=== PATIENT | female | born 1980 | race Caucasian/White ===

== ENCOUNTER → 2020-07-15 14:53 | Outpatient (CLI) | payer OTHER, SELFPAY ==
[2020-07-18 07:42] LABS: SARS-COV-2 TOTAL ABS Reactive (Nonreactive)
== END ==
PROVIDERS: PCP Family Medicine; Referring Provider Family Medicine; Visit Provider Family Medicine
DX: U07.1 COVID-19 (principal)
CPT/HCPCS: 36415; 86769

== ENCOUNTER → 2020-10-08 11:09 | Outpatient (CLI) | payer OTHER, SELFPAY ==
[2020-10-08 12:38] LABS: Vitamin D,25 Hydroxy 19.8 ng/mL
[2020-10-08 12:44] LABS: ALB/GLOB Ratio 1.1 RATIO (0.9-2.4); AST(SGOT) 13 U/L (15-37); Alanine Aminotransfer ALT/SGPT 17 U/L (13-56); Albumin, Serum 3.8 g/dL (3.2-5.0); Alkaline Phosphatase 52 U/L (45-117); Anion Gap 6 (5-15); BUN 12 mg/dL (7-18); BUN/Creat Ratio 15.6 RATIO (10-20); Calcium,Total 8.8 mg/dL (8.5-10.1); Chloride 108 mmol/L (98-107); Cholesterol 183 mg/dL (200); Creatinine, Serum 0.77 mg/dL (0.55-1.02); EST Glomerular Filtration Rate 89 mL/min (>60); Est Glom Filt Rate - Afr Amer 107 mL/min (>60); Free T3 2.2 pg/mL (2.18-3.98); Globulin 3.6 g/dL (2.2-4.2); Glucose 76 mg/dL (74-106); High Density Lipoprotein 58 mg/dL; Potassium 3.9 mmol/L (3.5-5.1); Protein, Total 7.4 g/dL (6.4-8.2); Sodium Level 140 mmol/L (136-145); T4 Free Direct 0.97 ng/dL (0.76-1.46); Thyroid Stim Hormone (TSH) 1.46 uIU/mL (0.358-3.74); Triglycerides 150 mg/dL; Very Low Density Lipoprotein 30 mg/dL (5-40)
[2020-10-14 13:51] LABS: SARS-COV-2 TOTAL ABS Reactive (Nonreactive)
== END ==
PROVIDERS: Nurse Practitioner Adult Health; PCP Family Medicine; Referring Provider Family Medicine; Visit Provider Family Medicine
DX: Z00.00 Encounter for general adult medical examination without abnormal findings (principal); U07.1 COVID-19; K58.9 Irritable bowel syndrome, unspecified; E04.9 Nontoxic goiter, unspecified; E55.9 Vitamin D deficiency, unspecified; Z13.220 Encounter for screening for lipoid disorders
CPT/HCPCS: 36415; 80053; 80061; 82306; 84439; 84443; 84481; 86769

== ENCOUNTER → 2020-12-02 12:30 | Outpatient (CLI) | payer OTHER, SELFPAY ==
[2020-12-02 12:43] LABS: Red Blood Cells-Urine 0 SEEN /hpf (0-5)
[2020-12-02 15:11] LABS: Hematocrit 38.8 % (37-47); Mean Corp Hgb Conc 30.9 g/dL (32-36); Mean Corpuscular Hgb 26.4 pg (27.0-32.0); Mean Corpuscular Volume 85.3 fL (81-99); Mean Platelet Vol. 12.3 fl (6.2-12.0); Platelet Count 201 K/mm3 (150-450); RBC Distribution Width CV 13.1 % (11.6-14.6); RBC Distribution Width SD 40.4 fl (35.1-43.9); Red Blood Count 4.55 M/mm3 (4.2-5.4); White Blood Count 5.1 K/mm3 (4.4-11.0)
[2020-12-02 15:14] LABS: Color, Urine Yellow (Yellow); Glucose, Dipstick Normal (Normal); Ketone-Dipstick Negative (Negative); Leukocyte Esterase-Dipstick Negative /ul (Negative); Nitrite-Dipstick Negative (Negative); Occult Blood-Urine Negative /ul (Negative); Protein-Dipstick 15 mg/dl (Negative); Specific Gravity, Urine 1.015 (1.002-1.030); Urine Bilirubin Dipstick Negative (Negative); Urine Clarity Sl. Cloudy (Clear); Urine Urobilinogen Normal (Normal)
[2020-12-02 15:31] LABS: ALB/GLOB Ratio 1.1 RATIO (0.9-2.4); AST(SGOT) 10 U/L (15-37); Alanine Aminotransfer ALT/SGPT 18 U/L (13-56); Albumin, Serum 4.1 g/dL (3.2-5.0); Alkaline Phosphatase 54 U/L (45-117); Anion Gap 4 (5-15); BUN 10 mg/dL (7-18); BUN/Creat Ratio 12.3 RATIO (10-20); CRP < 2.90 mg/L (0.0-3.0); Calcium,Total 8.9 mg/dL (8.5-10.1); Chloride 106 mmol/L (98-107); Creatinine, Serum 0.81 mg/dL (0.55-1.02); EST Glomerular Filtration Rate 84 mL/min (>60); Est Glom Filt Rate - Afr Amer 101 mL/min (>60); Globulin 3.6 g/dL (2.2-4.2); Glucose 83 mg/dL (74-106); Potassium 3.6 mmol/L (3.5-5.1); Protein, Total 7.7 g/dL (6.4-8.2); Sodium Level 140 mmol/L (136-145)
[2020-12-02 15:47] LABS: Bacteria 2+ /hpf (None Seen); Squamous Epithelial Cells - UA 10-25 SEEN /hpf (5-10); White Blood Cells 0-5 SEEN /hpf (0-5)
[2020-12-02 15:48] LABS: Mucous, Urine 3+ /hpf (<or=2+)
[2020-12-02 16:05] LABS: Erythrocyte Sedimentation Rate 3 mm/hr (0-30)
[2020-12-06 17:27] LABS: Anti-Nuclear Antibody Test Negative (.); Anti-dsDNA Ab <1 IU/mL (0-9)
== END ==
PROVIDERS: PCP Family Medicine; Referring Provider Dermatology; Visit Provider Dermatology
DX: L30.9 Dermatitis, unspecified (principal); D17.21 Benign lipomatous neoplasm of skin and subcutaneous tissue of right arm
CPT/HCPCS: 36415; 80053; 81001; 85027; 85652; 86038; 86140; 86225

== ENCOUNTER → 2021-07-23 15:38 | Outpatient (CLI) | payer OTHER, SELFPAY | PROVIDERS: PCP Family Medicine; Referring Provider Family Medicine; Visit Provider Family Medicine | DX: U07.1 COVID-19 (principal) | CPT/HCPCS: 36415; 86769 ==

== ENCOUNTER → 2022-10-31 | Outpatient (CLI) | payer OTHER, SELFPAY ==
--- NOTE | 2022-10-31 15:51 | RAD_ITS ---
EXAM: XR CHEST, 2 VIEWS CLINICAL INDICATION: SOB TECHNIQUE: Frontal and lateral views of the chest. This report was created using [employer] report generation technology. COMPARISON: 07/23/2015 FINDINGS: LUNGS AND PLEURAL SPACES: Unremarkable. No consolidation or edema. No pneumothorax. No effusion. HEART: Unremarkable. Cardiac silhouette not enlarged. MEDIASTINUM: Central airways and mediastinal contour are unremarkable. BONES/JOINTS: Unremarkable. SOFT TISSUES: Unremarkable. RAD/Chest PA and Lateral IMPRESSION: No radiographic evidence of acute cardiopulmonary disease. Electronically Signed: Shayan Hoyos MD at 2:30 EDT ,
[2022-10-31 18:20] LABS: Absolute Lymphocyte Count 1.78 X10^3/uL (0.83-4.51); Absolute Neutrophil Count 14.5 X10^3/uL (2.0-7.7); Basophil# 0.03 X10^3/uL; Basophil% 0.2 % (0-1); Eosinophil# 0.02 X10^3/uL; Eosinophils% 0.1 % (0-5); Hematocrit 42.8 % (37-47); Hemoglobin 13.5 g/dL (12.0-15.0); Lymphocyte # 1.78 X10^3/ul (0.83-4.51); Lymphocyte % 9.9 % (19-41); Mean Corp Hgb Conc 31.5 g/dL (32-36); Mean Corpuscular Hgb 26.6 pg (27.0-32.0); Mean Corpuscular Volume 84.4 fL (81-99); Mean Platelet Vol. 12.3 fl (6.2-12.0); Monocyte# 1.63 X10^3/uL; Monocyte% 9.1 % (0-10); NRBC Flagged by Analyzer 0 % (0-5); Neutrophil # 14.45 X10^3/uL (2.7-7.7); Neutrophil % 80.3 % (47-70); POSITIVE DIFFERENTIAL YES; Platelet Count 230 K/mm3 (150-450); RBC Distribution Width CV 13.5 % (11.6-14.6); RBC Distribution Width SD 41.6 fl (35.1-43.9); Red Blood Count 5.07 M/mm3 (4.2-5.4)
[2022-10-31 18:29] LABS: Anion Gap 8 (5-15); BUN 14 mg/dL (7-18); BUN/Creat Ratio 15.8 RATIO (10-20); Calcium,Total 9.4 mg/dL (8.5-10.1); Chloride 105 mmol/L (98-107); Creatinine, Serum 0.89 mg/dL (0.55-1.02); EST Glomerular Filtration Rate 75 mL/min (>60); Est Glom Filt Rate - Afr Amer 90 mL/min (>60); Glucose 105 mg/dL (74-106); Potassium 3.6 mmol/L (3.5-5.1); Sodium Level 139 mmol/L (136-145)
[2022-10-31 18:37] LABS: BNP,B-Type NATRIURETIC PEPTIDE 36.2 pg/mL (0-100)
[2022-10-31 18:49] LABS: Differential Indicated SCAN CRITERIA MET
[2022-10-31 19:23] LABS: Differential Comment SCANNED
[2022-10-31 19:24] LABS: Platelet Estimate ADEQUATE (ADEQ)
[2022-10-31 22:54] LABS: Fibrinogen 297 mg/dl (203-444)
[2022-10-31 22:59] LABS: D-Dimer Quantitative (DVT/PE) < 0.27 FEU/ug/m (0.27-0.49)
[2022-11-01 12:15] LABS: Pathologist Review Reviewed
== END | disposition home or self-care (01) ==
PROVIDERS: PCP Family Medicine; Referring Provider Nurse Practitioner Family; Visit Provider Nurse Practitioner Family
DX: R06.02 Shortness of breath (principal)
CPT/HCPCS: 36415; 71046; 80048; 83880; 85025; 85379; 85384

== ENCOUNTER → 2022-12-21 | Outpatient (CLI) | payer OTHER, SELFPAY ==
[2022-12-21 17:59] LABS: Absolute Lymphocyte Count 2.23 X10^3/uL (0.83-4.51); Absolute Neutrophil Count 5.6 X10^3/uL (2.0-7.7); Basophil# 0.02 X10^3/uL; Basophil% 0.2 % (0-1); Eosinophil# 0.21 X10^3/uL; Eosinophils% 2.4 % (0-5); Hematocrit 40.6 % (37-47); Hemoglobin 12.8 g/dL (12.0-15.0); Lymphocyte # 2.23 X10^3/ul (0.83-4.51); Lymphocyte % 25.4 % (19-41); Mean Corp Hgb Conc 31.5 g/dL (32-36); Mean Corpuscular Hgb 26.8 pg (27.0-32.0); Mean Corpuscular Volume 85.1 fL (81-99); Mean Platelet Vol. 12.3 fl (6.2-12.0); Monocyte# 0.75 X10^3/uL; Monocyte% 8.5 % (0-10); NRBC Flagged by Analyzer 0 % (0-5); Neutrophil # 5.56 X10^3/uL (2.7-7.7); Neutrophil % 63.3 % (47-70); Platelet Count 171 K/mm3 (150-450); RBC Distribution Width CV 13.7 % (11.6-14.6); RBC Distribution Width SD 42.5 fl (35.1-43.9); Red Blood Count 4.77 M/mm3 (4.2-5.4); White Blood Count 8.8 K/mm3 (4.4-11.0)
== END | disposition home or self-care (01) ==
LOC: MFPLAB 16:46
PROVIDERS: PCP Family Medicine; Visit Provider Nurse Practitioner Family
DX: D72.829 Elevated white blood cell count, unspecified (principal)
CPT/HCPCS: 36415; 85025

== ENCOUNTER → 2023-01-17 | Outpatient (CLI) | payer OTHER, SELFPAY ==
[2023-01-17 12:21] LABS: Hematocrit 41.2 % (37-47); Mean Corp Hgb Conc 31.6 g/dL (32-36); Mean Corpuscular Hgb 27.6 pg (27.0-32.0); Mean Corpuscular Volume 87.5 fL (81-99); Mean Platelet Vol. 12.4 fl (6.2-12.0); Platelet Count 174 K/mm3 (150-450); RBC Distribution Width CV 13.3 % (11.6-14.6); RBC Distribution Width SD 42.6 fl (35.1-43.9); Red Blood Count 4.71 M/mm3 (4.2-5.4); White Blood Count 5.6 K/mm3 (4.4-11.0)
[2023-01-17 12:35] LABS: Vitamin D,25 Hydroxy 27.5 ng/mL
[2023-01-17 12:45] LABS: Anion Gap 7 (5-15); BUN 16 mg/dL (7-18); BUN/Creat Ratio 15.2 RATIO (10-20); Calcium,Total 9.3 mg/dL (8.5-10.1); Chloride 109 mmol/L (98-107); Creatinine, Serum 1.05 mg/dL (0.55-1.02); EST Glomerular Filtration Rate 61 mL/min (>60); Est Glom Filt Rate - Afr Amer 74 mL/min (>60); Glucose 79 mg/dL (74-106); Potassium 4.5 mmol/L (3.5-5.1); Sodium Level 141 mmol/L (136-145); Thyroid Stim Hormone (TSH) 1.87 uIU/mL (0.358-3.74)
== END | disposition home or self-care (01) ==
LOC: MFPLAB 10:27
PROVIDERS: PCP Family Medicine; Visit Provider Nurse Practitioner Family
DX: E55.9 Vitamin D deficiency, unspecified (principal); Z13.1 Encounter for screening for diabetes mellitus; R53.83 Other fatigue
CPT/HCPCS: 36415; 80048; 82306; 84443; 85027

== ENCOUNTER → 2023-01-18 | Outpatient (CLI) | payer OTHER, SELFPAY ==
[2023-01-18 15:51] LABS: Erythrocyte Sedimentation Rate 8 mm/hr (0-30)
[2023-01-18 16:11] LABS: CRP, High Sensitivity Cardiac 1.11 mg/L
== END | disposition home or self-care (01) ==
PROVIDERS: PCP Family Medicine
DX: G43.711 Chronic migraine without aura, intractable, with status migrainosus (principal)
CPT/HCPCS: 36415; 85652; 86141

== ENCOUNTER → 2024-06-10 | Outpatient (CLI) | payer OTHER, SELFPAY ==
--- NOTE | 2024-06-10 07:32 | US_ITS ---
STUDY: RIGHT UPPER QUADRANT ABDOMINAL ULTRASOUND REASON FOR EXAM: Female, 43 years old. Abdominal pain wraps around to the back TECHNIQUE: Transabdominal ultrasound was performed with real-time and static marin scale imaging. TECHNICAL QUALITY: Adequate. COMPARISON: None. FINDINGS: Liver: The liver measures 15.2 cm. There is increased echogenicity consistent with fatty infiltration. The bile ducts are within normal limits. There is hepatic color flow. The direction of portal flow is hepatopetal. There is no demonstrated mass lesion. Gallbladder: Normal distended gallbladder. The gallbladder wall measures 2 mm. There is no pericholecystic fluid. There are no gallstones. Common Bile Duct (C.B.D.): The common bile duct measures 6 mm. Pancreas: Normal size of the head, body and tail of the pancreas.. There is normal echogenicity of the pancreas. There is no demonstrated pancreatic mass or cyst. Right Kidney: Normal size of the right kidney. The right kidney measures 10.3 x 5.5 cm. Normal renal cortex. There is no demonstrated renal mass or cyst. There is no right hydronephrosis. There is no ascites. US/Abdomen Limited IMPRESSION: Normal abdominal ultrasound examination. Electronically Signed: Bharat Rojo MD at 13:23 EDT ,
--- OUTSIDE RECORDS SUMMARY | 2024-06-10 07:33 | XMS RPT_ITS | CCD ---
Author Organization [facility] Care Team Providers Care Coating Machine Feeder Name Role Phone Iliana ALVARES, Maria Fernanda Nance Primary Care Provider ILIANA ALVARES, DR IRVING Primary Care Physician SELF, SELF Referring Unavailable Iliana ALVARES, Maria Fernanda Nance Primary Care Provider Maria Fernanda Barrientos MD Primary Care Provider MARIA FERNANDA BARRIENTOS Primary Care Unavailabl e GRADY DEBORAH Attending Unavailable MARIA FERNANDA BARRIENTOS Primary Care Unavailabl e GRADY DEBORAH Referring Unavailable MARIA FERNANDA BARRIENTOS Primary Care Unavailabl e RASMUSSEN, DEBORAH Referring Unavailable MARIA FERNANDA BARRIENTOS Primary Care Unavailabl e RASMUSSEN, DEBORAH Referring Unavailable ASHLY RASMUSSENICA Attending Unavailable NIKHIL EDEN Attending Bronwyn BARRIENTOS MD, DR IRVING Primary Care Mirna BARRIENTOS MD, DR IRVING [facility] Mirna CHIANG MD, DR RAO Attending UnavailNIKHIL Schultz Attending Unavailable ILIANA ALVARES, DR IRVING Primary [facility] NIKHIL Martin Attending Unavailable ILIANA ALVARES, DR IRVING Primary Care Mirna BARRIENTOS MD, DR IRVING Primary Care NIKHIL Martin MD Attending Unavailable JENNIFER SAMS MD Consulting NIKHIL Kenney MD Admitting Unavailable NIKHIL EDEN MD Attending Unavailable ILIANA ALVARES, DR IRVING Primary Care NIKHIL Martin MD Attending Unavailable ILIANA ALVARES, DR IRVING Primary Care Mirna EDEN MD, NIKHIL Attending Unavailable ILIANA ALVARES, DR IRVING Primary [facility] VALERIE Ramirez Attending Unavailable ILIANA ALVARES, DR IRVING Primary Care Mirna salgado Medications Current Medications Medication Drug Class(es) Dates Sig (Normalized) Sig (Original) onabotulinumtoxina 100 unt injection (3 sources) Acetylcholine Release Inhibitor Start: 4 inject 1 dose by intramuscular injection every three months Botox 100 units injection Dose : 1.25 unit(s) =, Intramuscular, q3mo, 0 Refill(s) Start Date: 01/09/24 Status: Ordered cholecalciferol 0.125 mg oral tablet (18 sources) Vitamin D Start: 2 take 1 tablet by mouth once daily cholecalciferol (VITAMIN D-3) 5,000 unit tab Take 1 tablet by mouth once daily. 30 tablet 1 03/11/2022 Active Comment on above: Take 1 tablet by heena th once daily. cholestyramine resin 4000 mg powder for oral suspension (11 sources) Bile Acid Sequestrant Start: 1 take 4 g by mouth twice daily at mealtime cholestyramine-sucr ose (QUESTRAN) 4 gram powder Take 4 g by mouth twice daily with meals. 240 g 4 07/08/2021 Active Comment on above: Take 4 g by mouth tw ice daily with meals. clobetasol propionate 0.0005 mg/mg topical ointment (18 sources) Corticosteroid Start: 2 clobetasol (TEMOVATE) 0.05 % ointment Apply thin layer to affected area once a day x 4wks, then every other day for 4 wks, then twice weekly for 4 weeks then PRN for symptoms 60 g 3 03/11/2022 Active Comment on above: Apply thin layer to affected area once a day x 4wks, then every other day for 4 wks, then twice weekly for 4 weeks then PRN for symptoms diclofenac sodium 50 mg delayed release oral tablet (2 sources) Nonsteroidal Anti-inflammatory Drug Start: 4 diclofenac sodium 50 mg oral delayed release tablet Dose : 50 mg = 1 tab(s), Oral, TID, # 20 tab(s), 0 Refill(s), Pharmacy: [id number], 167.6, cm, 05/13/24 20:16:00 EDT, Height, kg, 05/13/24 20:16:00 EDT, Dosing Weight Start Date: 05/14/24 Status: Ordered docusate sodium 100 mg oral capsule (2 sources) Start: 4 Colace 100 mg oral capsule Dose : 100 mg = 1 cap(s), Oral, BID, # 20 cap(s), 0 Refill(s), Pharmacy: [id number], 167.6, cm, 05/13/24 20:16:00 EDT, Height, kg, 05/13/24 20:16:00 EDT, Dosing Weight Start Date: 05/14/24 Status: Ordered ferrous sulfate 325 mg delayed release oral tablet (1 source) Start: 4 End: 5 ferrous sulfate 325 mg (65 mg elemental iron) oral delayed release tablet Dose : 325 mg = 1 tab(s), Oral, BID, # 60 tab(s), 5 Refill(s), Pharmacy: [id number], 167.6, cm, 05/28/24 13:07:00 EDT, Height, kg, 05/28/24 13:07:00 EDT, Dosing Weight Start Date: 05/28/24 Stop Date: 11/24/24 Status: Ordered ketorolac tromethamine 10 mg oral tablet (8 sources) Nonsteroidal Anti-inflammatory Drug, Cyclooxygenase Inhibitor Start: 4 End: 4 take 1 tablet by mouth every six hours as needed keTORolac (TORADOL) 10 mg tablet Indications: Pelvic pain in female Take 1 tablet by mouth every 6 hours as needed. 30 tablet 0 12/26/2023 Active Start: 10-31-2023 End: 11-03-2023 ketorolac 10 mg oral tablet Dose : 10 mg = 1 tab(s), Oral, QID, PRN as needed for pain, not to exceed 40 mg/day and 5 days duration for all dose forms, X 3 day(s), # 12 tab(s), 0 Refill(s), 11/03/23 2:37:00 PM EDT Start Date: 10/31/23 Stop Date: 11/03/23 Status: Ordered Comment on above: Take 1 tablet by heena every 6 hours as needed. levonorgestrel 0.253680 mg/hr intrauterine system (20 sources) Progestin, Progestin-containing Intrauterine Device Start: End: levonorgestrel (MIRENA) 20 mcg/24 hours (8 yrs) 52 mg IUD 1 Each by INTRAUTERINE route as directed. 1 Each 0 08/17/2022 08/15/2030 Active Comment on above: 1 Each by INTRAUTERI NE route as directed. magnesium oxide 250 mg oral tablet (1 source) Start: End: Magnesium 250 mg tablet Dose : 500 mg = 2 tab(s), Oral, qDay, # 20 tab(s), 0 Refill(s) Start Date: 01/09/24 Stop Date: 01/18/24 Status: Ordered metroNIDAZOLE 500 mg oral tablet (4 sources) Nitroimidazole Antimicrobial Start: End: take 1 tablet by mouth twice daily metroNIDAZOLE (FLAGYL) 500 mg tablet Take 1 tablet by mouth two times a day for 7 days. 14 tablet 0 12/12/2023 12/19/2023 Active Start: 03-10-2022 End: 03-17-2022 take 1 tablet by mouth twice daily metroNIDAZOLE (FLAGYL) 500 mg tablet Take 1 tablet by mouth twice daily for 7 days. 14 tablet 0 03/10/2022 03/17/2022 Comment on above: Take 1 tablet by [facility] twice daily for 7 days. mupirocin 0.02 mg/mg topical ointment (2 sources) RNA Synthetase Inhibitor Antibacterial Start: mupirocin 2% topical ointment Apply 1 shaq, Topical, BID, Bilateral intranasal application twice daily x 5 days pre-surgery &/or as many days pre-surgery as possible., Apply to: nostril, each, # 22 gram(s), 0 Refill(s), Pharmacy: [id number], Ointment, 167, cm, 04/25/24 10:16:00 EDT, Height, 87.2, kg, 04/25/24 10:16:00 EDT, Dosing Weight Start Date: 04/25/24 Status: Ordered nortriptyline 10 mg oral capsule (6 sources) Tricyclic Antidepressant Start: nortriptyline 10 mg oral capsule Dose : 10 mg = 1 cap(s), Oral, qHS Start Date: 01/09/24 Status: Ordered oxyCODONE hydrochloride 5 mg oral tablet (2 sources) Opioid Agonist Start: End: oxyCODONE 5 mg oral tablet ( IMMEDIATE release ) Dose : 5 mg = 1 tab(s), Oral, q6h, X 4 day(s), # 16 tab(s), 0 Refill(s), 05/18/24 3:53:00 PM EDT, Pharmacy: [id number], Post-op pain, 167.6, cm, 05/13/24 20:16:00 EDT, Height, 84.8, kg, 05/13/24 20:16:00 EDT, Dosing Weight Start Date: 05/14/24 Stop Date: 05/18/24 Status: Ordered rimegepant 75 mg disintegrating oral tablet (13 sources) Start: rimegepant (NURTEC ODT) 75 mg disintegrating tablet Indications: Migraine without aura and without status migrainosus, not intractable Take 1 tablet by mouth as needed (for migriane pain. Max dose is 1 tab in 24 hrs.). 16 tablet 5 06/17/2022 Active Comment on above: Take 1 tablet by heena th as needed (for migriane pain. Max dose is 1 tab in 24 hrs.). spironolactone 100 mg oral tablet (5 sources) Aldosterone Antagonist Start: spironolactone 100 mg oral tablet Dose : 100 mg = 1 tab(s), Oral, qHS, 0 Refill(s) Start Date: 04/25/24 Status: Ordered valACYclovir 500 mg oral tablet (20 sources) Herpesvirus Nucleoside Analog DNA Polymerase Inhibitor, Herpes Simplex Virus Nucleoside Analog DNA Polymerase Inhibitor, Herpes Zoster Virus Nucleoside Analog DNA Polymerase Inhibitor Start: End: take 2 tablets by mouth twice daily valACYclovir (VALTREX) 1 gram Take 2 tablets by mouth twice daily for 1 day. 4 tablet 5 03/11/2022 03/12/2022 Active Start: 02-22-2022 take 1 tablet by heena th once daily valACYclovir (VALTREX) 500 mg tablet Take 1 tablet by mouth once daily. 30 tablet 11 03/11/2022 Active Comment on above: Take 2 tablets by mo [facility] twice daily for 1 day. Take 1 tablet by heena th once daily. Completed/Discontinued Medications Medication Drug Class(es) Dates Sig (Normalized) Sig (Original) bismuth subsalicylate 262 mg oral tablet (2 sources) Bismuth Bismuth Subsalicylate (PEPTO-BISMOL) 262 mg tab Take by mouth. 0 Active Comment on above: Take by mouth. fluconazole 150 mg oral tablet (1 source) Azole Antifungal Start: 03-10-2022 End: 03-10-2022 take 1 tablet by mouth once fluconazole (DIFLUCAN) 150 mg tablet Take 1 tablet by mouth one time only for 1 dose. 1 tablet 0 03/10/2022 03/10/2022 Comment on above: Take 1 tablet by heean th one time only for 1 dose. halobetasol propionate 0.0005 mg/mg topical ointment (2 sources) Corticosteroid Start: 05-06-2021 halobetasol propionate (ULTRAVATE) 0.05 % ointment Ibuprofen (4 sources) Nonsteroidal Anti-inflammatory Drug Start: 07-25-2017 ibuprofen (MOTRIN ORAL) 0 Refill(s) 0 07/25/2017 Active Start: 07-25-2017 Motrin 0 Refil l(s) Start Date: 07/25/17 Status: Ordered Comment on above: 0 Refill(s) loperamide hydrochloride 2 mg oral tablet (2 sources) Opioid Agonist take 1 tablet by mouth once as needed loperamide HCl (IMODIUM A-D) 2 mg tab Take 2 mg by mouth as needed. 0 Active Comment on above: Take 2 mg by mouth a s needed. phenazopyridine hydrochloride 200 mg oral tablet (2 sources) Start: 10-15-19 take 1 tablet by mouth every eight hours as needed phenazopyridine (PYRIDIUM) 200 mg tablet Take 1 tablet by mouth three times daily as needed. 9 tablet 0 10/15/2021 Active Comment on above: Take 1 tablet by heena three times daily as needed. SUMAtriptan 100 mg oral tablet (2 sources) Serotonin-1b and Serotonin-1d Receptor Agonist Start: 02-14-20 SUMAtriptan (IMITREX) 100 mg tablet TAKE 1 TABLET BY MOUTH NEEDED (TAKE AT MIGRAINE ONSET, MAY REPEAT 2 HOURS LATER IF NEEDED. MAX DOSE IS 2 TABLETS IN 24 DAYS) 0 02/13/2022 Active Comment on above: TAKE 1 TABLET BY HEENA TH NEEDED (TAKE AT MIGRAINE ONSET, MAY REPEAT 2 HOURS LATER IF NEEDED. MAX DOSE IS 2 TABLETS IN 24 DAYS) ubrogepant 50 mg oral tablet (5 sources) Start: 05-16-20 End: 06-17-20 ubrogepant (UBRELVY) 50 mg tablet Indications: Migraine without aura and without status migrainosus, not intractable Take 1 tablet by mouth as needed (take 1 tab at migraine onset. May repeat 2 hrs later if needed). 10 tablet 5 05/16/2022 06/17/2022 Discontinued (Course of therapy completed) Comment on above: Take 1 tablet by heena th as needed (take 1 tab at migraine onset. May repeat 2 hrs later if needed). Problems Problem Classification Problem Date Documented Date Episodic/Chronic Abdominal pain (6 sources) Abdominal pain; Translations: [Unspecified abdominal pain] Onset: 10-31-2023 Episodic Complication of device; implant or graft (3 sources) IUD threads lost; Translations: [Displacement of intrauterine contraceptive device, initial encounter] Episodic Contraceptive and procreative management (7 sources) Intrauterine contraceptive device in situ; Translations: [Encounter for routine checking of intrauterine contraceptive device] Onset: 12-11-2023 Episodic Endometriosis (1 source) Endometriosis (clinical); Translations: [Endometrioma] 12-26-2023 Chronic Genitourinary symptoms and ill-defined conditions (1 source) Urgent desire to urinate; Translations: [Urgency of urination] Episodic Headache; including migraine (7 sources) Migraine without aura, not refractory ; Translations: [Migraine without aura, not intractable, without status migrainosus] Chronic Immunizations and screening for infectious disease (1 source) Encounter for screening for human papillomavirus (HPV); Translations: [Encounter for screening for human papillomavirus (HPV)] Onset: 12-11-2023 Episodic Inflammatory diseases of female pelvic organs (2 sources) Bacterial vaginosis; Translations: [Acute vaginitis] Episodic Menstrual disorders (3 sources) Menorrhagia; Translations: [Excessive and frequent menstruation with regular cycle] Onset: 12-26-2023 12-11-2023 Chronic Mycoses (2 sources) Candidiasis of vagina; Translations: [Candidiasis of vulva and vagina] Episodic Nonmalignant breast conditions (1 source) Breast finding ; Translations: [Dense breast tissue] 12-11-2023 Episodic Other aftercare (1 source) Surgical follow-up; Translations: [Encounter for other specified surgical aftercare] Onset: 05-28-2024 Episodic Other female genital disorders (4 sources) Abnormal uterine bleeding; Translations: [Abnormal uterine and vaginal bleeding, unspecified] Chronic Other female genital disorders (1 source) Vaginal discharge; Translations: [Other specified noninflammatory disorders of vagina] Episodic Other female genital disorders (1 source) Polyp of corpus uteri; Translations: [Polyp of corpus uteri] 12-26-2023 Episodic Other inflammatory condition of skin (2 sources) Pruritus of vulva; Translations: [Pruritus vulvae] Episodic Other nutritional; endocrine; and metabolic disorders (1 source) Unintentional weight gain; Translations: [Abnormal weight gain] 12-11-2023 Episodic Other nutritional; endocrine; and metabolic disorders (1 source) Abnormal weight gain; Translations: [Unintended weight gain] Onset: 12-26-2023 Episodic Other conditions (3 sources) or effect of condition of umbilical cord 03-25-2014 Episodic Other screening for suspected conditions (not mental disorders or infectious disease) (10 sources) Patient encounter status; Translations: [Encounter for screening mammogram for malignant neoplasm of breast] Onset: 12-11-2023 Episodic Polyhydramnios and other problems of amniotic cavity (3 sources) Polyhydramnios 03-25-2014 Episodic Prolapse of female genital organs (3 sources) Vaginal vault prolapse; 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 Breast feeding Status documented as Yes on Admission Unclassified (3 sources) 03-25-2014 Unclassified (1 source) Dense breast tissue; Translations: [Dense breast tissue] Onset: 12-11-2023 Viral infection (2 sources) Herpes labialis; Translations: [Herpesviral vesicular dermatitis] Episodic Results Test Name Value Interpretation Reference Range Facil ity LABORATORYOrdered By: Antonella Ott on 05-28-2024 Appearance (U) Clear (05/28/24 2:07 PM) Normal Clear AH Auto Urine SS Bacteria LM.HPF (Urine sed) [#/Area] 1 /[HPF] Invalid Interpretation Code Negative AH Auto Urine SS Bilirubin Ql (U) Negative (05/28/24 2:07 PM) Normal Neg-Trace AH Auto Urine SS Color (U) Yellow (05/28/24 2:07 PM) Normal AH Auto Urine SS Glucose Test strip (U) [Mass/Vol] Negative Normal Negative AH Auto Urine SS Hemoglobin Auto test strip (U) [Mass/Vol] Small *ABN* (05/28/24 2:07 PM) Invalid Interpretation Code Neg-Trace AH Auto Urine SS Ketones Ql (U) Trace mg/dL Normal Neg-Trace AH Auto Urine SS UA Leuk Est Moderate *ABN* (05/28/24 2:07 PM) Invalid Interpretation Code Negative AH Auto Urine SS UA Mucous Trace /HPF Normal AH Auto Urine SS UA Nitrite Negative (05/28/24 2:07 PM) Normal Negative AH Auto Urine SS UA pH 5.5 (05/28/24 2:07 PM) Normal 5.0 - 8.0 AH Auto Urine SS UA Protein Trace mg/dL Normal Negative AH Auto Urine SS UA RBC 0-2 /HPF Normal 0-2 AH Auto Urine SS UA Spec Grav 1.025 (05/28/24 2:07 PM) Normal 1.006-1.029 AH Auto Urine SS UA Specimen Type Clean Catch (05/28/24 2:07 PM) Normal AH Auto Urine SS UA Squam Epithelial 3-5 /HPF Normal 0-20 AH Au to Urine SS UA Urobilinogen 0.2 E.U./dL Normal 0.2-1.0 AH Auto Urine SS WBC LM.HPF (Urine sed) [#/Area] 5-10 /HPF Invalid Interpretation Code 0-5 AH Auto Urine SS UAon 05-28-2024 Color (U) Yellow Normal [facility] Comment on above: Performed By: #### U AMIC, UA #### [facility] [address] [place] [address] Glucose (U) [Mass/Vol] Negative Normal Negative [facility] Comment on above: Performed By: #### U AMIC, UA #### [place] [address] Ketones Ql (U) Trace Normal Neg-Trace [facility] Comment on above: Performed By: #### U AMIC, UA #### [place] [address] UA Appear Clear Normal Clear [facility] Comment on above: Performed By: #### U AMIC, UA #### [place] [address] UA Blood Small Abnormal Neg-Trace [facility] Comment on above: Performed By: #### U AMIC, UA #### [place] [address] UA Leuk Est Moderate Abnormal Negative [facility] Comment on above: Performed By: #### U AMIC, UA #### [place] [address] UA Nitrite Negative Normal Negative [facility] Comment on above: Performed By: #### U AMIC, UA #### [place] [address] UA pH 5.5 Normal 5.0 - 8.0 [facility] Comment on above: Performed By: #### U AMIC, UA #### [place] [address] UA Protein Trace Normal Negative [facility] Comment on above: Performed By: #### U AMIC, UA #### [place] [address] UA Spec Grav 1.025 Normal 1.006-1.029 [facility] Comment on above: Performed By: #### U AMIC, UA #### [place] [address] UA Specimen Type Clean Catch Normal [facility] Comment on above: Performed By: #### U AMIC, UA #### [place] [address] UA Urobilinogen 0.2 E.U./dL Normal 0.2-1.0 [facility] Comment on above: Performed By: #### U AMIC, UA #### [facility] [address] [place] [address] Urobilinogen (U) [Mass/Vol] Negative Normal Neg-Trace [facility] Comment on above: Performed By: #### U AMIC, UA #### [facility] [address] [place] [address] UAMICon 05-28-2024 UA Bacteria 1+ /hpf Abnormal Negative [facility] Comment on above: Performed By: #### U AMIC, UA #### [facility] [address] [place] [address] UA Mucous Trace [facility] Comment on above: Performed By: #### U AMIC, UA #### [place] [address] UA RBC 0-2 Normal 0-2 [facility] Comment on above: Performed By: #### U AMIC, UA #### [facility] [address] [place] [address] UA Squam Epithelial 3-5 Normal 0-20 [facility] Comment on above: Performed By: #### U AMIC, UA #### [facility] [address] [place] [address] UA WBC 5-10 Abnormal 0-5 [facility] Comment on above: Performed By: #### U AMIC, UA #### [place] [address] .GFRon 05-17-2024 GFR Non- >60 Normal [facility] Comment on above: Result Comment: GFR Population mean for , Non- Americans Ages 20-29 = 116 mL/min/1.73 sq.m. Ages 30-39 = 107 mL/min/1.73 sq.m. Ages 40-49 = 99 mL/min/1.73 sq.m. Ages 50-59 = 93 mL/min/1.73 sq.m. Ages 60-69 = 85 mL/min/1.73 sq.m. Ages 70+ = 75 mL/min/1.73 sq.m. Chronic Kidney Disease: Less than 60 mL/min/1.73 square meters End Stage Renal Disease: Less than 15 mL/min/1.73 square meters Performed By: #### M DW, CBC, ADIFF, ANEU, LIP, CMP, GFR ####[address] [address] GFR >60 Normal [facility] Comment on above: Result Comment: GFR Population mean for , Non- Americans Ages 20-29 = 116 mL/min/1.73 sq.m. Ages 30-39 = 107 mL/min/1.73 sq.m. Ages 40-49 = 99 mL/min/1.73 sq.m. Ages 50-59 = 93 mL/min/1.73 sq.m. Ages 60-69 = 85 mL/min/1.73 sq.m. Ages 70+ = 75 mL/min/1.73 sq.m. Chronic Kidney Disease: Less than 60 mL/min/1.73 square meters End Stage Renal Disease: Less than 15 mL/min/1.73 square meters Performed By: #### M DW, CBC, ADIFF, ANEU, LIP, CMP, GFR ####[address] [address] CMPon 05-17-2024 Albumin Level 3.7 G/dL Normal 3.2-4.8 [facility] Comment on above: Performed By: #### M DW, CBC, ADIFF, ANEU, LIP, CMP, GFR ####[address] [address] Albumin/Globulin [Mass ratio] 1.3 {ratio} Normal 0.9-1.6 [facility] Comment on above: Performed By: #### M DW, CBC, ADIFF, ANEU, LIP, CMP, GFR ####[address] [address] ALP [Catalytic activity/Vol] 52 U/L Normal 38-126 [facility] Comment on above: Performed By: #### M DW, CBC, ADIFF, ANEU, LIP, CMP, GFR ####[address] [address] ALT [Catalytic activity/Vol] 19 U/L Normal 10-49 [facility] Comment on above: Performed By: #### M DW, CBC, ADIFF, ANEU, LIP, CMP, GFR ####[address] [address] AST [Catalytic activity/Vol] 22 U/L Normal 8-34 [facility] Comment on above: Performed By: #### M DW, CBC, ADIFF, ANEU, LIP, CMP, GFR ####[place] [address] Bili Total 0.40 mg/dL Normal 0.20-1.20 [facility] Comment on above: Result Comment: Use of this assay is not recommended for patients undergoing treatment with eltrombopag due to the potential for falsely elevated results. Performed By: #### M DW, CBC, ADIFF, ANEU, LIP, CMP, GFR ####[place] [address] BUN/Creatinine Ratio 8.1 ratio Low 10.0-22.0 [facility] Comment on above: Performed By: #### M DW, CBC, ADIFF, ANEU, LIP, CMP, GFR ####[place] [address] Calcium [Mass/Vol] 8.9 mg/dL Normal 8.7-10.4 [facility] Comment on above: Performed By: #### M DW, CBC, ADIFF, ANEU, LIP, CMP, GFR ####[address] [address] Chloride [Moles/Vol] 108 mmol/L Normal 98-110 [facility] Comment on above: Performed By: #### M DW, CBC, ADIFF, ANEU, LIP, CMP, GFR ####[address] [address] CO2 [Moles/Vol] 29 mmol/L Normal 22-32 [facility] Comment on above: Performed By: #### M DW, CBC, ADIFF, ANEU, LIP, CMP, GFR ####[place] [id number] Creatinine [Mass/Vol] 0.86 mg/dL Normal 0.50-1.20 [facility] Comment on above: Result Comment: Test ing performed on Xueersi analyzer using enzymatic creatinine methodology. Performed By: #### M DW, CBC, ADIFF, ANEU, LIP, CMP, GFR ####[address] [address] Electrolyte Balance 5.0 mEq/L Normal 4.0-15.0 [facility] Comment on above: Performed By: #### M DW, CBC, ADIFF, ANEU, LIP, CMP, GFR ####[place] [id number] Globulin 2.9 G/dL Normal 1.5-3.8 [facility] Comment on above: Performed By: #### M DW, CBC, ADIFF, ANEU, LIP, CMP, GFR ####[place] [address] Glucose [Mass/Vol] 102 mg/dL Normal 70-110 [facility] Comment on above: Performed By: #### M DW, CBC, ADIFF, ANEU, LIP, CMP, GFR ####[place] [id number] Potassium [Moles/Vol] 3.7 mmol/L Normal 3.5-5.0 [facility] Comment on above: Performed By: #### M DW, CBC, ADIFF, ANEU, LIP, CMP, GFR ####[place] [id number] Sodium [Moles/Vol] 142 mmol/L Normal 136-145 [facility] Comment on above: Performed By: #### M DW, CBC, ADIFF, ANEU, LIP, CMP, GFR ####[place] [address] Total Protein 6.6 G/dL Normal 5.7-8.2 [facility] Comment on above: Result Comment: No te - New Reference Range in effect 20 Performed By: #### M DW, CBC, ADIFF, ANEU, LIP, CMP, GFR ####[place] [id number] Urea nitrogen [Mass/Vol] 7.0 mg/dL Low 8.0-22.0 [facility] Comment on above: Performed By: #### M DW, CBC, ADIFF, ANEU, LIP, CMP, GFR ####[place] [address] LIPon 05-17-2024 Lipase Level 24 U/L Normal 12-53 [facility] Comment on above: Result Comment: No te - New Reference Range in effect 20 Performed By: #### M DW, CBC, ADIFF, ANEU, LIP, CMP, GFR ####[place] [address] .Auto Diffon 05-16-2024 Basophil, Absolute 0.0 10 3/mcL Normal 0.0-0.3 [facility] Comment on above: Performed By: #### M DW, CBC, ADIFF, ANEU, LIP, CMP, GFR ####[place] [address] Basophils/100 WBC (Bld) 0.2 % Normal 0.0-2.5 [facility] Comment on above: Performed By: #### M DW, CBC, ADIFF, ANEU, LIP, CMP, GFR ####[place] [address] Eosinophil, Absolute 0.2 10 3/mcL Normal 0.0-0.7 [facility] MAIN Comment on above: Performed By: #### M DW, CBC, ADIFF, ANEU, LIP, CMP, GFR ####[place] [address] Eosinophils/100 WBC (Bld) 2.2 % Normal 0.0-6.0 [facility] Comment on above: Performed By: #### M DW, CBC, ADIFF, ANEU, LIP, CMP, GFR ####[place] [address] Lymphocyte, Absolute 1.5 10 3/mcL Normal 0.9-4.3 [facility] Comment on above: Performed By: #### M DW, CBC, ADIFF, ANEU, LIP, CMP, GFR ####[address] [address] Lymphocytes/100 WBC (Bld) 19.9 % Low 20.0-40.0 [facility] Comment on above: Performed By: #### M DW, CBC, ADIFF, ANEU, LIP, CMP, GFR ####[address] [address] Monocyte, Absolute 0.7 10 3/mcL Normal 0.1-1.4 [facility] MAIN Comment on above: Performed By: #### M DW, CBC, ADIFF, ANEU, LIP, CMP, GFR ####[address] [address] Monocytes/100 WBC (Bld) 8.8 % Normal 2.0-13.0 [facility] Comment on above: Performed By: #### M DW, CBC, ADIFF, ANEU, LIP, CMP, GFR ####[address] [address] Neutrophils/100 WBC (Bld) 68.9 % Normal 50.0-75.0 [facility] Comment on above: Performed By: #### M DW, CBC, ADIFF, ANEU, LIP, CMP, GFR ####[place] [address] .MDWon 05-16-2024 Monocyte Distribution Width 15.66 Normal 0.00-20.00 [facility] Comment on above: Result Comment: For ED adult patients suspected of sepsis, MDW<=20.0 does not rule out sepsis or risk of sepsis Performed By: #### M DW, CBC, ADIFF, ANEU, LIP, CMP, GFR ####[address] [address] .NEUABSon 05-16-2024 Neutrophil, Absolute 5.4 10 3/mcL Normal 2.3-8.1 [facility] Comment on above: Performed By: #### M DW, CBC, ADIFF, ANEU, LIP, CMP, GFR ####[place] [address] CBCon 05-16-2024 Erythrocyte distribution width (RBC) [Ratio] 13.6 % Normal 11.5-15.5 [facility] Comment on above: Performed By: #### M DW, CBC, ADIFF, ANEU, LIP, CMP, GFR ####[place] [address] Hematocrit (Bld) [Volume fraction] 31.6 % Low 34.0-46.0 [facility] Comment on above: Performed By: #### M DW, CBC, ADIFF, ANEU, LIP, CMP, GFR ####[place] [address] Hgb 10.9 G/dL Low 12.0-16.0 [facility] Comment on above: Performed By: #### M DW, CBC, ADIFF, ANEU, LIP, CMP, GFR ####[place] [address] MCH (RBC) [Entitic mass] 30.3 pg Normal 27.0-33.0 [facility] Comment on above: Performed By: #### M DW, CBC, ADIFF, ANEU, LIP, CMP, GFR ####[place] [address] MCHC 34.4 G/dL Normal 32.0-36.0 [facility] Comment on above: Performed By: #### M DW, CBC, ADIFF, ANEU, LIP, CMP, GFR ####[place] [address] MCV (RBC) [Entitic vol] 88.0 fL Normal 80.0-99.0 [facility] Comment on above: Performed By: #### M DW, CBC, ADIFF, ANEU, LIP, CMP, GFR ####[place] [address] Platelet 129 10 3/mcL Low 150-450 [facility] Comment on above: Performed By: #### M DW, CBC, ADIFF, ANEU, LIP, CMP, GFR ####[place] [address] Platelet mean volume (Bld) [Entitic vol] 9.7 fL Normal 6.6-10.5 [facility] Comment on above: Performed By: #### M DW, CBC, ADIFF, ANEU, LIP, CMP, GFR ####[facility] [place] [address] RBC 3.59 10 6/mcL Low 4.10-5.30 [facility] Comment on above: Performed By: #### M DW, CBC, ADIFF, ANEU, LIP, CMP, GFR ####[facility] [place] [address] WBC 7.8 10 3/mcL Normal 4.5-10.8 [facility] Comment on above: Performed By: #### M DW, CBC, ADIFF, ANEU, LIP, CMP, GFR ####[facility] [place] [id number] LABORATORYOrdered By: SYSTEM SYSTEM on 05-16-2024 Albumin BCP dye [Mass/Vol] 3.7 G/dL Normal 3.2 - 4.8 G/dL ADM SS Albumin/Globulin [Mass ratio] 1.3 {ratio} Normal 0.9 - 1.6 ratio ADM SS ALP [Catalytic activity/Vol] 52 U/L Normal 38 - 126 U/L ADM SS ALT No additional P-5'-P [Catalytic activity/Vol] 19 U/L Normal 10 - 49 U/L ADM SS AST [Catalytic activity/Vol] 22 U/L Normal 8 - 34 U/L ADM SS Basophils (Bld) [#/Vol] 0.0 103/mcL Normal 0.0 - 0.3 10^3/mcL Workflow SS Basophils/100 WBC (Bld) 0.2 % Normal 0.0 - 2.5 % Workflow SS Bilirubin [Mass/Vol] 0.40 mg/dL Normal 0.20 - 1.20 mg/dL ADM SS Comment on above: Interpretive Data: U se of this assay is not recommended for patients undergoing treatment with eltrombopag due to the potential for falsely elevated results. Calcium [Mass/Vol] 8.9 mg/dL Normal 8.7 - 10. 4 mg/dL AH ADM SS Chloride [Moles/Vol] 108 mmol/L Normal 98 - 110 mEq/L AH ADM SS CO2 [Moles/Vol] 29 mmol/L Normal 22 - 32 mEq/L AH ADM SS Creatinine [Mass/Vol] 0.86 mg/dL Normal 0.50 - 1.20 mg/dL [facility] Comment on above: Interpretive Data: T esting performed on [employer] CH analyzer using enzymatic creatinine methodology. Electrolyte Balance 5.0 mEq/L Normal 4.0 - 15 .0 mEq/L ADM Eosinophils (Bld) [#/Vol] 0.2 103/mcL Normal 0.0 - 0.7 10^3/mcL Workflow Eosinophils/100 WBC (Bld) 2.2 % Normal 0.0 - 6.0 % Workflow SS Erythrocyte distribution width (RBC) [Ratio] 13.6 % Normal 11.5 - 15.5 % Workflow SS GFR/1.73 sq M.predicted among blacks MDRD (S/P/Bld) [Vol rate/Area] ml/min/1.73sqm Invalid Interpretation Code [facility] Comment on above: Interpretive Data: GFR Population mean for , Non- Americans Ages 20-29 = 116 mL/min/1.73 sq.m. Ages 30-39 = 107 mL/min/1.73 sq.m. Ages 40-49 = 99 mL/min/1.73 sq.m. Ages 50-59 = 93 mL/min/1.73 sq.m. Ages 60-69 = 85 mL/min/1.73 sq.m. Ages 70+ = 75 mL/min/1.73 sq.m. Chronic Kidney Disease: Less than 60 mL/min/1.73 square meters End Stage Renal Disease: Less than 15 mL/min/1.73 square meters GFR/1.73 sq M.predicted among non-blacks MDRD (S/P/Bld) [Vol rate/Area] ml/min/1.73sqm Invalid Interpretation Code [facility] Comment on above: Interpretive Data: GFR Population mean for , Non- Americans Ages 20-29 = 116 mL/min/1.73 sq.m. Ages 30-39 = 107 mL/min/1.73 sq.m. Ages 40-49 = 99 mL/min/1.73 sq.m. Ages 50-59 = 93 mL/min/1.73 sq.m. Ages 60-69 = 85 mL/min/1.73 sq.m. Ages 70+ = 75 mL/min/1.73 sq.m. Chronic Kidney Disease: Less than 60 mL/min/1.73 square meters End Stage Renal Disease: Less than 15 mL/min/1.73 square meters Globulin 2.9 G/dL Normal 1.5 - 3.8 G/dL ADM SS Glucose [Mass/Vol] 102 mg/dL Normal 70 - 110 mg/dL AH ADM SS Hematocrit (Bld) [Volume fraction] 31.6 % Low 34.0 - 46.0 % AH Workflow SS Hemoglobin (Bld) [Mass/Vol] 10.9 G/dL Low 12.0 - 16.0 G/dL AH Workflow SS Lipase [Catalytic activity/Vol] 24 U/L Normal 12 - 53 U/L AH ADM SS Comment on above: Interpretive Data: * *Note - New Reference Range in effect 20 Lymphocytes (Bld) [#/Vol] 1.5 103/mcL Normal 0.9 - 4.3 10^3/mcL AH Workflow SS Lymphocytes/100 WBC (Bld) 19.9 % Low 20.0 - 40.0 % AH Workflow SS MCH (RBC) [Entitic mass] 30.3 pg Normal 27.0 - 33.0 pg AH Workflow SS MCHC 34.4 G/dL Normal 32.0 - 36.0 G/dL AH Workflow SS MCV (RBC) [Entitic vol] 88.0 fL Normal 80.0 - 99.0 fL AH Workflow SS Monocyte distribution width Auto (Bld) [Entitic vol] 15.66 1 Normal 0.00 - 20.00 AH Workflow SS Comment on above: Result Comment: For ED adult patients suspected of sepsis, MDW<=20.0 does not rule out sepsis or risk of sepsis Monocytes (Bld) [#/Vol] 0.7 103/mcL Normal 0.1 - 1.4 10^3/mcL AH Workflow SS Monocytes/100 WBC (Bld) 8.8 % Normal 2.0 - 13.0 % AH Workflow SS Neutrophils (Bld) [#/Vol] 5.4 103/mcL Normal 2.3 - 8.1 10^3/mcL AH Workflow SS Neutrophils/100 WBC (Bld) 68.9 % Normal 50.0 - 75.0 % AH Workflow SS Platelet mean volume (Bld) [Entitic vol] 9.7 fL Normal 6.6 - 10.5 fL AH Workflow SS Platelets (Bld) [#/Vol] 129 103/mcL Low 150 - 450 10^3/mcL AH Workflow SS Potassium [Moles/Vol] 3.7 mmol/L Normal 3.5 - 5.0 mEq/L AH ADM SS Protein [Mass/Vol] 6.6 G/dL Normal 5.7 - 8.2 G/dL AH ADM SS Comment on above: Interpretive Data: * *Note - New Reference Range in effect 20 RBC (Bld) [#/Vol] 3.59 106/mcL Low 4.10 - 5.3 0 10^6/mcL AH Workflow SS Sodium [Moles/Vol] 142 mmol/L Normal 136 - 145 mEq/L A H ADM SS Urea nitrogen [Mass/Vol] 7.0 mg/dL Low 8.0 - 22.0 mg/dL ADM SS Urea nitrogen/Creatinine [Mass ratio] 8.1 ratio Low 10.0 - 22.0 ratio AH ADM SS WBC (Bld) [#/Vol] 7.8 103/mcL Normal 4.5 - 10.8 10^3/mcL AH Workflow SS Final Surgical Pathology Rep [facility] 05-15-2024 Final Surgical Pathology Report . Pathology Reports Accession: Collected Date/Time: Received Date/Time: Pathologist: [id number] 05/13/2024 13:56 EDT 05/14/2024 07:56 EDT MELISSA BURRELL MD Final Surgical Pathology Report DIAGNOSIS: A. UTERUS AND CERVIX: - CERVIX -MILD CHRONIC CERVICITISENDOMETRIUM -GLANDULAR ATROPHY AND STROMAL DECIDUALIZATION CONSISTENT WITH EXOGENOUS HORMONAL EFFECT B. BILATERAL FALLOPIAN TUBES: - PARATUBAL CYSTS IDENTIFIED CLINICAL INFORMATION: Procedure: LAPAROSCOPIC ASSISTED VAGINAL HYSTERECTOMY, POSSIBLE UNILATERAL SALPINGO-OOPHORECTOMY, ANTERIOR AND POSTERIOR REPAIR, PERINEORRHAPHY, URETHRAL BULKING, CYSTOSCOPY Preoperative diagnosis: DYSMENORRHEA, PROLAPSE Postoperative diagnosis: DYSMENORRHEA, PROLAPSE SPECIMEN: A UTERUS AND CERVIX B BILATERAL FALLOPIAN TUBES GROSS DESCRIPTION: All parts labelled with patient name and [id number] A. Received in formalin labelled uterus and cervix Weight/dimensions - 119 g and measures 9.5 cm (fundus to cervix), 6.5 cm (cornu to cornu), 4.8 cm (anterior to posterior). Serosa - lopez-pink with multiple posterior adhesions Cervix/endocervix - 5 cm in diameter and 3.7 cm in length. Extending the cervical os and within the endometrial cavity is a T-shaped intrauterine device. Endometrium - triangular-shaped endometrial cavity measuring 2 x 3 cm, endometrium lining measuring 0.1 cm. Myometrium - lopez-pink measuring up to 2.9 cm with no masses or nodules identified. RS-3 Cassette Summary: A1 - Cervix A2 - Anterior endomyometrium A3 - Posterior endomyometrium B. Received in formalin labelled bilateral fallopian tubes are 2 fimbriated non-designated fallopian tube segments the shorter segment measuring 5.5 cm in length, 0.9 cm in diameter and is inked black. The longer segment of fallopian tube measures 6.5 cm in length, 0.6 cm in diameter. RS-1 Viki Ramirez, Pathologists' Automobile Contract Clerk (ASCP) Performed by VIKI RAMIREZ MICROSCOPIC DESCRIPTION: The microscopic examination is performed, except in the case of Gross Only. Pathology Reports Accession: Collected Date/Time: Received Date/Time: Pathologist: [id number] 05/13/2024 13:56 EDT 05/14/2024 07:56 EDT MELISSA BURRELL MD Electronically Signed by Pathology Report verified by [facility] MELISSA BURRELL Sign out Date: 05/15/2024 13:32 Performing Lab: [facility], [address] [place] [address] Pathology Dept Disclaimer If ancillary studies were utilized, the following Laboratory Developed Test (LDT) disclaimer will apply: Under CLIA requirements, [facility] Pathology Laboratory is qualified to perform high complexity testing. For all ancillary stains, positive and negative controls stain appropriately. Performance characteristics of immunohistochemical and chromogenic in-situ hybridization tests have been determined by [facility] Pathology Laboratory. These tests are used for clinical purposes, They should not be regarded as investigational or for research. Normal [facility] .Auto Diffon 05-14-2024 Basophil, Absolute 0.0 10 3/mcL Normal 0.0-0.3 [facility] Comment on above: Performed By: #### C BC, GFR, ADIFF, BMP, ANEU #### [place] [address] Basophils/100 WBC (Bld) 0.0 % Normal 0.0-2.5 [facility] Comment on above: Performed By: #### C BC, GFR, ADIFF, BMP, ANEU #### [address] [address] Eosinophil, Absolute 0.0 10 3/mcL Normal 0.0-0.7 [facility] Comment on above: Performed By: #### C BC, GFR, ADIFF, BMP, ANEU #### [address] [address] Eosinophils/100 WBC (Bld) 0.0 % Normal 0.0-6.0 [facility] Comment on above: Performed By: #### C BC, GFR, ADIFF, BMP, ANEU #### [address] [address] Lymphocyte, Absolute 1.0 10 3/mcL Normal 0.9-4.3 [facility] Comment on above: Performed By: #### C BC, GFR, ADIFF, BMP, ANEU #### [address] [address] Lymphocytes/100 WBC (Bld) 5.2 % Low 20.0-40.0 [facility] Comment on above: Performed By: #### C BC, GFR, ADIFF, BMP, ANEU #### [address] [address] Monocyte, Absolute 1.7 10 3/mcL High 0.1-1.4 [facility] Comment on above: Performed By: #### C BC, GFR, ADIFF, BMP, ANEU #### [address] [address] Monocytes/100 WBC (Bld) 8.8 % Normal 2.0-13.0 [facility] Comment on above: Performed By: #### C BC, GFR, ADIFF, BMP, ANEU #### [address] [address] Neutrophils/100 WBC (Bld) 86.0 % High 50.0-75.0 [facility] Comment on above: Performed By: #### C BC, GFR, ADIFF, BMP, ANEU #### [address] [address] .GFRon 05-14-2024 GFR Non- >60 [facility]IN Comment on above: Result Comment: GFR Population mean for , Non- Americans Ages 20-29 = 116 mL/min/1.73 sq.m. Ages 30-39 = 107 mL/min/1.73 sq.m. Ages 40-49 = 99 mL/min/1.73 sq.m. Ages 50-59 = 93 mL/min/1.73 sq.m. Ages 60-69 = 85 mL/min/1.73 sq.m. Ages 70+ = 75 mL/min/1.73 sq.m. Chronic Kidney Disease: Less than 60 mL/min/1.73 square meters End Stage Renal Disease: Less than 15 mL/min/1.73 square meters Performed By: #### C BC, GFR, ADIFF, BMP, ANEU ####[place] [id number] GFR >60 [facility] MAIN Comment on above: Result Comment: GFR Population mean for , Non- Americans Ages 20-29 = 116 mL/min/1.73 sq.m. Ages 30-39 = 107 mL/min/1.73 sq.m. Ages 40-49 = 99 mL/min/1.73 sq.m. Ages 50-59 = 93 mL/min/1.73 sq.m. Ages 60-69 = 85 mL/min/1.73 sq.m. Ages 70+ = 75 mL/min/1.73 sq.m. Chronic Kidney Disease: Less than 60 mL/min/1.73 square meters End Stage Renal Disease: Less than 15 mL/min/1.73 square meters Performed By: #### C BC, GFR, ADIFF, BMP, ANEU ####[address] [address] .NEUABSon 05-14-2024 Neutrophil, Absolute 16.3 10 3/mcL High 2.3-8.1 [facility] Comment on above: Performed By: #### C BC, GFR, ADIFF, BMP, ANEU #### [address] [address] BMPon 05-14-2024 BUN/Creatinine Ratio 13.6 ratio Normal 10.0-22.0 [facility] Comment on above: Performed By: #### C BC, GFR, ADIFF, BMP, ANEU ####[address] [address] Calcium [Mass/Vol] 8.6 mg/dL Low 8.7-10.4 [facility] Comment on above: Performed By: #### C BC, GFR, ADIFF, BMP, ANEU ####[address] [address] Chloride [Moles/Vol] 105 mmol/L Normal 98-110 [facility] Comment on above: Performed By: #### C BC, GFR, ADIFF, BMP, ANEU ####[address] [address] CO2 [Moles/Vol] 27 mmol/L Normal 22-32 [facility] Comment on above: Performed By: #### C BC, GFR, ADIFF, BMP, ANEU ####[address] [address] Creatinine [Mass/Vol] 0.88 mg/dL Normal 0.50-1.20 [facility] Comment on above: Result Comment: Test ing performed on [employer] analyzer using enzymatic creatinine methodology. Performed By: #### C BC, GFR, ADIFF, BMP, ANEU ####[address] [address] Electrolyte Balance 7.0 mEq/L Normal 4.0-15.0 [facility] Comment on above: Performed By: #### C BC, GFR, ADIFF, BMP, ANEU ####[address] [address] Glucose [Mass/Vol] 90 mg/dL Normal 70-110 [facility] Comment on above: Performed By: #### C BC, GFR, ADIFF, BMP, ANEU ####[address] [address] Potassium [Moles/Vol] 4.0 mmol/L Normal 3.5-5.0 [facility] Comment on above: Performed By: #### C BC, GFR, ADIFF, BMP, ANEU ####[place] [address] Sodium [Moles/Vol] 139 mmol/L Normal 136-145 [facility] Comment on above: Performed By: #### C BC, GFR, ADIFF, BMP, ANEU ####[place] [address] Urea nitrogen [Mass/Vol] 12.0 mg/dL Normal 8.0-22.0 [facility] Comment on above: Performed By: #### C BC, GFR, ADIFF, BMP, ANEU ####[place] [address] CBCon 05-14-2024 Erythrocyte distribution width (RBC) [Ratio] 13.4 % Normal 11.5-15.5 [facility] Comment on above: Performed By: #### C BC, GFR, ADIFF, BMP, ANEU #### [place] [address] Hematocrit (Bld) [Volume fraction] 29.6 % Low 34.0-46.0 [facility] Comment on above: Performed By: #### C BC, GFR, ADIFF, BMP, ANEU #### [place] [address] Hgb 10.2 G/dL Low 12.0-16.0 [facility] Comment on above: Performed By: #### C BC, GFR, ADIFF, BMP, ANEU #### [place] [address] MCH (RBC) [Entitic mass] 29.9 pg Normal 27.0-33.0 [facility] Comment on above: Performed By: #### C BC, GFR, ADIFF, BMP, ANEU #### [place] [address] MCHC 34.4 G/dL Normal 32.0-36.0 [facility] Comment on above: Performed By: #### C BC, GFR, ADIFF, BMP, ANEU #### [place] [address] MCV (RBC) [Entitic vol] 87.0 fL Normal 80.0-99.0 [facility] Comment on above: Performed By: #### C BC, GFR, ADIFF, BMP, ANEU #### [address] [address] Platelet 139 10 3/mcL Low 150-450 [facility] Comment on above: Performed By: #### C BC, GFR, ADIFF, BMP, ANEU #### [place] [address] Platelet mean volume (Bld) [Entitic vol] 10.4 fL Normal 6.6-10.5 [facility] Comment on above: Performed By: #### C BC, GFR, ADIFF, BMP, ANEU #### [place] [address] RBC 3.40 10 6/mcL Low 4.10-5.30 [facility] Comment on above: Performed By: #### C BC, GFR, ADIFF, BMP, ANEU #### [address] [address] WBC 18.9 10 3/mcL High 4.5-10.8 [facility] Comment on above: Performed By: #### C BC, GFR, ADIFF, BMP, ANEU #### [address] [address] LABORATORYOrdered By: SYSTEM SYSTEM on 05-14-2024 Basophils (Bld) [#/Vol] 0.0 103/mcL Normal 0.0 - 0.3 10^3/mcL AH Workflow SS Basophils/100 WBC (Bld) 0.0 % Normal 0.0 - 2.5 % AH Workflow SS Calcium [Mass/Vol] 8.6 mg/dL Low 8.7 - 10. 4 mg/dL AH ADM SS Chloride [Moles/Vol] 105 mmol/L Normal 98 - 110 mEq/L AH ADM SS CO2 [Moles/Vol] 27 mmol/L Normal 22 - 32 mEq/L AH ADM SS Creatinine [Mass/Vol] 0.88 mg/dL Normal 0.50 - 1.20 mg/dL AH ADM SS Comment on above: Interpretive Data: T esting performed on [employer] analyzer using enzymatic creatinine methodology. Electrolyte Balance 7.0 mEq/L Normal 4.0 - 15 .0 mEq/L AH ADM SS Eosinophils (Bld) [#/Vol] 0.0 103/mcL Normal 0.0 - 0.7 10^3/mcL AH Workflow SS Eosinophils/100 WBC (Bld) 0.0 % Normal 0.0 - 6.0 % AH Workflow SS Erythrocyte distribution width (RBC) [Ratio] 13.4 % Normal 11.5 - 15.5 % Workflow SS GFR/1.73 sq M.predicted among blacks MDRD (S/P/Bld) [Vol rate/Area] ml/min/1.73sqm Invalid Interpretation Code [email or web address] Chemistry S Comment on above: Interpretive Data: GFR Population mean for , Non- Americans Ages 20-29 = 116 mL/min/1.73 sq.m. Ages 30-39 = 107 mL/min/1.73 sq.m. Ages 40-49 = 99 mL/min/1.73 sq.m. Ages 50-59 = 93 mL/min/1.73 sq.m. Ages 60-69 = 85 mL/min/1.73 sq.m. Ages 70+ = 75 mL/min/1.73 sq.m. Chronic Kidney Disease: Less than 60 mL/min/1.73 square meters End Stage Renal Disease: Less than 15 mL/min/1.73 square meters GFR/1.73 sq M.predicted among non-blacks MDRD (S/P/Bld) [Vol rate/Area] ml/min/1.73sqm Invalid Interpretation Code [email or web address] Chemistry S Comment on above: Interpretive Data: GFR Population mean for , Non- Americans Ages 20-29 = 116 mL/min/1.73 sq.m. Ages 30-39 = 107 mL/min/1.73 sq.m. Ages 40-49 = 99 mL/min/1.73 sq.m. Ages 50-59 = 93 mL/min/1.73 sq.m. Ages 60-69 = 85 mL/min/1.73 sq.m. Ages 70+ = 75 mL/min/1.73 sq.m. Chronic Kidney Disease: Less than 60 mL/min/1.73 square meters End Stage Renal Disease: Less than 15 mL/min/1.73 square meters Glucose [Mass/Vol] 90 mg/dL Normal 70 - 110 mg/dL ADM SS Hematocrit (Bld) [Volume fraction] 29.6 % Low 34.0 - 46.0 % AH Workflow SS Hemoglobin (Bld) [Mass/Vol] 10.2 G/dL Low 12.0 - 16.0 G/dL AH Workflow SS Lymphocytes (Bld) [#/Vol] 1.0 103/mcL Normal 0.9 - 4.3 10^3/mcL AH Workflow SS Lymphocytes/100 WBC (Bld) 5.2 % Low 20.0 - 40.0 % Workflow SS MCH (RBC) [Entitic mass] 29.9 pg Normal 27.0 - 33.0 pg Workflow SS MCHC 34.4 G/dL Normal 32.0 - 36.0 G/dL Workflow SS MCV (RBC) [Entitic vol] 87.0 fL Normal 80.0 - 99.0 fL Workflow SS Monocytes (Bld) [#/Vol] 1.7 103/mcL High 0.1 - 1.4 10^3/mcL AH Workflow SS Monocytes/100 WBC (Bld) 8.8 % Normal 2.0 - 13.0 % Workflow SS Neutrophils (Bld) [#/Vol] 16.3 103/mcL High 2.3 - 8.1 10^3/mcL AH Workflow SS Neutrophils/100 WBC (Bld) 86.0 % High 50.0 - 75.0 % Workflow SS Platelet mean volume (Bld) [Entitic vol] 10.4 fL Normal 6.6 - 10.5 fL Workflow SS Platelets (Bld) [#/Vol] 139 103/mcL Low 150 - 450 10^3/mcL AH Workflow SS Potassium [Moles/Vol] 4.0 mmol/L Normal 3.5 - 5.0 mEq/L AH ADM SS RBC (Bld) [#/Vol] 3.40 106/mcL Low 4.10 - 5.3 0 10^6/mcL AH Workflow SS Sodium [Moles/Vol] 139 mmol/L Normal 136 - 145 mEq/L A H ADM SS Urea nitrogen [Mass/Vol] 12.0 mg/dL Normal 8.0 - 22.0 mg/dL ADM SS Urea nitrogen/Creatinine [Mass ratio] 13.6 ratio Normal 10.0 - 22.0 ratio AH ADM SS WBC (Bld) [#/Vol] 18.9 103/mcL High 4.5 - 10.8 10^3/mcL AH Workflow SS US ANESTHESIA BLOCKon 2023 US ANESTHESIA BLOCK ORIGINAL Images acquired, not reported on this accession number. Normal [facility] ABO/Rh (Gel)on 05-13-2024 ABO/Rh Interp Positive Invalid Interpretation Code [facility] Comment on above: Performed By: #### A BSGEL, ABOGEL #### [facility] [address] [place] [id number] ABS (Gel)on 05-13-2024 ABSC Interp (Gel) Negative Normal [facility] Comment on above: Performed By: #### A BSGEL, ABOGEL #### [facility] [address] [place] [id number] LABORATORYOrdered By: Jaden Aguilar on 05-13-2024 Beta HCG ( test) Ql (U) Negative (05/13/24 9:38 AM) [facility] Work Phone: LABORATORYOrdered By: Jaden Haddad on 05-13-2024 ABO and Rh group Nom (Bld) Blood group B Rh(D) positive Invalid Interpretation Code BB Auto SS Blood group antibody screen Ql Negative ABSC (05/13/24 9:37 AM) Normal BB Auto SS .Auto Diffon 04-25-2024 Basophil, Absolute 0.0 10 3/mcL Normal 0.0-0.3 [facility] ([place]) Comment on above: Performed By: #### B MP, CBC, GFR, ADIFF, ANEU #### [address] [address] Basophils/100 WBC (Bld) 0.3 % Normal 0.0-2.5 [facility] ([place]) Comment on above: Performed By: #### B MP, CBC, GFR, ADIFF, ANEU #### [address] [address] Eosinophil, Absolute 0.1 10 3/mcL Normal 0.0-0.7 [facility] ([place]) Comment on above: Performed By: #### B MP, CBC, GFR, ADIFF, ANEU #### [address] [address] Eosinophils/100 WBC (Bld) 2.0 % Normal 0.0-6.0 [facility] ([place]) Comment on above: Performed By: #### B MP, CBC, GFR, ADIFF, ANEU #### [address] [address] Lymphocyte, Absolute 1.3 10 3/mcL Normal 0.9-4.3 [facility] ([place]) Comment on above: Performed By: #### B MP, CBC, GFR, ADIFF, ANEU #### [address] [address] Lymphocytes/100 WBC (Bld) 23.3 % Normal 20.0-40.0 [facility] ([place]) Comment on above: Performed By: #### B MP, CBC, GFR, ADIFF, ANEU #### [address] [address] Monocyte, Absolute 0.5 10 3/mcL Normal 0.1-1.4 [facility] ([place]) Comment on above: Performed By: #### B MP, CBC, GFR, ADIFF, ANEU #### [address] [address] Monocytes/100 WBC (Bld) 8.7 % Normal 2.0-13.0 [facility] ([place]) Comment on above: Performed By: #### B MP, CBC, GFR, ADIFF, ANEU #### [address] [address] Neutrophils/100 WBC (Bld) 65.7 % Normal 50.0-75.0 [facility] ([place]) Comment on above: Performed By: #### B MP, CBC, GFR, ADIFF, ANEU #### [address] [address] .GFRon 04-25-2024 GFR Non- >60 Normal [facility] ([place]) Comment on above: Result Comment: GFR Population mean for , Non- Americans Ages 20-29 = 116 mL/min/1.73 sq.m. Ages 30-39 = 107 mL/min/1.73 sq.m. Ages 40-49 = 99 mL/min/1.73 sq.m. Ages 50-59 = 93 mL/min/1.73 sq.m. Ages 60-69 = 85 mL/min/1.73 sq.m. Ages 70+ = 75 mL/min/1.73 sq.m. Chronic Kidney Disease: Less than 60 mL/min/1.73 square meters End Stage Renal Disease: Less than 15 mL/min/1.73 square meters Performed By: #### B MP, CBC, GFR, ADIFF, ANEU #### [address] [address] GFR >60 Normal [facility] ([place]) Comment on above: Result Comment: GFR Population mean for , Non- Americans Ages 20-29 = 116 mL/min/1.73 sq.m. Ages 30-39 = 107 mL/min/1.73 sq.m. Ages 40-49 = 99 mL/min/1.73 sq.m. Ages 50-59 = 93 mL/min/1.73 sq.m. Ages 60-69 = 85 mL/min/1.73 sq.m. Ages 70+ = 75 mL/min/1.73 sq.m. Chronic Kidney Disease: Less than 60 mL/min/1.73 square meters End Stage Renal Disease: Less than 15 mL/min/1.73 square meters Performed By: #### B MP, CBC, GFR, ADIFF, ANEU #### [address] [address] .NEUABSon 04-25-2024 Neutrophil, Absolute 3.6 10 3/mcL Normal 2.3-8.1 [facility] ([place]) Comment on above: Performed By: #### B MP, CBC, GFR, ADIFF, ANEU #### [address] [address] BMPon 04-25-2024 BUN/Creatinine Ratio 13.6 ratio Normal 10.0-22.0 [facility] ([place] Comment on above: Performed By: #### B MP, CBC, GFR, ADIFF, ANEU #### [address] [address] Calcium [Mass/Vol] 9.4 mg/dL Normal 8.7-10.4 [facility] ([place]) Comment on above: Performed By: #### B MP, CBC, GFR, ADIFF, ANEU #### [address] [address] Chloride [Moles/Vol] 108 mmol/L Normal 98-110 [facility] ([place] Comment on above: Performed By: #### B MP, CBC, GFR, ADIFF, ANEU #### [address] [address] CO2 [Moles/Vol] 28 mmol/L Normal 22-32 [facility] ([place] Comment on above: Performed By: #### B MP, CBC, GFR, ADIFF, ANEU #### [address] [address] Creatinine [Mass/Vol] 0.88 mg/dL Normal 0.50-1.20 [facility] ([place] Comment on above: Result Comment: Test ing performed on Xueersi analyzer using enzymatic creatinine methodology. Performed By: #### B MP, CBC, GFR, ADIFF, ANEU #### [address] [address] Electrolyte Balance 5.0 mEq/L Normal 4.0-15.0 [facility] ([place]) Comment on above: Performed By: #### B MP, CBC, GFR, ADIFF, ANEU #### [address] [address] Glucose [Mass/Vol] 92 mg/dL Normal 70-110 [facility] ([place] Comment on above: Performed By: #### B MP, CBC, GFR, ADIFF, ANEU #### [address] [address] Potassium [Moles/Vol] 4.2 mmol/L Normal 3.5-5.0 [facility] ([place] Comment on above: Performed By: #### B MP, CBC, GFR, ADIFF, ANEU #### [address] [address] Sodium [Moles/Vol] 141 mmol/L Normal 136-145 [facility] ([place] Comment on above: Performed By: #### B MP, CBC, GFR, ADIFF, ANEU #### [place] [address] Urea nitrogen [Mass/Vol] 12.0 mg/dL Normal 8.0-22.0 [facility] ([place] Comment on above: Performed By: #### B MP, CBC, GFR, ADIFF, ANEU #### [place] [address] CBCon 04-25-2024 Erythrocyte distribution width (RBC) [Ratio] 13.4 % Normal 11.5-15.5 [facility] ([place] Comment on above: Performed By: #### B MP, CBC, GFR, ADIFF, ANEU #### [place] [address] Hematocrit (Bld) [Volume fraction] 38.8 % Normal 34.0-46.0 [facility] ([place] Comment on above: Performed By: #### B MP, CBC, GFR, ADIFF, ANEU #### [place] [address] Hgb 13.3 G/dL Normal 12.0-16.0 [facility] ([place] Comment on above: Performed By: #### B MP, CBC, GFR, ADIFF, ANEU #### [place] [address] MCH (RBC) [Entitic mass] 29.6 pg Normal 27.0-33.0 [facility] ([place] Comment on above: Performed By: #### B MP, CBC, GFR, ADIFF, ANEU #### [place] [address] MCHC 34.3 G/dL Normal 32.0-36.0 [facility] ([place] Comment on above: Performed By: #### B MP, CBC, GFR, ADIFF, ANEU #### [place] [address] MCV (RBC) [Entitic vol] 86.4 fL Normal 80.0-99.0 [facility] ([place] Comment on above: Performed By: #### B MP, CBC, GFR, ADIFF, ANEU #### [place] [address] Platelet 160 10 3/mcL Normal 150-450 [facility] ([place] Comment on above: Performed By: #### B MP, CBC, GFR, ADIFF, ANEU #### [place] [address] Platelet mean volume (Bld) [Entitic vol] 9.9 fL Normal 6.6-10.5 [facility] ([place] Comment on above: Performed By: #### B MP, CBC, GFR, ADIFF, ANEU #### [place] [address] RBC 4.50 10 6/mcL Normal 4.10-5.30 [facility] ([place] Comment on above: Performed By: #### B MP, CBC, GFR, ADIFF, ANEU #### [place] [address] WBC 5.5 10 3/mcL Normal 4.5-10.8 [facility] ([place] Comment on above: Performed By: #### B MP, CBC, GFR, ADIFF, ANEU #### [place] [address] LABORATORYOrdered By: SYSTEM SYSTEM on 04-25-2024 Basophils (Bld) [#/Vol] 0.0 103/mcL Normal 0.0 - 0.3 10^3/mcL AH Workflow SS Basophils/100 WBC (Bld) 0.3 % Normal 0.0 - 2.5 % AH Workflow SS Calcium [Mass/Vol] 9.4 mg/dL Normal 8.7 - 10. 4 mg/dL AH ADM SS Chloride [Moles/Vol] 108 mmol/L Normal 98 - 110 mEq/L AH ADM SS CO2 [Moles/Vol] 28 mmol/L Normal 22 - 32 mEq/L AH ADM SS Creatinine [Mass/Vol] 0.88 mg/dL Normal 0.50 - 1.20 mg/dL AH ADM SS Comment on above: Interpretive Data: T esting performed on Xueersi analyzer using enzymatic creatinine methodology. Electrolyte Balance 5.0 mEq/L Normal 4.0 - 15 .0 mEq/L ADM SS Eosinophils (Bld) [#/Vol] 0.1 103/mcL Normal 0.0 - 0.7 10^3/mcL Workflow SS Eosinophils/100 WBC (Bld) 2.0 % Normal 0.0 - 6.0 % Workflow SS Erythrocyte distribution width (RBC) [Ratio] 13.4 % Normal 11.5 - 15.5 % Workflow SS GFR/1.73 sq M.predicted among blacks MDRD (S/P/Bld) [Vol rate/Area] ml/min/1.73sqm Invalid Interpretation Code [email or web address] Chemistry S Comment on above: Interpretive Data: GFR Population mean for , Non- Americans Ages 20-29 = 116 mL/min/1.73 sq.m. Ages 30-39 = 107 mL/min/1.73 sq.m. Ages 40-49 = 99 mL/min/1.73 sq.m. Ages 50-59 = 93 mL/min/1.73 sq.m. Ages 60-69 = 85 mL/min/1.73 sq.m. Ages 70+ = 75 mL/min/1.73 sq.m. Chronic Kidney Disease: Less than 60 mL/min/1.73 square meters End Stage Renal Disease: Less than 15 mL/min/1.73 square meters GFR/1.73 sq M.predicted among non-blacks MDRD (S/P/Bld) [Vol rate/Area] ml/min/1.73sqm Invalid Interpretation Code [email or web address] Chemistry S Comment on above: Interpretive Data: GFR Population mean for , Non- Americans Ages 20-29 = 116 mL/min/1.73 sq.m. Ages 30-39 = 107 mL/min/1.73 sq.m. Ages 40-49 = 99 mL/min/1.73 sq.m. Ages 50-59 = 93 mL/min/1.73 sq.m. Ages 60-69 = 85 mL/min/1.73 sq.m. Ages 70+ = 75 mL/min/1.73 sq.m. Chronic Kidney Disease: Less than 60 mL/min/1.73 square meters End Stage Renal Disease: Less than 15 mL/min/1.73 square meters Glucose [Mass/Vol] 92 mg/dL Normal 70 - 110 mg/dL AH ADM SS Hematocrit (Bld) [Volume fraction] 38.8 % Normal 34.0 - 46.0 % AH Workflow SS Hemoglobin (Bld) [Mass/Vol] 13.3 G/dL Normal 12.0 - 16.0 G/dL AH Workflow SS Lymphocytes (Bld) [#/Vol] 1.3 103/mcL Normal 0.9 - 4.3 10^3/mcL AH Workflow SS Lymphocytes/100 WBC (Bld) 23.3 % Normal 20.0 - 40.0 % AH Workflow SS MCH (RBC) [Entitic mass] 29.6 pg Normal 27.0 - 33.0 pg AH Workflow SS MCHC 34.3 G/dL Normal 32.0 - 36.0 G/dL AH Workflow SS MCV (RBC) [Entitic vol] 86.4 fL Normal 80.0 - 99.0 fL AH Workflow SS Monocytes (Bld) [#/Vol] 0.5 103/mcL Normal 0.1 - 1.4 10^3/mcL AH Workflow SS Monocytes/100 WBC (Bld) 8.7 % Normal 2.0 - 13.0 % AH Workflow SS Neutrophils (Bld) [#/Vol] 3.6 103/mcL Normal 2.3 - 8.1 10^3/mcL AH Workflow SS Neutrophils/100 WBC (Bld) 65.7 % Normal 50.0 - 75.0 % AH Workflow SS Platelet mean volume (Bld) [Entitic vol] 9.9 fL Normal 6.6 - 10.5 fL AH Workflow SS Platelets (Bld) [#/Vol] 160 103/mcL Normal 150 - 450 10^3/mcL AH Workflow SS Potassium [Moles/Vol] 4.2 mmol/L Normal 3.5 - 5.0 mEq/L AH ADM SS RBC (Bld) [#/Vol] 4.50 106/mcL Normal 4.10 - 5.3 0 10^6/mcL AH Workflow SS Sodium [Moles/Vol] 141 mmol/L Normal 136 - 145 mEq/L A H ADM SS Urea nitrogen [Mass/Vol] 12.0 mg/dL Normal 8.0 - 22.0 mg/dL ADM SS Urea nitrogen/Creatinine [Mass ratio] 13.6 ratio Normal 10.0 - 22.0 ratio AH ADM SS WBC (Bld) [#/Vol] 5.5 103/mcL Normal 4.5 - 10.8 10^3/mcL AH Workflow SS Danette 12-27-2023 CNPN Telephone (OBGYWM) -------- ROBINBUTCH Farley ([id number]) 1980 F Date Time Provider Department 12/27/23 DEBORAH RASMUSSEN OBGYWM During your visit today, we recorded the following information about you: Deborah Rasmussen APRN.CNM 12/27/2023 10:05 PM Signed Patient referral placed for urogyn to discuss hysterectomy and possible surgical intervention for cystocele. She would like referral faxed to in [place] due to insurance. Office . Can you please send referral information to their office and webme message patient when it is complete. Thank you, Deborah Rasmussen APRN.CNM Allergies As of Date: 12/27/2023 (No Known Allergies) Date Reviewed: 12/26/2023 Reviewed by: John Nelson MA - Fully Assessed Prescriptions as of 12/28/2023 - keTORolac (TORADOL) 10 mg tablet Take 1 tablet by mouth every 6 hours as needed. - levonorgestrel (MIRENA) 20 mcg/24 hours (8 yrs) 52 mg IUD 1 Each by INTRAUTERINE route as directed. - rimegepant (NURTEC ODT) 75 mg disintegrating tablet Take 1 tablet by mouth as needed (for migriane pain. Max dose is 1 tab in 24 hrs.). - levonorgestrel (MIRENA) 20 mcg/24 hours (8 yrs) 52 mg IUD 1 Each by INTRAUTERINE route as directed. - cholecalciferol (VITAMIN D-3) 5,000 unit tab Take 1 tablet by mouth once daily. - valACYclovir (VALTREX) 500 mg tablet Take 1 tablet by mouth once daily. - clobetasol (TEMOVATE) 0.05 % ointment Apply thin layer to affected area once a day x 4wks, then every other day for 4 wks, then twice weekly for 4 weeks then PRN for symptoms - cholestyramine-sucrose (QUESTRAN) 4 gram powder Take 4 g by mouth twice daily with meals. Problem List As Of Date: 12/27/2023 (None) Encounter Status:Closed by EDUARDA ALLAN on 12/28/23 Normal [facility] SURGICAL PATHOLOGYOrdered By : Perla Vu on 12-27-2023 Case Report Surgical Pathology Report Case: [id number] Authorizing Provider: Deborah Rasmussen APRN.CNM Collected: 12/26/2023 10:00 AM Ordering Location: OB/Gynecology Received: 12/26/2023 11:53 AM Pathologist: Perla Vu MD Specimen: Endometrium, Biopsy [facility] Work Phone: Clinical History v5luiFAfZSEzb1oaOZId bGFu BjYtRhKvZwCtNls5QIUoaqU2 Vdy0RQEsPNrqkX7oTQHcJIaq M2jrvtPhaPIhUYSjXOe2zR1z bTjniK8lGiHvEiDeZKCGbmWc vPE7qceatYRmh2p4wZfhUE7a t01erSFkn56cIBHlosW2 [facility] Work Phone: FINAL DIAGNOSIS v5qeeOTkDJCmcREdBHUc NVxh geRsQQBtrJOyW1LlgceaPVvf VQ8wLT7lgVxykVDgjDNcSUTm VxKpg2yfy148wMUij1rwHPQK itrwzMw7aNhrY57id1I5Pfba A74gdWHnVXZ8EXHjTQIzsMGj ZEAmHOF9VYScmQQrX6huNXGn PP8iykcdJMrgFPhqOSNuzZN9 BNZokUAqI6JfYLCaUQrvHIJo rbu5BwPqBg4puBAivAjjYYbm VKDeMMOxWZdgMOXxYiXdQY6m OZAnQR2bWYWnbKTcVLAczD0o p1a1FBPhuqHeXKRaxRyxy3jo NFVuNMerUO61bmKnCrVbOA7u X30vQP7jw21leTMwnK0ai7f2 kMEnpDXuB4IuNIAtemKyi5Yp zpBuk8o7uQUhaD5kQH2ysBOk zTPsT5TrgGwaZGMfKrPxgT8i IFxwYXJ9 [facility] Work Phone: Gross Description b9mvqNQjFKDxdBHBQUO7 MDJc CH1gcDhyvNn1oXtrHSWbkjY4 cEPiVQgay9qdQPG5n1pzdjSN GqooIUXqRM3dBGdsGCJnCW4u ZmUwXGRlZmYxXHBhcGVydzEy LhXzLVCatLWekVT4PPZwTG2m zzmrJKgvAXdlFJDjltE8ZRGu cASvK3MvHVPyAK1tzrcdROW6 MSFEBsyzIt5aqPIthZxfQtQm WzRhPQMqKKEiERQxy3pnbqKD qtcmeDp7eR4MNEBrX7FfBQ3Z n0lcCIFzdOZhVCJ3REltl7hk IDydPUZ7VTXkDYKvUETfSJ3W FsIjJHXsAeI9VZC0VsO6WXp6 WQVHBOOeGPP3XVH4CVFkOJy8 OTkgXFxuaCBcXHQgMSBcXGZs QYtrxlD6p7rmSSIhqJQeWXX1 TOyvg7lqLXmwREJ7PJFdMtEl OBLeBJ2WKkRiRPEzUtI2OGS0 WeZ4ZTf5ZKWTAtPkUiXwGBF6 Cjj0LbBqZHs2YBo9RDiYWeMg YgttHGV2MNpmKDU4UFA0XMWw XHQgMiBcXHNzIDMgXFxmbCBc ZE3rpMfzJVJiUS3YIRFoOQsk OEVvRuPzBD7nYO8ph62emQIt fQ1iDENgd9DwbLmkdJEuvXor YXIgDQpccGFyZCANClxwbGFp blxsdHJjaFxmczIyXGVwaWNO GLF1ID7rRMQNMzwtaJDsBYVs DQpcZnMyMCBSZWNlaXZlZCBp lnFdx2JfWEacxzQeciBhsFFg qOedlLUdkMFmWKJbHJNgk6kq FPIrp4E5QXSsOPJgKPV4IKMm Y67nyzNeRV4lBCMqj6Z0MWIc NZ1vrAWvTYsubPnixZJufV9m xZDzbOL3KHNyHEktRUrcwdNb SATfovayiF7sWg4yDLebCZ22 YTmsKN8kRJPrMcJKv2ObtYb4 CSG5Xe3jhTVmOGKgctQyhsZd D3Ufr7J7bXSyFHexNXJrHAqi qMEtLV0YYFIoNZN5BZgfGCJj MjQgNzozOCBQTVxwYXIgDQpc nDDkPH4QOXKlTlIkBMVbT0fq SOExMT4EN0Chj9JdRZqxuFtl NIOmb66tuKVsJj9eeKGuGVI5 IENsZXZlbGFuZCBDbGluaWMs IJg6XLUwJMFodGavXBV1CT9y SIKaSBXolUNtPVyvV4yqVATi OTUNClxlcGljTmVzdERvYzB7 UPTxqNSdENW8WR8ikUloVCVg Z3XmD0DvibO0VTRtbxGXTyqm MEVwCC5QDFSnGbPlWNy7 [facility] Work Phone: Performing Lab g2kvpMPoIGIzpTYvAwYh MDAw UQCps7iqXEZlgWFeRtWtWcEa UxPoMpykiTMhOVJdYpYrh7vg a527vKLta5uwOSBxChA8gGSf PJFblIZoJ979ZDVfXKzir5cw u9NoZLGcoQAtj7S7UJUXgjuw eAc6dCzkC62gz4E2EuhzT2vr PRRiZTCbS3BbTU7zIWBkVdb2 MJX2TWT6MKPiABJyY1XbIW0g WHSewBVaQRt1r8iuaEebLXDd IKE4l8ykWQibgqUfOJ6fnp9a zEz5d5eadqMcWLYdGTJdrFFA KKPxC7RypGyqSm2lhUi1qPcj QteuAED2Tua2ZO9lra37uzh3 iZdoWXTgwkgvJxF8VXxvZDDe rtxeMQv3KPugNMEhqUL4LBUo kLIaH8XfAHbaWV2nxwp8FRC3 WTioSWZaZzA6NQDpaGPkAHOn zJmgHTjdb491NIZ0QiVfCL5x I1Gfn5M5mQ2iiQAvVRGngIMx QpPzFWYuaf8jqBZdFPnwr1St OVJ9rkI3wYBcwYBbODCkSQ60 Bjzum8EoViusk6KlK30ihMK0 ROrzc9iqIR1bLvE1ihMsYNny b6gaiV5yYfC8WVohDG1aXP5m DYVaqJ5xlpwiBYPeZbRzjptx SLAlxIdgpqUsDc1haUmiTDA1 ZZfkB6nowW1gGjF9SWvhE9sf yZ8kEUm2HOtxtWR3DRBryW7m HG0qvloes8sjEJdwSKakREQx jbE3brYhUICpzMSqV8FntC4c PXYdJQ5tnqntx0kkCAK1NRhz WVOaCEQ8DcGjIKXea5Ogdvb7 IvMla3RsdTLxYUmxG93ol344 DMLszrBwG3fawKUgomltbKKn dupvPAiyhkW3ISVhYVXjUUoo XGYxXGZzMjJcbGFuZzEwMzNc aGljaFxmMVxkYmNoXGYxXGxv D8smOaHiErGrClQVeUKbku2x cZbpWAgyaGMtzNVegEV2xX9m IADyiaCgvg0xJHSugRJTrXR6 LAaaueLeE0iilukgLBL5KPLq LEK2H8mpOQKBckYuTSOyECSe gFEoMFTDGVB6LFH7EJEuDOCN UIXzAUU1OBO6CEJyHHZppMBq XHBhclxwYXJkXHBsYWluXGYw ZLUcXxCjgEfulH1uAdFlWuGn YmhdYZ7pTSUkW3kwnUKtUKLk KYDhA1jlUoOevI0nuBvmQHjy ZjJcZnMyMlxsdHJjaCBMYWJv giZ1e8Y1FRuaxRGblsetHGtz agFbKEqvwpyiUXMcMKorJ7qn IeSrXPCufVfbCTscb5PsYFSy UNMpLtCdZObnRNZ6b0D6SPok bBKfkoRFXiULPC0uoPLxolxb CZ2FLfnpAWF6 [facility] Work Phone: [facility] Work Phone: 25(OH)D3 [facility] 2023 25-hydroxyvitamin D3 [Mass/Vol] 25.4 ng/mL Low 31.0-80.0 [facility] Comment on above: Order Comment: Speci men Type: BLOOD SPECIMEN Ordering Facility: [facility] Address: [address] [place] [address] Result Comment: Clas sification of 25 OH Vitamin D status: Deficiency/Insufficiency: < or = 30 ng/ml. Sufficiency/Optimal Levels: 31-80 ng/mL Toxicity: > 100 ng/mL. Test performed by chemiluminescent immunoassay. Performed By: #### 1 [id number] #### [facility] CLIA [id number] [address] [place] [address] [place] CBC W Auto Differential pane l (Bld)on 12-26-2023 Basophils (Bld) [#/Vol] 10*3/uL Normal <0.11 [facility] Comment on above: Order Comment: Speci men Type: SWAB Ordering Facility: [facility] Address: [address] [place] [address] Performed By: #### C VTV, BVAMP #### [facility] CLIA [id number] [address] [place] [address] [place] Basophils/100 WBC (Bld) 0.4 % Normal [facility] Comment on above: Order Comment: Speci men Type: SWAB Ordering Facility: [facility] Address: [address] [place] [address] Performed By: #### C VTV, BVAMP #### [facility] CLIA [id number] [address] [place] [address] [place] Differential cell count method Nom (Bld) Auto Normal [facility] Comment on above: Order Comment: Speci men Type: SWAB Ordering Facility: [facility] Address: [address] [place] [address] Performed By: #### C VTV, BVAMP #### [facility] CLIA [id number] [address] [place] [address] [place] Eosinophils (Bld) [#/Vol] 0.20 10*3/uL Normal <0.46 [facility] Comment on above: Order Comment: Speci men Type: SWAB Ordering Facility: [facility] Address: [address] [place] [address] Performed By: #### C VTV, BVAMP #### [facility] CLIA [id number] [address] [place] [address] [place] Eosinophils/100 WBC (Bld) 4.4 % Normal [facility] Comment on above: Order Comment: Speci men Type: SWAB Ordering Facility: [facility] Address: [address] [place] [address] Performed By: #### C VTV, BVAMP #### [facility] CLIA [id number] [address] [place] [address] [place] Erythrocyte distribution width (RBC) [Ratio] 13.1 % Normal 11.5-15.0 [facility] Comment on above: Order Comment: Speci men Type: SWAB Ordering Facility: [facility] Address: [address] [place] [address] Performed By: #### C VTV, BVAMP #### [facility] CLIA [id number] [address] [place] [address] [place] Hematocrit (Bld) [Volume fraction] 37.3 % Normal 36.0-46.0 [facility] Comment on above: Order Comment: Speci men Type: SWAB Ordering Facility: [facility] Address: [address] [place] [address] Performed By: #### C VTV, BVAMP #### [facility] CLIA [id number] [address] [place] [address] [place] Hemoglobin (Bld) [Mass/Vol] 12.5 g/dL Normal 11.5-15.5 [facility] Comment on above: Order Comment: Speci men Type: SWAB Ordering Facility: [facility] Address: [address] [place] [address] Performed By: #### C VTV, BVAMP #### [facility] CLIA [id number] [address] [place] [address] [place] Immature granulocytes (Bld) [#/Vol] 10*3/uL Normal <0.10 [facility] Comment on above: Order Comment: Speci men Type: SWAB Ordering Facility: [facility] Address: [address] [place] [address] Performed By: #### C VTV, BVAMP #### [facility] CLIA [id number] [address] [place] [address] [place] Immature granulocytes/100 WBC (Bld) 0.2 % Normal [facility] Comment on above: Order Comment: Speci men Type: SWAB Ordering Facility: [facility] Address: [address] [place] [address] Performed By: #### C VTV, BVAMP #### [facility] CLIA [id number] [address] [place] [address] [place] Lymphocytes (Bld) [#/Vol] 1.25 10*3/uL Normal 1.00-4.00 [facility] Comment on above: Order Comment: Speci men Type: SWAB Ordering Facility: [facility] Address: [address] [place] [address] Performed By: #### C VTV, BVAMP #### [facility] CLIA [id number] [address] [place] [address] [place] Lymphocytes/100 WBC (Bld) 27.6 % Normal [facility] Comment on above: Order Comment: Speci men Type: SWAB Ordering Facility: [facility] Address: [address] [place] [address] Performed By: #### C VTV, BVAMP #### [facility] CLIA [id number] [address] [place] [address] [place] MCH (RBC) [Entitic mass] 29.0 pg Normal 26.0-34.0 [facility] Comment on above: Order Comment: Speci men Type: SWAB Ordering Facility: [facility] Address: [address] [place] [address] Performed By: #### C VTV, BVAMP #### [facility] CLIA [id number] [address] [place] [address] [place] MCHC (RBC) [Mass/Vol] 33.5 g/dL Normal 30.5-36.0 [facility] Comment on above: Order Comment: Speci men Type: SWAB Ordering Facility: [facility] Address: [address] [place] [address] Performed By: #### C VTV, BVAMP #### [facility] CLIA [id number] [address] [place] [address] [place] MCV (RBC) [Entitic vol] 86.5 fL Normal 80.0-100.0 [facility] Comment on above: Order Comment: Speci men Type: SWAB Ordering Facility: [facility] Address: [address] [place] [address] Performed By: #### C VTV, BVAMP #### [facility] CLIA [id number] [address] [place] [address] [place] Monocytes (Bld) [#/Vol] 0.40 10*3/uL Normal <0.87 [facility] Comment on above: Order Comment: Speci men Type: SWAB Ordering Facility: [facility] Address: [address] [place] [address] Performed By: #### C VTV, BVAMP #### [facility] CLIA [id number] [address] [place] [address] [place] Monocytes/100 WBC (Bld) 8.8 % Normal [facility] Comment on above: Order Comment: Speci men Type: SWAB Ordering Facility: [facility] Address: [address] [place] [address] Performed By: #### C VTV, BVAMP #### [facility] CLIA [id number] [address] [place] [address] [place] Neutrophils (Bld) [#/Vol] 2.65 10*3/uL Normal 1.45-7.50 [facility] Comment on above: Order Comment: Speci men Type: SWAB Ordering Facility: [facility] Address: [address] [place] [address] Performed By: #### C VTV, BVAMP #### [facility] CLIA [id number] [address] [place] [address] [place] Neutrophils/100 WBC (Bld) 58.6 % Normal [facility] Comment on above: Order Comment: Speci men Type: SWAB Ordering Facility: [facility] Address: [address] [place] [address] Performed By: #### C VTV, BVAMP #### [facility] CLIA [id number] [address] [place] [address] [place] Nucleated RBC (Bld) [#/Vol] 10*3/uL Normal <0.01 [facility] Comment on above: Order Comment: Speci men Type: SWAB Ordering Facility: [facility] Address: [address] [place] [address] Performed By: #### C VTV, BVAMP #### [facility] CLIA [id number] [address] [place] [address] [place] Nucleated RBC/100 WBC (Bld) [Ratio] 0.0 /100 WBC Normal [facility] Comment on above: Order Comment: Speci men Type: SWAB Ordering Facility: [facility] Address: [address] [place] [address] Performed By: #### C VTV, BVAMP #### [facility] CLIA [id number] [address] [place] [address] [place] Platelet mean volume (Bld) [Entitic vol] 11.4 fL Normal 9.0-12.7 [facility] Comment on above: Order Comment: Speci men Type: SWAB Ordering Facility: [facility] Address: [address] [place] [address] Performed By: #### C VTV, BVAMP #### [facility] CLIA [id number] [address] [place] [address] [place] Platelets (Bld) [#/Vol] 159 10*3/uL Normal 150-400 [facility] Comment on above: Order Comment: Speci men Type: SWAB Ordering Facility: [facility] Address: [address] [place] [address] Performed By: #### C VTV, BVAMP #### [facility] CLIA [id number] [address] [place] [address] [place] RBC (Bld) [#/Vol] 4.31 10*6/uL Normal 3.90-5.20 [facility] Comment on above: Order Comment: Speci men Type: SWAB Ordering Facility: [facility] Address: [address] [place] [address] Performed By: #### C VTV, BVAMP #### [facility] CLIA [id number] [address] [place] [address] [place] WBC (Bld) [#/Vol] 4.53 10*3/uL Normal 3.70-11.00 [facility] Comment on above: Order Comment: Speci men Type: SWAB Ordering Facility: [facility] Address: [address] [place] [address] Performed By: #### C VTV, BVAMP #### [facility] CLIA [id number] [address] [place] [address] [place] CNOVon 12-26-2023 CNOV Office Visit (OBGYWM ) -------- BUTCH KELLY ([id number]) 1980 F Date Time Provider Department 12/26/23 9:15 AM DEBORAH RASMUSSEN During your visit today, we recorded the following information about you: Blood pressure Weight 120/72 90.5 kg Deborah Rasmussen APRN.CNM 12/27/2023 10:02 PM Signed Butch is a 43 year old who presents today for an endometrial biopsy for heavy and irregular menses. test: negative [employer] / SAFETY CHECKLIST Procedure to be Performed: Endometrial biopsy Sign In: A Moment of CARE was completed. Personnel directly involved with the procedure wore the appropriate PPE (Personal Protective Equipment). No special equipment needed. Patient/Surrogate Stated/Verified: PATIENT VERIFIED(optional for EMERGENT procedures): Patient name, Date of , Relevant allergies, and The intended procedure Time Out Communication: Intended patient and procedure match the source documents. Consent documented and matches the intended procedure. Relevant labs, photos, and/or imaging studies have been reviewed. Correct side/site marked and visible. No medications required for procedure. No fire risk assessment and interventions applicable. No implant(s) inserted. Sign Out: SIGN OUT (optional for EMERGENT procedures): All specimen containers correctly labeled. All instruments, equipment, possible retained foreign bodies accounted for. Post-procedure follow-up management communicated and Plan of Care Visit completed when applicable. PROCEDURE: EXTERNAL GENITALIA: Normal in appearance without lesions VAGINA: Normal in appearance without lesions BIOPSY: Speculum placed into the vagina with excellent visualization of the cervix. Cervix cleaned with betadine. Anterior lip of cervix grasped with single toothed tenaculum. Pipelle inserted into the uterus without difficulty and endometrial biopsy obtained. Specimen labeled and sent to pathology. Hemostasis achieved. Procedure Summary: Patient tolerated procedure well. ASSESSMENT: heavy menses PLAN: Specimens labeled and sent to Pathology. Will notify patient of results in 1-2 weeks. Reviewed ultrasound report and referral to uro gynecology to discuss surgical management. KATHI Terrazas Morgan, MA 12/26/2023 9:03 AM Signed YOUR RECOVERY After your biopsy you may have: Vaginal bleeding (less than a normal menstrual period) Mild cramping Do NOT put anything in the vagina for 1 week after your endometrial biopsy. This includes: tampons douches and refraining from having sexual intercourse If you have any discomfort, you may take an over the counter pain medication (motrin, advil, ibuprofen, tylenol, etc). If this does not relieve your discomfort, contact the office. It is okay to wear a sanitary pad until the discharge and spotting stops. RISKS Although problems seldom occur with endometrial biopsies, there can be some complications. You may feel faint during and shortly after the procedure as well as have some bleeding after the procedure. There is also a risk of infection after the procedure. These complications are rare and can be easily treated. You should contact you doctor is you have any of the following: Heavy bleeding (more than your normal period) Bleeding with clots Severe abdominal pain Fever (more than 100.4F) Foul smelling vaginal discharge RESULTS We will have the results of your biopsy in 1-2 weeks. If you do not hear the results of your biopsy after 2 weeks, please contact the office for the results. If you have any additional questions or concerns please do not hesitate to contact the office. Referring Provider: DEBORAH RASMUSSEN [[id number]] Allergies As of Date: 12/26/2023 (No Known Allergies) Date Reviewed: 12/26/2023 Reviewed by: John Nelson MA - Fully Assessed Reason for Visit: Endometrial Biopsy [7501] Primary Visit Diagnosis:Menorrhagia with regular cycle [N92.0] Other Visit Diagnoses:Pelvic pain in female [R10.2] Endometrioma [N80.129] Endometrial polyp [N84.0] Cystocele, midline [N81.11] Rectocele [N81.6] Order(s):ENDOMETRIAL BIOPSY [[id number]] Order #: [id number] SURGICAL PATHOLOGY [[id number]] Order #: [id number]. #:[id number] UA DIP,URINE HCG (POC) [[id number]] Order #: [id number]. #:[id number] [id number] keTORolac (TORADOL) 10 mg tabletTake 1 tablet by mouth every 6 hours as needed.Disp: 30 tabletRfl: 0 CONSULT TO URO GYNECOLOGY [[id number]] Order #: [id number]: 1 FUTURE Prescriptions as of 12/27/2023 - keTORolac (TORADOL) 10 mg tablet Take 1 tablet by mouth every 6 hours as needed. - levonorgestrel (MIRENA) 20 mcg/24 hours (8 yrs) 52 mg IUD 1 Each by INTRAUTERINE route as directed. - rimegepant (NURTEC ODT) 75 mg disintegrating tablet Take 1 tablet by mouth as needed (for migriane pain. Max dose is 1 tab in 2 (more content not included)... Normal [facility] Comprehensive metabolic 2000 panelon 12-26-2023 Albumin [Mass/Vol] 4.1 g/dL Normal 3.9-4.9 [facility] Comment on above: Order Comment: Speci men Type: SWAB Ordering Facility: [facility] Address: [address] [place] [address] Performed By: #### C VTV, BVAMP #### [facility] CLIA [id number] [address] [place] [address] [place] ALP [Catalytic activity/Vol] 58 U/L Normal 34-123 [facility] Comment on above: Order Comment: Speci men Type: SWAB Ordering Facility: [facility] Address: [address] [place] [address] Performed By: #### C VTV, BVAMP #### [facility] CLIA [id number] [address] [place] [address] [place] ALT [Catalytic activity/Vol] 33 U/L Normal 7-38 [facility] Comment on above: Order Comment: Speci men Type: SWAB Ordering Facility: [facility] Address: [address] [place] [address] Performed By: #### C VTV, BVAMP #### [facility] CLIA [id number] [address] [place] [address] [place] Anion gap [Moles/Vol] 6 mmol/L Low 9-18 [facility] Comment on above: Order Comment: Speci men Type: SWAB Ordering Facility: [facility] Address: [address] [place] [address] Performed By: #### C VTV, BVAMP #### [facility] CLIA [id number] [address] [place] [address] [place] AST [Catalytic activity/Vol] 23 U/L Normal 13-35 [facility] Comment on above: Order Comment: Speci men Type: SWAB Ordering Facility: [facility] Address: [address] [place] [address] Performed By: #### C VTV, BVAMP #### [facility] CLIA [id number] [address] [place] [address] [place] Bilirubin [Mass/Vol] 0.5 mg/dL Normal 0.2-1.3 [facility] Comment on above: Order Comment: Speci men Type: SWAB Ordering Facility: [facility] Address: [address] [place] [address] Performed By: #### C VTV, BVAMP #### [facility] CLIA [id number] [address] [place] [address] [place] Calcium [Mass/Vol] 9.1 mg/dL Normal 8.5-10.2 [facility] Comment on above: Order Comment: Speci men Type: SWAB Ordering Facility: [facility] Address: [address] [place] [address] Performed By: #### C VTV, BVAMP #### [facility] CLIA [id number] [address] [place] [address] [place] Chloride [Moles/Vol] 105 mmol/L Normal 97-105 [facility] Comment on above: Order Comment: Speci men Type: SWAB Ordering Facility: [facility] Address: [address] [place] [address] Performed By: #### C VTV, BVAMP #### [facility] CLIA [id number] [address] [place] [address] [place] CO2 [Moles/Vol] 27 mmol/L Normal 22-30 [facility] Comment on above: Order Comment: Speci men Type: SWAB Ordering Facility: [facility] Address: [address] [place] [address] Performed By: #### C VTV, BVAMP #### [facility] CLIA [id number] [address] [place] [address] [place] Creatinine [Mass/Vol] 0.81 mg/dL Normal 0.58-0.96 [facility] Comment on above: Order Comment: Speci men Type: SWAB Ordering Facility: [facility] Address: [address] [place] [address] Performed By: #### C VTV, BVAMP #### [facility] CLIA [id number] [address] [place] [address] [place] Creatinine and Glomerular filtration rate.predicted panel (S/P/Bld) 93 mL/min/1.73m??? Normal >=60 [facility] Comment on above: Order Comment: Speci men Type: SWAB Ordering Facility: [facility] Address: [address] [place] [address] Result Comment: Merry mated Glomerular Filtration Rate (eGFR) is calculated using the 2020 CKD-EPI creatinine equation. This equation utilizes serum creatinine, sex, and age as parameters. The creatinine assay has traceable calibration to isotope dilution-mass spectrometry. Refer to KDIGO guidelines for clinical interpretation. In patients with unstable renal function, e.g. those with acute kidney injury, the eGFR may not accurately reflect actual GFR. Performed By: #### C VTV, BVAMP #### [facility] CLIA [id number] [address] [place] [address] [place] Glucose [Mass/Vol] 91 mg/dL Normal 74-99 [facility] Comment on above: Order Comment: Speci men Type: SWAB Ordering Facility: [facility] Address: [address] [place] [address] Result Comment: The [place] Diabetes Association (ADA) provides guidance for cutoff values for fasting glucose and random glucose. The ADA defines fasting as no caloric intake for at least 8 hours. Fasting plasma glucose results between 100 to 125 mg/dL indicate increased risk for diabetes (prediabetes). Fasting plasma glucose results greater than or equal to 126 mg/dL meet the criteria for diagnosis of diabetes. In the absence of unequivocal hyperglycemia, results should be confirmed by repeat testing. In a patient with classic symptoms of hyperglycemia or hyperglycemic crisis, random plasma glucose results greater than or equal to 200 mg/dL meet the criteria for diagnosis of diabetes. Reference: Standards of Medical Care in Diabetes 2016, [place] Diabetes Association. Diabetes Care. 2016.39(Suppl 1). Performed By: #### C VTV, BVAMP #### [facility] CLIA [id number] [address] [place] [address] [place] Potassium [Moles/Vol] 3.7 mmol/L Normal 3.7-5.1 [facility] Comment on above: Order Comment: Speci men Type: SWAB Ordering Facility: [facility] Address: [address] [place] [address] Performed By: #### C VTV, BVAMP #### [facility] CLIA [id number] [address] [place] [address] [place] Protein [Mass/Vol] 7.0 g/dL Normal 6.3-8.0 [facility] Comment on above: Order Comment: Speci men Type: SWAB Ordering Facility: [facility] Address: [address] [place] [address] Performed By: #### C VTV, BVAMP #### [facility] CLIA [id number] [address] [place] [address] [place] Sodium [Moles/Vol] 138 mmol/L Normal 136-144 [facility] Comment on above: Order Comment: Speci men Type: SWAB Ordering Facility: [facility] Address: [address] [place] [address] Performed By: #### C VTV, BVAMP #### [facility] CLIA [id number] [address] [place] [address] [place] Urea nitrogen [Mass/Vol] 14 mg/dL Normal 7-21 [facility] Comment on above: Order Comment: Speci men Type: SWAB Ordering Facility: [facility] Address: [address] [place] [address] Performed By: #### C VTV, BVAMP #### [facility] CLIA [id number] [address] [place] [address] [place] DHEA-S BLDon 12-26-2023 DHEA-S [Mass/Vol] 79.2 ug/dL Normal 60.9-337.0 [facility] Comment on above: Order Comment: Speci men Type: BLOOD SPECIMEN Ordering Facility: [facility] Address: [address] [place] [address] Result Comment: Refe rence ranges are age and gender specific. For additional information, reference range tables can be found in the laboratory test directory. The normal values are based on the following source: Dehydroepiandrosterone sulfate (DHEA S) [package insert V 17.0 Mexican]. [facility], [place], [place]: March 2013. Performed By: #### 2 4331-1 #### [facility] CLIA [id number] [address] [place] [address] [place] [facility] CLIA [id number] [address] [place] [address] [place] #### 3016-3, DHEAS #### [facility] CLIA [id number] [address] [place] [address] [place] HYDROXYPROGESTERONE-17on 17-HYDROXYPROGESTER ONE QUANTITATIVE BY HPLC-MS/MS, SERUM OR PLASMA 12.23 ng/dL Normal <=206.00 [facility] Comment on above: Order Comment: Speci men Type: SWAB Ordering Facility: [facility] Address: [address] [place] [address] Result Comment: INTERPRETIVE INFORMATION for 17-Hydroxyprogesterone in females: Follicular 15 to 70 ng/dL Luteal 35 to 290 ng/dL REFERENCE INTERVAL: 17-Hydroxyprogesterone Qnt, HPLC-MS/MS Access complete set of age- and/or gender-specific reference intervals for this test in the [facility] Test Directory ([employer]). This test was developed and its performance characteristics determined by [facility]. It has not been cleared or approved by the US Food and Drug Administration. This test was performed in a CLIA certified laboratory and is intended for clinical purposes. Performed By: [facility] [address] [place] [address] Nuclear Radiation Engineer: Mateo Jane MD, PhD CLIA Number: [id number] Performed By: #### C VTV, BVAMP #### [facility] CLIA [id number] [address] [place] [address] [place] HbA1c (Bld)on 12-26-2023 Average glucose Estimated from glycated hemoglobin (Bld) [Mass/Vol] 100 mg/dL Normal [facility] Comment on above: Order Comment: Speci men Type: SWAB Ordering Facility: [facility] Address: [address] [place] [address] Result Comment: eAG: (Estimated average glucose) is a calculated value from HgbA1c and is roofing sales representative of the average blood glucose level in the last 2-3 month period. Performed By: #### C VTV, BVAMP #### [facility] CLIA [id number] [address] [place] [address] [place] HbA1c (Bld) [Mass fraction] 5.1 % Normal 4.3-5.6 [facility] Comment on above: Order Comment: Speci men Type: SWAB Ordering Facility: [facility] Address: [address] [place] [address] Result Comment: [place] Diabetes Association guidelines indicate that patients with HgbA1c in the range 5.7-6.4% are at increased risk for development of diabetes, and intervention by lifestyle modification may be beneficial. HgbA1c greater or equal to 6.5% is considered diagnostic of diabetes. Performed By: #### C VTV, BVAMP #### [facility] CLIA [id number] [address] [place] [address] [place] Lipid 1996 panelon 4 Cholesterol [Mass/Vol] 170 mg/dL Normal <200 [facility] Comment on above: Order Comment: Speci men Type: BLOOD SPECIMEN Ordering Facility: [facility] Address: [address] [place] [address] Result Comment: <200 mg/dL, Desirable 200-239 mg/dL, Borderline high >239 mg/dL, High Performed By: #### 2 4331-1 #### [facility] CLIA [id number] [address] [place] [address] [place] [facility] CLIA [id number] [address] [place] [address] [place] #### 3016-3, DHEAS #### [facility] CLIA [id number] [address] [place] [address] [place] Cholesterol in HDL [Mass/Vol] 54 mg/dL Normal >39 [facility] Comment on above: Order Comment: Speci men Type: BLOOD SPECIMEN Ordering Facility: [facility] Address: [address] [place] [address] Result Comment: 40-5 9 mg/dL, Acceptable >59 mg/dL, High: Negative risk factor for coronary heart disease <40 mg/dL, Low: Positive risk factor for coronary heart disease Performed By: #### 2 4331-1 #### [facility] CLIA [id number] [address] [place] [address] [place] [facility] CLIA [id number] [address] [place] [address] [place] #### 3016-3, DHEAS #### [facility] CLIA [id number] [address] [place] [address] [place] Cholesterol in LDL [Mass/Vol] 91 mg/dL Normal <100 [facility] Comment on above: Order Comment: Speci men Type: BLOOD SPECIMEN Ordering Facility: [facility] Address: [address] [place] [address] Result Comment: <100 mg/dL, Optimal 100-129 mg/dL, Near optimal/above optimal 130-159 mg/dL, Borderline high 160-189 mg/dL, High >189 mg/dL, Very high Secondary prevention optimal LDL Cholesterol levels are recommended to be < 70 mg/dL Performed By: #### 2 4331-1 #### [facility] CLIA [id number] [address] [facility] [place] [address] [place] [facility] CLIA [id number] [address] [place] [address] [place] #### 3016-3, DHEAS #### [facility] CLIA [id number] [address] [place] [address] [place] Cholesterol in LDL/Cholesterol in HDL [Mass ratio] 1.69 {ratio} Normal <2.54 [facility] Comment on above: Order Comment: Speci men Type: BLOOD SPECIMEN Ordering Facility: [facility] Address: [address] [place] [address] Result Comment: Refe boris: 1. National Cholesterol Education Program ATP III Guideline At-A-Glance Quick Desk Reference: National Heart, Lung, and Blood [place]. National Institutes of Health. 2001: NIH Publication No. 01-3305. 2. An International Atherosclerosis Society position paper: global recommendations for the management of dyslipidemia: executive summary, Atherosclerosis. 2014: 232(2):410-413. Performed By: #### 2 4331-1 #### [facility] CLIA [id number] [facility] [place] [address] [place] [facility] CLIA [id number] [address] [place] [address] [place] #### 3016-3, DHEAS #### [facility] CLIA [id number] [facility] [place] [address] [place] Cholesterol in VLDL [Mass/Vol] 25 mg/dL Normal <30 [facility] Comment on above: Order Comment: Speci men Type: BLOOD SPECIMEN Ordering Facility: [facility] Address: [address] [place] [address] Performed By: #### 2 4331-1 #### [facility] CLIA [id number] [address] [place] [address] [place] [facility] CLIA [id number] [address] [place] [address] [place] #### 3016-3, DHEAS #### [facility] CLIA [id number] [address] [place] [address] [place] Cholesterol non HDL [Mass/Vol] 116 mg/dL Normal <130 [facility] Comment on above: Order Comment: Speci men Type: BLOOD SPECIMEN Ordering Facility: [facility] Address: [address] [place] [address] Result Comment: <130 mg/dL, Optimal 130-159 mg/dL, Near optimal/above optimal 160-189 mg/dL, Borderline high 190-219 mg/dL, High >219 mg/dL, Very high Secondary prevention optimal non HDL Cholesterol levels are recommended to be <100 mg/dL Performed By: #### 2 4331-1 #### [facility] CLIA [id number] [address] [place] [address] [place] [facility] CLIA [id number] [address] [place] [address] [place] #### 3016-3, DHEAS #### [facility] CLIA [id number] [address] [place] [address] [place] Cholesterol.total/C holesterol in HDL [Mass ratio] 3.15 {ratio} Normal <5.10 [facility] Comment on above: Order Comment: Speci men Type: BLOOD SPECIMEN Ordering Facility: [facility] Address: [address] [place] [address] Performed By: #### 2 4331-1 #### [facility] CLIA [id number] [facility] [place] [address] [place] [facility] CLIA [id number] [address] [place] [address] [place] #### 3016-3, DHEAS #### [facility] CLIA [id number] [address] [place] [address] [place] FASTING TIME 12 hrs Normal [facility] Comment on above: Order Comment: Speci men Type: BLOOD SPECIMEN Ordering Facility: [facility] Address: [address] [place] [address] Performed By: #### 2 4331-1 #### [facility] CLIA [id number] [address] [place] [address] [place] [id number] [address] [place] [address] [place] #### 3016-3, DHEAS #### [facility] CLIA [id number] [address] [place] [address] [place] Triglyceride [Mass/Vol] 126 mg/dL Normal <150 [facility] Comment on above: Order Comment: Speci men Type: BLOOD SPECIMEN Ordering Facility: [facility] Address: [address] [place] [address] Result Comment: <150 mg/dL, Normal 150-199 mg/dL, Borderline high 200-499 mg/dL, High >499 mg/dL, Very high Performed By: #### 2 4331-1 #### [facility] CLIA [id number] [address] [place] [address] [place] [facility] CLIA [id number] [address] [place] [address] [place] #### 3016-3, DHEAS #### [facility] CLIA [id number] [address] [place] [address] [place] SURGICAL PATHOLOGYon 024 CASE REPORT Normal [facility] Comment on above: Order Comment: Speci men Type: TISSUE SPECIMEN Ordering Facility: [facility] Address: [address] [place] [address] Result Comment: Surg ical Pathology Report Case: [id number] Authorizing Provider: Deborah Rasmussen APRN.CNM Collected: 12/26/2023 10:00 AM Ordering Location: OB/Gynecology Received: 12/26/2023 11:53 AM Pathologist: Perla Vu MD Specimen: Endometrium, Biopsy Performed By: #### S #### [facility] CLIA [id number] [address] [place] [address] [place] CLINICAL HISTORY Endometrial polyp, endometrioma Normal [facility] Comment on above: Order Comment: Speci men Type: TISSUE SPECIMEN Ordering Facility: [facility] Address: [address] [place] [address] Performed By: #### S #### [facility] CLIA [id number] [address] [place] [address] [place] FINAL DIAGNOSIS Normal [facility] Comment on above: Order Comment: Speci men Type: TISSUE SPECIMEN Ordering Facility: [facility] Address: [address] [place] [address] Result Comment: A. E ndometrium, biopsy: - Polypoid fragments of benign endometrium with changes consistent with exogenous progestin effect. Performed By: #### S #### [facility] CLIA [id number] [address] [place] [address] [place] FINAL PERFORMING LAB Normal [facility] Comment on above: Order Comment: Speci men Type: TISSUE SPECIMEN Ordering Facility: [facility] Address: [address] [place] [address] Result Comment: Diag nostic interpretation performed at [facility] - [facility], [address] [place] [address] CLIA# [id number] Nuclear Radiation Engineer: Miguel Angel Santacruz M.D. Performed By: #### S #### [facility] CLIA [id number] [address] [place] [address] [place] GROSS DESCRIPTION Normal [facility] Comment on above: Order Comment: Speci men Type: TISSUE SPECIMEN Ordering Facility: [facility] Address: [address] [place] [address] Result Comment: A. E ndometrium, Biopsy Received in formalin are multiple lopez to brown, soft feathery segments of tissue admixed with mucinous material aggregating to 2.0 x 1.8 x 0.1 cm. Totally submitted in one cassette. DB December 26, 2023 7:38 PM Gross [place] [address] Performed By: #### S #### [facility] CLIA [id number] [address] [place] [address] [place] TESTOSTERONE, FREE AND TOTAL on 12-26-2023 TESTOSTERONE, FREE, S 0.40 ng/dL Normal <0.13-0.98 [facility] Comment on above: Order Comment: Speci men Type: BLOOD SPECIMEN Ordering Facility: [facility] Address: [address] [place] [address] Result Comment: ADDITIONAL INFORMATION This test was developed and its performance characteristics determined by [facility] in a manner consistent with CLIA requirements. This test has not been cleared or approved by the U.S. Food and Drug Administration. Performed By: #### T FTEST #### [facility] CLIA [id number] [address] [place] [address] TESTOSTERONE, TOTAL, S 12 ng/dL Normal 8-60 [facility] Comment on above: Order Comment: Speci men Type: BLOOD SPECIMEN Ordering Facility: [facility] Address: [address] [place] [address] [place] [address] Result Comment: ADDITIONAL INFORMATION Testing performed by Liquid Chromatography-Tandem Mass Spectrometry (LC-MS/MS). This test was developed and its performance characteristics determined by [facility] in a manner consistent with CLIA requirements. This test has not been cleared or approved by the U.S. Food and Drug Administration. Test Performed by: [facility] [address] [place] [address] Dryer Operator: Jose Enrique Lira M.D. Ph.D.; CLIA# [id number] Performed By: #### T FTEST #### [facility] CLIA [id number] [address] [place] [address] TSH SerPl-aCncon 12-26-2023 TSH Qn 2.270 m[IU]/L Normal 0.270-4.200 [facility] Comment on above: Order Comment: Speci men Type: BLOOD SPECIMEN Ordering Facility: [facility] Address: [address] [place] [address] Result Comment: If t he patient is , TSH reference range varies by gestational period: First Trimester (weeks 9-12): 0.180-2.990 mIU/L Second Trimester: 0.110-3.980 mIU/L Third Trimester: 0.480-4.710 mIU/L Tray Camejo et al. A Practical Approach for the Verifications and Determination of Site- and Trimester-Specific Reference Intervals for Thyroid Function tests in . Thyroid, 2019:29:3:412-420. Darrel E, et al. 2017 Guidelines of the [place] Thyroid Association for the Diagnosis and Management of Thyroid Disease during and the . Thyroid, 2017:27:3:315-389. Performed By: #### 2 4331-1 #### [facility] CLIA [id number] [address] [id number] [address] [place] [facility] CLIA [id number] [address] [place] [address] [place] #### 3016-3, DHEAS #### [facility] CLIA [id number] [address] [place], [place] [id number] [place] UA DIP,URINE HCG (POC)on Beta HCG ( test) Ql (U) Negative Negative [facility] Comment on above: Location:[facility], [address]], [place], [address] Bottler Helper (POCT) Internal QC OK [facility] Location:[facility], [address]], [place], [place], [address] [place] [address] POINT OF CARE [facility] CNPNon 12-22-2023 CNPN Telephone (OBGYWM) -------- BUTCH KELLY ([id number]) 1980 F Date Time Provider Department 12/22/23 DEBORAH RASMUSSEN During your visit today, we recorded the following information about you: Eduarda Allan RN 12/22/2023 3:14 PM Signed Patient called requesting a sooner appointment with . No sooner openings. Patient wants an appointment with any provider for an EMB so that she can proceed with a hysterectomy. Scheduled with on Monday. Please place EMB order to attach to her appointment. Eduarda Allan RN Allergies As of Date: 12/22/2023 (No Known Allergies) Date Reviewed: 12/11/2023 Reviewed by: John Nelson MA - Fully Assessed Reason for Visit: Orders [681] Prescriptions as of 12/25/2023 - keTORolac (TORADOL) 10 mg tablet Take 1 tablet by mouth every 6 hours as needed. - levonorgestrel (MIRENA) 20 mcg/24 hours (8 yrs) 52 mg IUD 1 Each by INTRAUTERINE route as directed. - rimegepant (NURTEC ODT) 75 mg disintegrating tablet Take 1 tablet by mouth as needed (for migriane pain. Max dose is 1 tab in 24 hrs.). - levonorgestrel (MIRENA) 20 mcg/24 hours (8 yrs) 52 mg IUD 1 Each by INTRAUTERINE route as directed. - cholecalciferol (VITAMIN D-3) 5,000 unit tab Take 1 tablet by mouth once daily. - valACYclovir (VALTREX) 500 mg tablet Take 1 tablet by mouth once daily. - clobetasol (TEMOVATE) 0.05 % ointment Apply thin layer to affected area once a day x 4wks, then every other day for 4 wks, then twice weekly for 4 weeks then PRN for symptoms - cholestyramine-sucrose (QUESTRAN) 4 gram powder Take 4 g by mouth twice daily with meals. Problem List As Of Date: 12/22/2023 (None) Encounter Status:Closed by IRIS QUINN on 12/25/23 Normal [facility] US Pelvison 12-15-2023 Indication pelvic pain Impression Anteverted fibroid uterus that measures 80 mm x 50 mm x 59 mm. There is a 1.8 cm intramural fibroid present. The central endometrium complex measures 12.9 mm in combined thickness. There is a small amount of fluid in the endometrial cavity. No abnormal blood flow to suggest focal endometrial pathology is observed within the endometrial complex. The contour of the endometrial cavity was normal on 3-D imaging. 3D rendering of the uterus confirms the proper location of the IUD within the endometrial cavity. There is a likely endometrial polyp noted measuring 1.3 cm in size at the fundus of the uterus. The right ovary is normal appearing. There is a left ovarian cyst that measures 3.9 cm in size. Appearance is most consistent with an endometrioma. No free fluid in the pelvic CDS. Recommendations Possible endometrioma. Repeat ultrasound in 3 months. Menstrual History LMP on 11/27/2023 Method Transabdominal, transvaginal, 3D ultrasound examination, Color Doppler examination Uterus Uterus: Visualized Uterus position: anteverted Uterus length 80 mm Uterus width 59 mm Uterus height 50 mm Uterus Vol 123.6 cm Endometrial thickness, total 12.9 mm Uterine fibroid D1 13 mm Uterine fibroid D2 15 mm Uterine fibroid D3 18 mm Uterine fibroid mean 15.3 mm Uterine fibroid vol 1.838 cm Uterine fibroids findings: Posterior, fundal Uterine polyp D1 12 mm Uterine polyp D2 13 mm Uterine polyp D3 10 mm Uterine polyp mean 11.7 mm Uterine polyp findings: Fundal IUCD Position control Location: placed correctly at the fundus of the uterus Right Ovary Rt ovary: Visualized Rt ovary D1 12 mm Rt ovary D2 14 mm Rt ovary D3 11 mm Rt ovary Vol 0.9 cm Left Ovary Lt ovary: Visualized Lt ovary D1 37 mm Lt ovary D2 34 mm Lt ovary D3 39 mm Lt ovary Vol 25.6 cm Lt ovarian cyst D1 39 mm Lt ovarian cyst D2 37 mm Lt ovarian cyst D3 33 mm Lt ovarian cyst mean 36.3 mm Lt ovarian cyst vol 24.933 cm Lt ovarian cyst findings: Endometrioma with homogeneous low-level/ground glass echoes [place] Visualized. no free fluid visualized Performed By: Mona Peter RDMS, RVT Read By: Radha Cormier M.D. MATERNAL MEDICINE [facility] BACTERIAL VAGINOSIS NAATon 0 12-12-2023 Interpretation and review of laboratory results Abnormal [facility] Lactobacillus crispatus+gasseri+j ensenii + Gardnerella vaginalis + Atopobium vaginae rRNA WILLIAM+probe Ql (Vag fld) Positive Abnormal Negative for bacterial vaginosis [facility] BARB/TRICHOMONAS NAATon 0 12-12-2023 C. glabrata RNA WILLIAM+probe Ql (Vag fld) Negative Negative for Barb glabrata [facility] Barb sp DNA WILLIAM+probe Ql (Vag fld) Negative Negative for Barb species [facility] Interpretation and review of laboratory results Normal [facility] T. vaginalis DNA WILLIAM+probe Ql (Unsp spec) Negative Negative for Trichomonas vaginalis by amplification [facility] BACTERIAL VAGINOSIS NAATon 0 12-11-2023 Lactobacillus crispatus+gasseri+j ensenii + Gardnerella vaginalis + Atopobium vaginae rRNA WILLIAM+probe Ql (Vag fld) Positive Abnormal Negative for bacterial vaginosis [facility] Comment on above: Order Comment: Speci men Type: SWAB Ordering Facility: [facility] Address: [address] [place] [address] Performed By: #### C VTV, BVAMP #### [facility] CLIA [id number] [address] [place] [address] [place] BARB/TRICHOMONAS NAATon 0 12-11-2023 C. glabrata RNA WILLIAM+probe Ql (Vag fld) Negative Normal Negative for Barb glabrata [facility] Comment on above: Order Comment: Speci men Type: SWAB Ordering Facility: [facility] Address: [address] [place] [address] Performed By: #### C VTV, BVAMP #### [facility] CLIA [id number] [address] [place] [address] [place] Barb sp DNA WILLIAM+probe Ql (Vag fld) Negative Normal Negative for Barb species [facility] Comment on above: Order Comment: Speci men Type: SWAB Ordering Facility: [facility] Address: [address] [place] [address] Performed By: #### C VTV, BVAMP #### [facility] CLIA [id number] [address] [place] [address] [place] T. vaginalis DNA WILLIAM+probe Ql (Unsp spec) Negative Normal Negative for Trichomonas vaginalis by amplification [facility] Comment on above: Order Comment: Speci men Type: SWAB Ordering Facility: [facility] Address: [address] [place] [address] Performed By: #### C VTV, BVAMP #### [facility] CLIA [id number] [address] [place] [address] [place] CNOVon 12-11-2023 CNOV Office Visit (OBGYWM ) -------- BUTCH KELLY ([id number]) 1980 F Date Time Provider Department 12/11/23 8:00 AM DEBORAH RASMUSSEN OBGYWTonya During your visit today, we recorded the following information about you: Blood pressure Weight 116/74 89.4 kg Deborah Rasmussen APRN.CN 12/18/2023 7:22 PM Signed Butch is a 43 year old who presents for an annual gynecologic exam with complaints, heavy bleeding and pelvic pain. Feels she can hit cervix and string hanging out of vagina at times Incontinence of urine. Urinated 10 times due to leakage, urge is not present but leaking so afraid she is leaking. When more empty can't hold it. Does not have frequency. Menses: no menses - Mirena IUD. Bleeding every 2.5 weeks for 7 days. Heavy for first 3 days then light. Heavy days change super tampon about 6 times a day and uses 2 at a time. Pain has increased, mild pain throughout the month. Before, during, and after menses moderate to sever pain. Pain has taken her to the ED where she received Toradol and that helped. Pain can be 10/10 when severe. Taking toradol at home when pain is severe. Would like IUD removed and to discuss other options as this is effecting her daily life. Requesting hysterectomy if possible. EMB 04/06/22 Contraception: IUD HPV vaccine: No Last Pap: 06/25/2018 normal HPV: 06/22/2018 negative History of abnormal pap: No Last mammogram: 2021normal Sexually active: Yes Time with current partner: , together since 1996, in 2001 Pain with intercourse: yes, when hitting cerix Postcoital bleeding: No Exercise: None Diet: Feels she does well. Seatbelt use: Yes OB History T0 L5 SAB0 IAB0 Ectopic0 Multiple0 Live Births0 Collections Associate History LMP: 04/17/2022 (Exact Date), IUD Age at Menarche: Age at First : Age at Menopause: Collections Associate History Comments: Sexual Activity: Yes; Male Contraception: Condom PAST MEDICAL HISTORY Diagnosis Date Cephalgia Pseudotumor cerebri Pyelonephritis PAST SURGICAL HISTORY Procedure Laterality Date APPENDECTOMY 08/21/1999 COLONOSCOPY GEN ANES 05/27/2021 lax anal sphincter, neg biopsies EGD 05/27/2021 mild chronic gastritis PAST SURGICAL HISTORY OF 08/21/2004 Sinus surgery PAST SURGICAL HISTORY OF Right 07/2021 Shoulder surgery FAMILY HISTORY Problem Relation Age of Onset No Known Problems Mother Hypertension Father Cancer Father No Known Problems Sister Hypertension Brother No Known Problems Brother Alzheimer's Disease Maternal Grandmother No Known Problems Paternal Grandmother No Known Problems Paternal Grandfather Arthritis Daughter Colon Cancer No Family History SOCIAL HISTORY Social History Tobacco Use Smoking status: Never Smokeless tobacco: Never Vaping Use Vaping Use: Never used Substance Use Topics Alcohol use: No Drug use: No REVIEW OF SYSTEMS Abdomen: No abdominal pain, nausea, vomiting, diarrhea, or constipation. No bloating, early satiety, indigestion, or increased flatulence. Bladder: No dysuria, gross hematuria, urinary frequency, urinary urgency, or incontinence. Breast: No breast lumps, nipple d/c, overlying skin changes, redness or skin retraction. Allergies and current medication updated:Yes EXAM: BP 116/74 Wt 197 lb 3.2 oz (89.4kg) LMP 04/17/2022 GENERAL: pleasant, female in no apparent distress HEENT: Normocephalic, atraumatic, mucus membranes moist, and no lesions NECK: Supple, full range of motion, no adenopathy, and thyroid normal DERMATOLOGY: Normal, without lesions, non-icteric, and non-hirsute BREAST: soft, non-tender, symmetric, no dominant mass, normal nipple-areolar complex, no lymphadenopathy, and no nipple discharge CHEST: Clear to auscultation, Normal inspiratory effort, Regular rate and rhythm, and No murmurs, clicks, rubs or gallops ABDOMEN: soft, distended and no masses, Right lower quadrant pain with palpation. PELVIC: external genitalia normal, normal Bartholin's glands, urethra, Newburgh's glands, no vulvar lesions, no cervical lesions, good vaginal support, normal appearing perineal body and perianal region, cystocele 2nd degree, rectocele 1st degree, cervical prolapse 1st degree. IUD strings present. BIMANUAL: uterus normal size, shape and consistency, no adnexal masses. No CMT. Midline pain and RLQ pain, rating 5/10, sharp. RECTOVAGINAL: deferred. NEURO: alert and oriented x3,exam grossly non-focal EXTREMITIES: normal ASSESSMENT/PLAN: 1. Encounter for gynecological examination (general) (routine) with abnormal findings - ICD9: V72.31, ICD10: Z01.411 (primary diagnosis) - Completed pelvic and breast exam - Encouraged monthly BSE - Follow up for annual exam in one year. - PAP TEST - BACTERIAL VAGINOSIS NAAT - BARB/TRICHOMONAS NAAT - HIGH RISK HUMAN PAPILLOMA VIRUS (HPV), PCR FOR DETECTION AND GENOTYP (more content not included)... Normal [facility] HIGH RISK HUMAN PAPILLOMA TOMEKA (HPV), PCR FOR DETECTION AND GENOTYPINGon 12-11-2023 HPV 16 Ag Ql (Unsp spec) Negative Normal Negative for HPV DNA high risk type 16 by PCR [facility] Comment on above: Order Comment: Speci men Type: FLUID SPECIMEN Ordering Facility: [facility] Address: [address] [place] [address] Performed By: #### L [id number] #### [facility] CLIA [id number] [address] [place] [address] [place] [facility] CLIA [id number] [address] [place] [address] [place] #### HPVHRT #### [facility] CLIA [id number] [address] [place] [address] [place] HPV 18 Ag Ql (Unsp spec) Negative Normal Negative for HPV DNA high risk type 18 by PCR [facility] Comment on above: Order Comment: Speci men Type: FLUID SPECIMEN Ordering Facility: [facility] Address: [address] [place] [address] Performed By: #### L [id number] #### [facility] CLIA [id number] [address] [place] [address] [place] [facility] CLIA [id number] [address] [place] [address] [place] #### HPVHRT #### [facility] CLIA [id number] [address] [place] [address] [place] HPV 31+33+35+39+45+51+5 2+56+58+59+66+68 DNA WILLIAM+probe Ql (Cvx) Negative for HPV DNA high risk types: 31,33,35,39,45,51,52,56, 58,59,66,68 by PCR. Normal Negative for HPV DNA high risk types: 31,33,35,39,45, 51,52,56,58,59, 66,68 by PCR. [facility] Comment on above: Order Comment: Speci men Type: FLUID SPECIMEN Ordering Facility: [facility] Address: [address] [place] [address] Performed By: #### L [id number] #### [facility] CLIA [id number] [address] [place] [address] [place] [facility] CLIA [id number] [address] [place] [address] [place] #### HPVHRT #### [facility] CLIA [id number] [address] [place] [address] [place] PAP TESTon 12-11-2023 ADEQUACY Satisfactory for interpretation. Normal [facility] Comment on above: Order Comment: Speci men Type: FLUID SPECIMEN Ordering Facility: [facility] Address: [address] [place] [address] Performed By: #### L [id number] #### [facility] CLIA [id number] [address] [place] [address] [place] [facility] CLIA [id number] [address] [place] [address] [place] #### HPVHRT #### [facility] CLIA [id number] [address] [place] [address] [place] CASE REPORT Normal [facility] Comment on above: Order Comment: Speci men Type: FLUID SPECIMEN Ordering Facility: [facility] Address: [address] [place] [address] Result Comment: Gyne cologic Cytology Report Case: [id number] Authorizing Provider: Deborah Rasmussen APRN.CNM Collected: 12/11/2023 08:44 AM Ordering Location: OB/Gynecology Received: 12/11/2023 11:56 AM First Screen: Jagjit Dotson, MICHAEL, ASCP Specimen: Pap Test, ThinPrep, Cervix Performed By: #### L [id number] #### [facility] CLIA [id number] [place] [address] [place] [facility] CLIA [id number] [address] [place] [address] [place] #### HPVHRT #### [facility] CLIA [id number] [address] [place] [address] [place] CLINICAL HISTORY, CYTOLOGY, 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 Routine Exam Normal [facility] Comment on above: Order Comment: Speci men Type: FLUID SPECIMEN Ordering Facility: [facility] Address: [address] [place] [address] Result Comment: Intr a Uterine Device, No Menses Performed By: #### L [id number] #### [facility] CLIA [id number] [address] [place] [address] [place] [facility] CLIA [id number] [address] [place] [address] [place] #### HPVHRT #### [facility] CLIA [id number] [address] [place] [address] [place] FINAL PERFORMING LAB Normal [facility] Comment on above: Order Comment: Speci men Type: FLUID SPECIMEN Ordering Facility: [facility] Address: [address] [place] [address] Result Comment: Tech nical component, revenue settlements administrator screening performed at [facility], [id number] [place] [address] CLIA# [id number] Diagnostic interpretation performed at [facility], [address] [place] [address] CLIA# [id number] Nuclear Radiation Engineer: Sunny Reyes M.D. Performed By: #### L [id number] #### [facility] CLIA [id number] [address] [place] [id number] [place] [facility] CLIA [id number] [address] [place] [address] [place] #### HPVHRT #### [facility] CLIA [id number] [address] [place] [address] [place] HPV REFLEX Yes HPV Normal [facility] Comment on above: Order Comment: Speci men Type: FLUID SPECIMEN Ordering Facility: [facility] Address: [address] [place] [address] Performed By: #### L [id number] #### [facility] CLIA [id number] [address] [place] [address] [place] [facility] CLIA [id number] [address] [place] [address] [place] #### HPVHRT #### [facility] CLIA [id number] [address] [place] [address] [place] INTERPRETATION, CYTOLOGY, 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 Normal [facility] Comment on above: Order Comment: Speci men Type: FLUID SPECIMEN Ordering Facility: [facility] Address: [address] [place] [address] Result Comment: Nega tive for intraepithelial lesion or malignancy. Performed By: #### L [id number] #### [facility] CLIA [id number] [address] [place] [address] [place] [facility] CLIA [id number] [address] [place] [address] [place] #### HPVHRT #### [facility] CLIA [id number] [address] [place] [address] [place] PAP DISCLAIMER COMMENT The Pap Smear is a screening test for cervical cancer. False negative results occur with all screening tests, emphasizing the need for rescreening at recommended intervals, and clinical correlation. Normal [facility] Comment on above: Order Comment: Speci men Type: FLUID SPECIMEN Ordering Facility: [facility] Address: [address] [place] [address] Performed By: #### L [id number] #### [facility] CLIA [id number] [address] [place] [address] [place] [facility] CLIA [id number] [address] [place] [address] [place] #### HPVHRT #### [facility] CLIA [id number] [address] [place] [address] [place] PAP RESEARCH [facility] PARTNER COMMENT This specimen has be en analyzed by the ThinPrep Imaging System, an automated imaging and review system, which assists the laboratory in evaluating cells on ThinPrep Pap tests. Following automated imaging, selected barajas from every slide are reviewed by a revenue settlements administrator. Normal [facility] Comment on above: Order Comment: Speci men Type: FLUID SPECIMEN Ordering Facility: [facility] Address: [address] [place] [address] Performed By: #### L [id number] #### [facility] CLIA [id number] [address] [place] [address] [place] [facility] CLIA [id number] [address] [place] [address] [place] #### HPVHRT #### [facility] CLIA [id number] [address] [place] [address] [place] Pelvison 12-11-2023 Radiology Study observation (narrative) [facility] .Auto Diffon 10-31-2023 Basophil, Absolute 0.0 10 3/mcL Normal 0.0-0.3 [facility] ([place]) Comment on above: Performed By: #### M DW, GFR, ANEU, ADIFF, LIP, CBC, CMP #### [address] [address] Basophils/100 WBC (Bld) 0.2 % Normal 0.0-2.5 [facility] ([place]) Comment on above: Performed By: #### M DW, GFR, ANEU, ADIFF, LIP, CBC, CMP #### [address] [address] Eosinophil, Absolute 0.2 10 3/mcL Normal 0.0-0.7 [facility] ([place]) Comment on above: Performed By: #### M DW, GFR, ANEU, ADIFF, LIP, CBC, CMP #### [address] [address] Eosinophils/100 WBC (Bld) 2.0 % Normal 0.0-6.0 [facility] ([place] Comment on above: Performed By: #### M DW, GFR, ANEU, ADIFF, LIP, CBC, CMP #### [address] [address] Lymphocyte, Absolute 1.2 10 3/mcL Normal 0.9-4.3 [facility] ([place] Comment on above: Performed By: #### M DW, GFR, ANEU, ADIFF, LIP, CBC, CMP #### [address] [address] Lymphocytes/100 WBC (Bld) 14.4 % Low 20.0-40.0 [facility] ([place] Comment on above: Performed By: #### M DW, GFR, ANEU, ADIFF, LIP, CBC, CMP #### [address] [address] Monocyte, Absolute 0.6 10 3/mcL Normal 0.1-1.4 [facility] ([place] Comment on above: Performed By: #### M DW, GFR, ANEU, ADIFF, LIP, CBC, CMP #### [address] [address] Monocytes/100 WBC (Bld) 7.0 % Normal 2.0-13.0 [facility] ([place] Comment on above: Performed By: #### M DW, GFR, ANEU, ADIFF, LIP, CBC, CMP #### [address] [address] Neutrophils/100 WBC (Bld) 76.4 % High 50.0-75.0 [facility] ([place] Comment on above: Performed By: #### M DW, GFR, ANEU, ADIFF, LIP, CBC, CMP #### [address] [address] .GFRon 10-31-2023 GFR >60 Normal [facility] ([place] Comment on above: Result Comment: GFR Population mean for , Non- Americans Ages 20-29 = 116 mL/min/1.73 sq.m. Ages 30-39 = 107 mL/min/1.73 sq.m. Ages 40-49 = 99 mL/min/1.73 sq.m. Ages 50-59 = 93 mL/min/1.73 sq.m. Ages 60-69 = 85 mL/min/1.73 sq.m. Ages 70+ = 75 mL/min/1.73 sq.m. Chronic Kidney Disease: Less than 60 mL/min/1.73 square meters End Stage Renal Disease: Less than 15 mL/min/1.73 square meters Performed By: #### B MP, CBC, GFR, ADIFF, ANEU #### [address] [address] GFR Non- >60 Normal [facility] ([place]) Comment on above: Result Comment: GFR Population mean for , Non- Americans Ages 20-29 = 116 mL/min/1.73 sq.m. Ages 30-39 = 107 mL/min/1.73 sq.m. Ages 40-49 = 99 mL/min/1.73 sq.m. Ages 50-59 = 93 mL/min/1.73 sq.m. Ages 60-69 = 85 mL/min/1.73 sq.m. Ages 70+ = 75 mL/min/1.73 sq.m. Chronic Kidney Disease: Less than 60 mL/min/1.73 square meters End Stage Renal Disease: Less than 15 mL/min/1.73 square meters Performed By: #### B MP, CBC, GFR, ADIFF, ANEU #### [address] [address] .MDWon 10-31-2023 Monocyte Distribution Width 18.46 Normal 0.00-20.00 [facility] ([place]) Comment on above: Result Comment: For ED adult patients suspected of sepsis, MDW<=20.0 does not rule out sepsis or risk of sepsis Performed By: #### B MP, CBC, GFR, ADIFF, ANEU #### [place] [address] .NEUABSon 10-31-2023 Neutrophil, Absolute 6.6 10 3/mcL Normal 2.3-8.1 [facility] ([place] Comment on above: Performed By: #### M DW, GFR, ANEU, ADIFF, LIP, CBC, CMP #### [place] [address] CBCon 10-31-2023 Erythrocyte distribution width (RBC) [Ratio] 13.5 % Normal 11.5-15.5 [facility] ([place] Comment on above: Performed By: #### M DW, GFR, ANEU, ADIFF, LIP, CBC, CMP #### [place] [address] Hematocrit (Bld) [Volume fraction] 39.5 % Normal 34.0-46.0 [facility] ([place] Comment on above: Performed By: #### M DW, GFR, ANEU, ADIFF, LIP, CBC, CMP #### [place] [address] Hgb 13.5 G/dL Normal 12.0-16.0 [facility] ([place] Comment on above: Performed By: #### M DW, GFR, ANEU, ADIFF, LIP, CBC, CMP #### [place] [address] MCH (RBC) [Entitic mass] 29.1 pg Normal 27.0-33.0 [facility] ([place] Comment on above: Performed By: #### M DW, GFR, ANEU, ADIFF, LIP, CBC, CMP #### [place] [address] MCHC 34.1 G/dL Normal 32.0-36.0 [facility] ([place] Comment on above: Performed By: #### M DW, GFR, ANEU, ADIFF, LIP, CBC, CMP #### [place] [phone] MCV (RBC) [Entitic vol] 85.3 fL Normal 80.0-99.0 [facility] ([place] Comment on above: Performed By: #### M DW, GFR, ANEU, ADIFF, LIP, CBC, CMP #### [place] [address] Platelet 156 10 3/mcL Normal 150-450 [facility] ([place] Comment on above: Performed By: #### M DW, GFR, ANEU, ADIFF, LIP, CBC, CMP #### [place] [address] Platelet mean volume (Bld) [Entitic vol] 10.6 fL High 6.6-10.5 [facility] ([place] Comment on above: Performed By: #### M DW, GFR, ANEU, ADIFF, LIP, CBC, CMP #### [place] [address] RBC 4.64 10 6/mcL Normal 4.10-5.30 [facility] ([place] Comment on above: Performed By: #### M DW, GFR, ANEU, ADIFF, LIP, CBC, CMP #### [place] [id number] WBC 8.6 10 3/mcL Normal 4.5-10.8 [facility] ([place] Comment on above: Performed By: #### M DW, GFR, ANEU, ADIFF, LIP, CBC, CMP #### [address] [address] CMPon 10-31-2023 Albumin Level 4.1 G/dL Normal 3.2-4.8 [facility] ([place] Comment on above: Performed By: #### B MP, CBC, GFR, ADIFF, ANEU #### [place] [phone] Albumin/Globulin [Mass ratio] 1.2 {ratio} Normal 0.9-1.6 [facility] ([place] Comment on above: Performed By: #### B MP, CBC, GFR, ADIFF, ANEU #### [address] [address] ALP [Catalytic activity/Vol] 66 U/L Normal 38-126 [facility] ([place] Comment on above: Performed By: #### B MP, CBC, GFR, ADIFF, ANEU #### [place] [phone] ALT [Catalytic activity/Vol] 14 U/L Normal 10-49 [facility] ([place] Comment on above: Performed By: #### B MP, CBC, GFR, ADIFF, ANEU #### [place] [phone] AST [Catalytic activity/Vol] 19 U/L Normal 8-34 [facility] ([place] Comment on above: Performed By: #### B MP, CBC, GFR, ADIFF, ANEU #### [place] [phone] Bili Total 0.90 mg/dL Normal 0.20-1.20 [facility] ([place] Comment on above: Result Comment: Use of this assay is not recommended for patients undergoing treatment with eltrombopag due to the potential for falsely elevated results. Performed By: #### B MP, CBC, GFR, ADIFF, ANEU #### [place] [phone] BUN/Creatinine Ratio 14.5 ratio Normal 10.0-22.0 [facility] ([place] Comment on above: Performed By: #### B MP, CBC, GFR, ADIFF, ANEU #### [place] [phone] Calcium [Mass/Vol] 9.1 mg/dL Normal 8.7-10.4 [facility] ([place]) Comment on above: Performed By: #### B MP, CBC, GFR, ADIFF, ANEU #### [place] [phone] Chloride [Moles/Vol] 106 mmol/L Normal 98-110 [facility] ([place] Comment on above: Performed By: #### B MP, CBC, GFR, ADIFF, ANEU #### [address] [address] CO2 [Moles/Vol] 28 mmol/L Normal 22-32 [facility] ([place] Comment on above: Performed By: #### B MP, CBC, GFR, ADIFF, ANEU #### [place] [phone] Creatinine [Mass/Vol] 0.76 mg/dL Normal 0.50-1.20 [facility] ([place] Comment on above: Performed By: #### B MP, CBC, GFR, ADIFF, ANEU #### [place] [phone] Electrolyte Balance 5.0 mEq/L Normal 4.0-15.0 [facility] ([place]) Comment on above: Performed By: #### B MP, CBC, GFR, ADIFF, ANEU #### [place] [phone] Globulin 3.5 G/dL Normal 1.5-3.8 [facility] ([place] Comment on above: Performed By: #### B MP, CBC, GFR, ADIFF, ANEU #### [place] [phone] Glucose [Mass/Vol] 122 mg/dL High 70-110 [facility] ([place] Comment on above: Performed By: #### B MP, CBC, GFR, ADIFF, ANEU #### [place] [phone] Potassium [Moles/Vol] 3.6 mmol/L Normal 3.5-5.0 [facility] ([place]) Comment on above: Result Comment: Spec imen slightly hemolyzed. Performed By: #### B MP, CBC, GFR, ADIFF, ANEU #### [place] [phone] Sodium [Moles/Vol] 139 mmol/L Normal 136-145 [facility] ([place] Comment on above: Performed By: #### B MP, CBC, GFR, ADIFF, ANEU #### [facility] [address] [place] [address] Total Protein 7.6 G/dL Normal 5.7-8.2 [facility] ([place]) Comment on above: Result Comment: No te - New Reference Range in effect 20 Performed By: #### B MP, CBC, GFR, ADIFF, ANEU #### [facility] [address] [place] [address] Urea nitrogen [Mass/Vol] 11.0 mg/dL Normal 8.0-22.0 [facility] ([place]) Comment on above: Performed By: #### B MP, CBC, GFR, ADIFF, ANEU #### [place] [phone] [place] [address] LABORATORYOrdered By: Lexus Lazar on 10-31-2023 Appearance (U) Clear (10/31/23 1:15 PM) Normal Clear Auto Urine SS Bilirubin Ql (U) Negative (10/31/23 1:15 PM) Normal Neg-Trace Auto Urine SS Color (U) Yellow (10/31/23 1:15 PM) Normal Auto Urine SS Glucose Test strip (U) [Mass/Vol] Negative Normal Negative Auto Urine SS Hemoglobin Auto test strip (U) [Mass/Vol] Trace (10/31/23 1:15 PM) Normal Neg-Trace Auto Urine SS Ketones Ql (U) Negative Normal Neg-Trace Auto Urine SS UA Leuk Est Negative (10/31/23 1:15 PM) Normal Negative Auto Urine SS UA Nitrite Negative (10/31/23 1:15 PM) Normal Negative Auto Urine SS UA pH 7.5 (10/31/23 1:15 PM) Normal 5.0 - 8.0 Auto Urine SS UA Protein Negative Normal Negative Auto Urine SS UA Spec Grav 1.020 (10/31/23 1:15 PM) Normal 1.006-1.029 Auto Urine SS UA Specimen Type Clean Catch (10/31/23 1:15 PM) Normal Auto Urine SS UA Urobilinogen 0.2 E.U./dL Normal 0.2-1.0 Auto Urine SS LABORATORYOrdered By: Cara Mendes on 10-31-2023 Beta HCG ( test) Ql (U) HCG not detected.Very dilute urine specimens, as indicated by a low specific gravity, may not contain roofing sales representative levels of hCG.If is still suspected, a first morning urine specimen should be collected 48 hours later and tested. Invalid Interpretation Code Manual Urine SS HCG Qn (U) Negative (10/31/23 1:15 PM) Normal Manual Urine SS LABORATORYOrdered By: SYSTEM SYSTEM on 10-31-2023 Albumin BCP dye [Mass/Vol] 4.1 G/dL Normal 3.2 - 4.8 G/dL ADM SS Albumin/Globulin [Mass ratio] 1.2 {ratio} Normal 0.9 - 1.6 ratio ADM SS ALP [Catalytic activity/Vol] 66 U/L Normal 38 - 126 U/L ADM SS ALT No additional P-5'-P [Catalytic activity/Vol] 14 U/L Normal 10 - 49 U/L ADM SS AST [Catalytic activity/Vol] 19 U/L Normal 8 - 34 U/L ADM SS Basophils (Bld) [#/Vol] 0.0 103/mcL Normal 0.0 - 0.3 10^3/mcL Workflow SS Basophils/100 WBC (Bld) 0.2 % Normal 0.0 - 2.5 % Workflow SS Bilirubin [Mass/Vol] 0.90 mg/dL Normal 0.20 - 1.20 mg/dL ADM SS Comment on above: Interpretive Data: U se of this assay is not recommended for patients undergoing treatment with eltrombopag due to the potential for falsely elevated results. Calcium [Mass/Vol] 9.1 mg/dL Normal 8.7 - 10. 4 mg/dL ADM SS Chloride [Moles/Vol] 106 mmol/L Normal 98 - 110 mEq/L ADM SS CO2 [Moles/Vol] 28 mmol/L Normal 22 - 32 mEq/L ADM SS Creatinine [Mass/Vol] 0.76 mg/dL Normal 0.50 - 1.20 mg/dL ADM SS Electrolyte Balance 5.0 mEq/L Normal 4.0 - 15 .0 mEq/L ADM SS Eosinophils (Bld) [#/Vol] 0.2 103/mcL Normal 0.0 - 0.7 10^3/mcL Workflow SS Eosinophils/100 WBC (Bld) 2.0 % Normal 0.0 - 6.0 % Workflow SS Erythrocyte distribution width (RBC) [Ratio] 13.5 % Normal 11.5 - 15.5 % Workflow SS GFR/1.73 sq M.predicted among blacks MDRD (S/P/Bld) [Vol rate/Area] ml/min/1.73sqm Invalid Interpretation Code [facility] Comment on above: Interpretive Data: GFR Population mean for , Non- Americans Ages 20-29 = 116 mL/min/1.73 sq.m. Ages 30-39 = 107 mL/min/1.73 sq.m. Ages 40-49 = 99 mL/min/1.73 sq.m. Ages 50-59 = 93 mL/min/1.73 sq.m. Ages 60-69 = 85 mL/min/1.73 sq.m. Ages 70+ = 75 mL/min/1.73 sq.m. Chronic Kidney Disease: Less than 60 mL/min/1.73 square meters End Stage Renal Disease: Less than 15 mL/min/1.73 square meters GFR/1.73 sq M.predicted among non-blacks MDRD (S/P/Bld) [Vol rate/Area] ml/min/1.73sqm Invalid Interpretation Code [facility] Comment on above: Interpretive Data: GFR Population mean for , Non- Americans Ages 20-29 = 116 mL/min/1.73 sq.m. Ages 30-39 = 107 mL/min/1.73 sq.m. Ages 40-49 = 99 mL/min/1.73 sq.m. Ages 50-59 = 93 mL/min/1.73 sq.m. Ages 60-69 = 85 mL/min/1.73 sq.m. Ages 70+ = 75 mL/min/1.73 sq.m. Chronic Kidney Disease: Less than 60 mL/min/1.73 square meters End Stage Renal Disease: Less than 15 mL/min/1.73 square meters Globulin 3.5 G/dL Normal 1.5 - 3.8 G/dL ADM Glucose [Mass/Vol] 122 mg/dL High 70 - 110 mg/dL ADM Hematocrit (Bld) [Volume fraction] 39.5 % Normal 34.0 - 46.0 % Workflow Hemoglobin (Bld) [Mass/Vol] 13.5 G/dL Normal 12.0 - 16.0 G/dL AH Workflow SS Lipase [Catalytic activity/Vol] 29 U/L Normal 12 - 53 U/L AH ADM SS Comment on above: Interpretive Data: * *Note - New Reference Range in effect 20 Lymphocytes (Bld) [#/Vol] 1.2 103/mcL Normal 0.9 - 4.3 10^3/mcL AH Workflow SS Lymphocytes/100 WBC (Bld) 14.4 % Low 20.0 - 40.0 % AH Workflow SS MCH (RBC) [Entitic mass] 29.1 pg Normal 27.0 - 33.0 pg AH Workflow SS MCHC 34.1 G/dL Normal 32.0 - 36.0 G/dL AH Workflow SS MCV (RBC) [Entitic vol] 85.3 fL Normal 80.0 - 99.0 fL AH Workflow SS Monocyte distribution width Auto (Bld) [Entitic vol] 18.46 1 Normal 0.00 - 20.00 AH Workflow SS Comment on above: Result Comment: For ED adult patients suspected of sepsis, MDW<=20.0 does not rule out sepsis or risk of sepsis Monocytes (Bld) [#/Vol] 0.6 103/mcL Normal 0.1 - 1.4 10^3/mcL AH Workflow SS Monocytes/100 WBC (Bld) 7.0 % Normal 2.0 - 13.0 % AH Workflow SS Neutrophils (Bld) [#/Vol] 6.6 103/mcL Normal 2.3 - 8.1 10^3/mcL AH Workflow SS Neutrophils/100 WBC (Bld) 76.4 % High 50.0 - 75.0 % AH Workflow SS Platelet mean volume (Bld) [Entitic vol] 10.6 fL High 6.6 - 10.5 fL AH Workflow SS Platelets (Bld) [#/Vol] 156 103/mcL Normal 150 - 450 10^3/mcL AH Workflow SS Potassium [Moles/Vol] 3.6 mmol/L Normal 3.5 - 5.0 mEq/L ADM SS Comment on above: Result Comment: Spec imen slightly hemolyzed. Protein [Mass/Vol] 7.6 G/dL Normal 5.7 - 8.2 G/dL ADM SS Comment on above: Interpretive Data: * *Note - New Reference Range in effect 20 RBC (Bld) [#/Vol] 4.64 106/mcL Normal 4.10 - 5.3 0 10^6/mcL Workflow SS Sodium [Moles/Vol] 139 mmol/L Normal 136 - 145 mEq/L A H ADM SS Urea nitrogen [Mass/Vol] 11.0 mg/dL Normal 8.0 - 22.0 mg/dL AH ADM SS Urea nitrogen/Creatinine [Mass ratio] 14.5 ratio Normal 10.0 - 22.0 ratio AH ADM SS WBC (Bld) [#/Vol] 8.6 103/mcL Normal 4.5 - 10.8 10^3/mcL Workflow SS LIPon 10-31-2023 Lipase Level 29 U/L Normal 12-53 [facility] ([place]) Comment on above: Result Comment: No te - New Reference Range in effect 20 Performed By: #### B MP, CBC, GFR, ADIFF, ANEU #### [place] [id number] PREGUon 10-31-2023 HCG ( test) Ql (U) Negative Normal [facility] ([place]) Comment on above: Performed By: #### P REGU #### [place] [id number] test (u) int Invalid Interpretation Code [facility] ([place] Comment on above: Result Comment: HCG not detected. Very dilute urine specimens, as indicated by a low specific gravity, may not contain roofing sales representative levels of hCG. If is still suspected, a first morning urine specimen should be collected 48 hours later and tested. Performed By: #### P REGU #### [address] [address] UAon 10-31-2023 Color (U) Yellow Normal [facility] ([place] Comment on above: Performed By: #### U A #### [address] [address] Glucose (U) [Mass/Vol] Negative Normal Negative [facility] ([place] Comment on above: Performed By: #### U A #### [address] [address] Ketones Ql (U) Negative Normal Neg-Trace [facility] ([place] Comment on above: Performed By: #### U A #### [place] [address] UA Appear Clear Normal Clear [facility] ([place] Comment on above: Performed By: #### U A #### [place] [address] UA Blood Trace Normal Neg-Trace [facility] ([place] Comment on above: Performed By: #### U A #### [place] [address] UA Leuk Est Negative Normal Negative [facility] ([place] Comment on above: Performed By: #### U A #### [place] [address] UA Nitrite Negative Normal Negative [facility] ([place] Comment on above: Performed By: #### U A #### [place] [address] UA pH 7.5 Normal 5.0 - 8.0 [facility] ([place] Comment on above: Performed By: #### U A #### [place] [address] UA Protein Negative Normal Negative [facility] ([place] Comment on above: Performed By: #### U A #### [place] [address] UA Spec Grav 1.020 Normal 1.006-1.029 [facility] ([place] Comment on above: Performed By: #### U A #### [place] [address] UA Specimen Type Clean Catch Normal [facility] ([place] Comment on above: Performed By: #### U A #### [place] [address] UA Urobilinogen 0.2 E.U./dL Normal 0.2-1.0 [facility] ([place] Comment on above: Performed By: #### U A #### [place] [address] Urobilinogen (U) [Mass/Vol] Negative Normal Neg-Trace [facility] ([place] Comment on above: Performed By: #### U A #### [place] [address] US PELVIS NON-OB W/TRANSVAGI NALon 10-31-2023 US PELVIS NON-OB W/TRANSVAGINAL ORIGINAL EXAMINATION: TRANSVAGINAL PELVIC ULTRASOUND 10/31/2023 TECHNIQUE: Transvaginal pelvic ultrasound was performed. COMPARISON: None HISTORY: ORDERING SYSTEM PROVIDED HISTORY: Reason for Exam: eval for ovarian torsion, rlq pain IUD inserted. FINDINGS: Measurements: Uterus: 8.0 x 5.6 x 4.1 Endometrial stripe: 5.6 mm Right Ovary:2.3 x 1.3 x 1.4 Left Ovary: 2.5 x 1.7 x 1.8 Ultrasound Findings: Uterus: Uterus demonstrates normal myometrial echotexture. Endometrial stripe: Endometrial stripe is within normal range and contains a echogenic focus representing the intrauterine device in appropriate location. Right Ovary: Right ovary is within normal limits. Left Ovary: Left ovary is within normal limits. Free Fluid: No evidence of free fluid. IMPRESSION: 1. Intrauterine device in appropriate location. 2. No acute pelvic process. Interpreted by: Louis Saenz DO Preliminary Report By: Louis Saenz DO Electronically signed By Louis Saenz DO Dictated Date: 10/31/2023 2:11:08 PM Prelim Date: 10/31/2023 2:18:48 PM Sign Date: 10/31/2023 2:18:48 PM Ordering Provider: MAIRA Bettencourt [facility] ([place]) PELVIC US WHIon 09-22-2022 [facility] HCG QUAL UR B/Oon 08-17-2022 status Negative neg - [facility] Quality Check Yes [facility] PELVIC US WHIon 03-11-2022 [facility] BACTERIAL VAGINOSIS AMPLIFIC ATIONon 03-10-2022 Lactobacillus crispatus+gasseri+j ensenii + Gardnerella vaginalis + Atopobium vaginae rRNA WILLIAM+probe Ql (Vag fld) Positive Abnormal Negative for bacterial vaginosis [facility] BARB / TRICHOMONAS AMPLIF ICATIONon 03-10-2022 C. glabrata RNA WILLIAM+probe Ql (Vag fld) Negative Negative for Barb glabrata [facility] Barb albicans, C. dubliniensis, C. parapsilosis, and C. tropicalis RNA WILLIAM+probe Ql (Vag fld) Positive Abnormal Negative for Barb species [facility] T. vaginalis DNA WILLIAM+probe Ql (Unsp spec) Negative Negative for Trichomonas vaginalis by amplification [facility] URINE CULTUREon 03-10-2022 Bacteria identified Cx Nom (U) No growth (<1,000 CFU/ml) [facility] VITAMIN D 25 HYDROXYon 03-10 25-hydroxyvitamin D3 [Mass/Vol] 24.4 ng/mL Low 31.0 - 80.0 ng/mL [facility] CBC W Auto Differential pane l (Bld)on 03-09-2022 Abs Immature Gran <0.03 <0.10 k/uL [facility] Basophils (Bld) [#/Vol] 10*3/uL <0.11 k/uL [facility] Basophils/100 WBC (Bld) 0.4 % [facility] Differential cell count method Nom (Bld) Auto [facility] Eosinophils (Bld) [#/Vol] 0.17 10*3/uL <0.46 k/uL [facility] Eosinophils/100 WBC (Bld) 3.6 % [facility] Erythrocyte distribution width (RBC) [Ratio] 14.0 % 11.5 - 15.0 % [facility] Hematocrit (Bld) [Volume fraction] 36.9 % 36.0 - 46.0 % [facility] Hemoglobin (Bld) [Mass/Vol] 11.9 g/dL 11.5 - 15.5 g/dL [facility] Immature Gran % 0.0 % [facility] Lymphocytes (Bld) [#/Vol] 1.23 10*3/uL 1.00 - 4.00 k/uL [facility] Lymphocytes/100 WBC (Bld) 26.3 % [facility] MCH (RBC) [Entitic mass] 26.8 pg 26.0 - 34.0 pg [facility] MCHC (RBC) [Mass/Vol] 32.2 g/dL 30.5 - 36.0 g/dL [facility] MCV (RBC) [Entitic vol] 83.1 fL 80.0 - 100.0 fL [facility] Monocytes (Bld) [#/Vol] 0.41 10*3/uL <0.87 k/uL [facility] Monocytes/100 WBC (Bld) 8.8 % [facility] Neutrophils (Bld) [#/Vol] 2.84 10*3/uL 1.45 - 7.50 k/uL [facility] Neutrophils/100 WBC (Bld) 60.9 % [facility] Nucleated RBC (Bld) [#/Vol] 10*3/uL <0.01 k/uL [facility] Nucleated RBC/100 WBC (Bld) [Ratio] 0.0 /100 WBC [facility] Platelet mean volume (Bld) [Entitic vol] 11.9 fL 9.0 - 12.7 fL [facility] Platelets (Bld) [#/Vol] 170 10*3/uL 150 - 400 k/uL [facility] RBC (Bld) [#/Vol] 4.44 10*6/uL 3.90 - 5.2 0 m/uL [facility] WBC (Bld) [#/Vol] 4.67 10*3/uL 3.70 - 11. 00 k/uL [facility] Lipid 1996 panelon 2 Cholesterol [Mass/Vol] 181 mg/dL <200 mg/dL [facility] Cholesterol in HDL [Mass/Vol] 56 mg/dL >39 mg/dL [facility] Cholesterol in LDL [Mass/Vol] 92 mg/dL <100 mg/dL [facility] Cholesterol in LDL/Cholesterol in HDL [Mass ratio] 1.64 {ratio} <2.54 [facility] Cholesterol in VLDL [Mass/Vol] 33 mg/dL High <30 mg/dL [facility] Cholesterol non HDL [Mass/Vol] 125 mg/dL <130 mg/dL [facility] Cholesterol.total/C holesterol in HDL [Mass ratio] 3.23 {ratio} <5.10 [facility] Fasting Time 12 hrs [facility] Triglyceride [Mass/Vol] 166 mg/dL High <150 mg/dL [facility] PROLACTIN [facility] 03-09-2022 Prolactin [Mass/Vol] 5.8 ng/mL 4.5 - 26.8 ng/mL [facility] T3 FREE [facility] 03-09-2022 Free T3 [Mass/Vol] 2.9 pg/mL 2.3 - 4.1 pg/mL [facility] T4 FREE/FREE THYROXon 2021 Free T4 [Mass/Vol] 1.1 ng/dL 0.9 - 1.7 ng/dL [facility] TSH BLDon 03-09-2022 TSH Qn 1.910 m[IU]/L 0.270 - 4.200 mIU/L [facility] UA DIP, URINE (POC)on 2021 BILIRUBIN UA (POCT) Negative Negative [facility] CLARITY UA (POCT) Clear [facility] COLOR UA (POCT) Yellow [facility] GLUCOSE UA (POCT) Negative Negative mg/dL [facility] HEMOGLOBIN/BLOOD UA (POCT) Trace-intact Abnormal Negative [facility] KETONE UA (POCT) Negative Negative mg/dL [facility] LEUKOCYTES UA (POCT) Negative Negative [facility] NITRITE UA (POCT) Negative Negative [facility] PH UA (POCT) 5.5 4.5 - 8.0 [facility] Protein Ql (U) Negative Negative mg/dL [facility] SPECIFIC GRAVITY UA (POCT) >=1.030 1.005 - 1.030 [facility] UROBILINOGEN UA (POCT) 0.2 E.U./dL Normal E.U./dL [facility] CNPNon 07-21-2021 CNPN Telephone (SANDIFV) -------- BUTCH KELLY ([id number]) 1980 F Date Time Provider Department 07/21/21 JAN ESPINOZA During your visit today, we recorded the following information about you: Leno Hannah Team Ldr 07/21/2021 11:16 AM Signed Faxed prior auth uploaded to [employer]. Negin De Jesus RN 07/21/2021 1:21 PM Signed Scan on 07/20/2021 ?5:08 PM by External Provider: Insurance Negin De Jesus RN 07/22/2021 9:44 AM Signed Pharmacy Benefits BUTCH KELLY ?- ?[employer] ([employer]UM[employer]IRX) Covered: Retail, Mail Order ?? Unknown: Specialty, Long-Term Care Group ID: [id number] Group name: YONI: [id number] PCN: IRX : 1980 Legal sex: F Address: [address] [place] [id number] Migraine without aura and without status migrainosus, not intractable (G43.009 ) Sinus headache (R51.9) Attempted to do PA via CMM:Additional Information Required [facility] does not handle this review. Please call [facility] at or email [email or web address] Called the above # and spoke with Melisa Engle. She advised that this Rx does not need a PA, it is a step therapy. She will send me the information of what she needs to try first. Negin De Jesus RN 07/27/2021 3:00 PM Signed There is a MyChart discussing this. Allergies As of Date: 07/21/2021 (No Known Allergies) Date Reviewed: 07/08/2021 Reviewed by: Linnea Potts Ma - Fully Assessed Reason for Visit: Insurance Authorization [[id number]] Prescriptions as of 07/27/2021 - ZOLMitriptan (ZOMIG) 5 mg nasal spray at onset of migraine headache.May repeat after 2 hrs if needed.Max dose is 10 mg in 24 hrs.One spray in one nostril. - halobetasol propionate (ULTRAVATE) 0.05 % ointment - ibuprofen (MOTRIN ORAL) 0 Refill(s) - Bismuth Subsalicylate (PEPTO-BISMOL) 262 mg tab Take by mouth. - loperamide HCl (IMODIUM A-D) 2 mg tab Take 2 mg by mouth as needed. - cholestyramine-sucrose (QUESTRAN) 4 gram powder Take 4 g by mouth twice daily with meals. Problem List As Of Date: 07/21/2021 (None) Encounter Status:Closed by NEGIN DE JESUS on 07/27/21 [facility] ANES POSTPROC EVALon 021 ANES POSTPROC EVAL HNO ID: [id number] Author: Zach Xavier DO Service: Anesthesiology Author Type: Physician Type: Anesthesia Postprocedure Evaluation Filed: 05/27/2021 5:38 PM Note Text: POST ANESTHESIA EVALUATION NOTE : 1980 Procedure Summary Date: 05/27/21 Room / Location: [facility] 23 / [facility] Anesthesia Start: 08 Anesthesia Stop: 09 Procedures: EGD (Left Abdomen) COLONOSCOPY (Left Abdomen) EGD WITH BIOPSY (Left Abdomen) COLONOSCOPY WITH BIOPSY (Left Abdomen) Diagnosis: Diarrhea, unspecified type (Diarrhea, unspecified type [R19.7]) Surgeons: Narda Jeffers MD Responsible Provider: Zach Xavier DO Anesthesia Type: MAC ASA Status: 2 Anesthesia Type: MAC Last vitals Vitals Value Taken Time BP 106/77 05/27/21 0948 Temp 36.3 ?C (97.3 ?F) 05/27/21 0859 Pulse 80 05/27/21 0948 Resp 18 05/27/21 0948 SpO2 100 % 05/27/21 0948 Post Anesthesia Patient Status Patient Evaluation: PACU. PACU/ICU Patient Condition: stable. Anticipated Disposition: phase 2 then home. Neurological Status: aware and responsive. Pulmonary Status: breathing comfortably on room air Airway Control: returned to baseline unsupported. Cardiovascular Status: stable. Pain Management: clinically adequate Postoperative Hydration: acceptable. Intraoperative Events: no significant anesthesia events Post Operative Nausea/Vomiting Status: no significant post operative nausea or vomiting Anesthetic Observations: Recommendation: continue current plan of care. Anesthesia Observations No Documentation SIGNATURE: Zach Xavier DO PATIENT NAME: Butch Kelly DATE: May 27, 2021 TIME: 5:38 PM CSN: [id number] [facility] ANES PRE-OPon 05-27-2021 ANES PRE-OP HNO ID: [id number] Author: Zach Xavier DO Service: Anesthesiology Author Type: Physician Type: Anesthesia Preprocedure Evaluation Filed: 05/27/2021 7:57 AM Note Text: ANESTHESIOLOGY DAY OF SURGERY NOTE : 1980 Procedure(s) (LRB): EGD (Left) COLONOSCOPY (Left) Surgeon(s): Narda Jeffers MD Estimated body mass index is 28.25 kg/m? as calculated from the following: Height as of this encounter: 167.6 cm (5' 6 ). Weight as of this encounter: 79.4 kg (175 lb). Most recent hematocrit and potassium results: Hematocrit 34.5 04/12/2011 Potassium 4.3 04/15/2011 Relevant Problems No relevant active problems I - PHYSICAL EVALUATION AIRWAY Patient intubated: No. Tracheostomy tube not present Mallampati: I. TM distance: >3 FB. Neck ROM: full ROM without neurological symptoms. Mouth opening: adequate. Short neck: no. Thick neck: no DENTAL Dental findings: teeth intact. Additional exam findings: no II - ANESTHESIA PLAN ASA Score: 2 Anesthetic Plan: MAC The patient is not a current smoker. NPO Status: adequate Monitoring plan: standard ASA. Postoperative analgesic plan: other. Patient / Surrogate agrees to blood products: blood products not planned Significant changes in the patient condition since the History and Physical, not otherwise documented in primary service progress note: no. Potential Anesthesia issues that may suggest increased risk of complications or contraindication to planned procedure: none. Vitals Value Taken Time BP 107/70 05/27/2141 Pulse 70 05/27/21735 Resp 16 05/27/21735 Temp 36.6 ?C (97.8 ?F) 05/27/21735 SpO2 97 % 05/27/21735 Facility-Administered Medications as of 05/27/2021 Medication Dose Route Frequency - lactated ringers iv infusion 5-30 mL/hr INTRAVENOUS CONTINUOUS Outpatient Medications as of 05/27/2021 Medication Sig - peg 3350-Electrolytes (GOLYTELY) 236-22.74-6.74 -5.86 gram suspension REFER TO PRINTED PATIENT INSTRUCTIONS THAT WILL BE MAILED TO YOU I have interviewed and examined the patient. I have reviewed the medical record and/or the pre-anesthesia evaluation, pertinent labs, and test results. This contains updated information obtained within 48 hours of Surgery/Procedure. SIGNATURE: Zach Xavier DO PATIENT NAME: Butch Kelly DATE: May 27, 2021 TIME: 7:56 AM CSN: [id number] [facility] HCG ( test) Ql (U)o n 05-27-2021 Specific gravity (U) [Rel density] 1.020 Normal 1.005-1.030 [facility] Comment on above: Order Comment: Speci men Type: URINE SPECIMEN Result Comment: If s pecific gravity is <1.005 then results may be falsely negative. Serum HCG is recommended. Performed By: #### 2 106-3 #### [facility] CLIA [id number] [address] HCG Preg Ur Qlon 05-27-2021 HCG ( test) Ql (U) Negative Normal Negative [facility] Comment on above: Order Comment: Speci men Type: URINE SPECIMEN Result Comment: This test is intended to aid in the early detection of . Very dilute urine samples, as indicated by a low specific gravity, may not contain roofing sales representative levels of hCG. This test detects intact hCG only. This test does not reliably detect hCG degradation products, including free-beta subunit and beta-core fragment. Therefore, this test may show reduced reactivity in urine after 8 weeks gestation. A number of conditions other than , including trophoblastic disease and certain non-trophoblastic neoplasms cause elevated levels of hCG. As with any assay employing mouse antibodies, the possibility exists for interference by human anti-mouse antibodies (HAMA) in the specimen. The test provides a presumptive diagnosis for . Performed By: #### 2 106-3 #### [facility] CLIA [id number] [address] [place] [address] OF [facility] HISTORY PHYSICALon HISTORY PHYSICAL HNO ID: [id number] Author: Kenyatta Saini APRN.SUPPLIER MANAGER Service: Anesthesiology Author Type: Nurse Practitioner Type: HANDP Filed: 05/27/2021 8:01 AM Note Text: HISTORY AND PHYSICAL EXAMINATION Patient: Butch Kelly : 1980 SERVICE DATE: 05/27/2021 SERVICE TIME: 7:19 AM PRIMARY CARE PHYSICIAN: Maria Fernanda Barrientos MD SURGEON: Surgeon(s) and Role: * Narda Jeffers MD - Primary ANESTHESIA: Monitored Anesthesia Care DIAGNOSIS: Diarrhea, unspecified type [R19.7] PROCEDURE: Procedure(s): EGD (Left) COLONOSCOPY (Left) Subjective CHIEF COMPLAINT: EGD and colonoscopy HPI: This is a 40-year-old female who presents for EGD and colonoscopy. Prior colonoscopy age 19. No prior EGD. Has severe abdominal cramping and diarrhea when she eats. She has tried Imodium and pepto which has not helped with diarrhea. She is lactose intolerant. Denies heartburn, indigestion or dysphagia. METS: Climb a flight of stairs or walk up a hill (5.50 METs) Patient denies any chest pain or shortness of breath with above physical activity. FUNCTIONAL STATUS: Independent PAST MEDICAL HISTORY Diagnosis Date - Cephalgia - Pseudotumor cerebri - Pyelonephritis PAST SURGICAL HISTORY Procedure Laterality Date - APPENDECTOMY 1999 - PAST SURGICAL HISTORY OF 2005 Sinus surgery FAMILY HISTORY Problem Relation Age of Onset - No Known Problems Mother - Hypertension Father - No Known Problems Sister - No Known Problems Brother - No Known Problems Brother - Alzheimer's Disease Maternal Grandmother - Arthritis Daughter Social History Tobacco Use - Smoking status: Never Smoker - Smokeless tobacco: Never Used Vaping Use - Vaping Use: Never used Substance Use Topics - Alcohol use: No - Drug use: No Prior to Admission medications as of 05/27/21 0751 Medication Sig Last Dose Taking peg 3350-Electrolytes (GOLYTELY) 236-22.74-6.74 -5.86 gram suspension REFER TO PRINTED PATIENT INSTRUCTIONS THAT WILL BE MAILED TO YOU Unknown at Unknown time ALLERGIES No Known Allergies COMPLETE REVIEW OF SYSTEMS: GENERAL: No weight loss, malaise or fevers RESPIRATORY: Denies JESSICA, coughing, wheezing or SOB CARDIOVASCULAR: Denies chest pain, palpitations, or CHF GI: Denies abdominal pain, nausea or vomiting : Denies urinary complaints 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: 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 HCG in preop today negative MUSCULOSKELETAL: Denies joint pain, muscle pain, or back pain PSYCH: Denies anxiety, depression, sleep disturbance, or mood disorder ENDOCRINE: Denies DM or thyroid problems NEURO: Hx pseudotumor cerebri with multiple procedures HEME/ONC: Denies cancer or bleeding/clotting disorders Objective PHYSICAL EXAM: CONSTITUTIONAL: Well-developed, NAD MENTAL STATUS: alert, oriented to person, place and time SKIN: Warm, dry, no diaphoresis HEENT: Normocephalic, atraumatic, no lymphadenopathy LUNGS: Lungs clear to auscultation, Good diaphragmatic excursion CARDIAC: RRR no murmur ABDOMEN: Abdomen soft, non-tender, BS x 4 EXTREMITIES: Extremities normal, no deformities, edema, clubbing or skin discoloration. 05/27/2173505/27/21740 BP: 107/70 Pulse: 70 Resp: 16 Temp: 36.6 ?C (97.8 ?F) TempSrc: Tympanic SpO2: 97% Weight: 79.4 kg (175 lb) Height: 167.6 cm (5' 6 ) Body mass index is 28.25 kg/m?. ANESTHESIA FINDINGS: Intubation History: No history of difficult intubation. Significant anesthesia considerations: None. FAMILY PROBLEMS WITH ANESTHESIA: No history of adverse anesthetic event Assessment/Plan Patient has the following medical conditions which may affect arnav-operative course: Hx pseudotumor cerebri SIGNATURE: Kenyatta Saini APRN.CNP PATIENT NAME: Butch Kelly DATE: May 27, 2021 TIME: 7:19 AM PAGER/CONTACT #: [facility] OPERATIVE NOon 05-27-2021 OPERATIVE NO HNO ID: [id number] Author: Narda Jeffers MD Service: Gastroenterology Author Type: Physician Type: Operative Report Filed: 05/27/2021 8:57 AM Note Text: OPERATIVE/PROCEDURE REPORT LOG ID: [id number] Surgery/Procedure Date: 05/27/2021 Incision/Procedure Start Time: 8:29 AM Incision Close/Procedure End Time: 8:53 AM Surgeon(s)/Proceduralist (s) and Automobile Contract Clerk(s): Surgeon(s) and Role: * Narda Jeffers MD - Primary No Additional Staff Procedure(s): Esophagogastroduodenosco py (EGD) with biopsy Colonoscopy with biopsy Anesthesia: Monitored Anesthesia Care Brief History: 40-year-old female who presented for EGD and colonoscopy to evaluate chronic diarrhea Procedure Details: The patient was placed in the left lateral decubitus position. A bite block was placed and medications administered as above. The Olympus gastroscope was used to intubate the oropharynx and esophagus with ease. Esophagus- No strictures; mucosa unremarkable; Z-line was irregular at 37 cm Stomach- Cardia- No masses Body- normal Antrum-mild erythema consistent with gastropathy status post biopsy Fundus (during retroflexion)- normal Duodenum- Bulb- normal; Second part- normal. Biopsies obtained The scope was then withdrawn and the patient tolerated the procedure well. Biopsies were taken to rule out H. Pylori. The patient was placed in the left lateral decubitus position. A digital rectal exam was performed and this was normal. The Olympus colonoscope was introduced into the rectum and advanced to the cecum. The procedure was not technically difficult. The cecum was identified by the appendiceal orifice and the ileocecal valve. The bowel preparation was good . The scope was then slowly withdrawn and the mucosal folds examined in detail. Cecum- Prep- good; Polyps- none Ascending colon- Polyps- none; Hepatic flexure- Polyps- none; Transverse colon- Polyps- none; Splenic flexure- Polyps- none Descending colon- Polyps- none; Sigmoid colon- Polyps- none; Rectum- Polyps- none; Retroflexion- hemorrhoids small External exam: Lax anal sphincter Random biopsies obtained from the colon to work-up for possible microscopic colitis Pre-Op/Pre-Procedure Diagnosis: Chronic diarrhea Post-Op/Post-Procedure Diagnosis: Irregular Z-line Distal gastropathy. Lax anal sphincter Biopsies taken from stomach, duodenum, and colon to rule out H. Pylori, celiac disease, and microscopic colitis. Specimens: See above EBL: None Complications: None Recommendations: Follow up pathology Continue current medications Further recommendations to be made after reviewing the results of the biopsies If the biopsies are negative, she might benefit from anorectal manometry No qualified resident/fellow was available. Narda Jeffers MD SIGNATURE: Narda Jeffers MD PATIENT NAME: Butch Kelly DATE: May 27, 2021 TIME: 8:54 AM PAGER/CONTACT #: [phone] [facility] SURGICAL PATHOLOGYon CASE REPORT [facility] Comment on above: Order Comment: Speci men Type: TISSUE SPECIMEN Result Comment: Surg [facility] Pathology Report Case: [id number] Authorizing Provider: Narda Jeffers MD Collected: 05/27/2021 08:34 AM Ordering Location: [facility] Received: 05/28/2021 03:09 AM Pathologist: Karina Cullen MD Specimens: A) - DUODENUM BIOPSY B) - STOMACH BIOPSY C) - COLON BIOPSY, Random Performed By: #### S #### [facility] CLIA [id number] [address] [place] [address] [facility] Comment on above: Order Comment: Speci men Type: TISSUE SPECIMEN Result Comment: A. D uodenal biopsy - No inflammatory process, villous abnormality or other diagnostic abnormality is identified. B. Gastric biopsy - Mild chronic gastritis. The Helicobacter pylori pattern of inflammation is not identified. C. Random colon biopsies - Benign colonic mucosa with no inflammatory process or other diagnostic abnormality identified. Performed By: #### S #### [facility] CLIA [id number] [address] [place] [address] FINAL PERFORMING LAB [facility] Comment on above: Order Comment: Speci men Type: TISSUE SPECIMEN Result Comment: Diag nostic interpretation performed at [facility], [address] [place] [address] CLIA# [id number] Nuclear Radiation Engineer: Gm Hodges M.D. Performed By: #### S #### [facility] CLIA [id number] [address] [place] [address] [facility] Comment on above: Order Comment: Speci men Type: TISSUE SPECIMEN Result Comment: A. D UODENUM BIOPSY. A. Received in formalin labeled duodenum biopsy are multiple irregular lopez soft tissue fragments aggregating to 0.3 x 0.3 x 0.2 cm. The specimen is submitted entirely in cassette A1. B. STOMACH BIOPSY. B. Received in formalin labeled stomach biopsy are 2 irregular lopez soft tissue fragments aggregating to 0.4 x 0.3 x 0.2 cm. The specimen is submitted entirely in cassette B1. C. COLON BIOPSY. C. Received in formalin labeled colon biopsy are multiple irregular lopez soft tissue fragments aggregating to 0.6 x 0.4 x 0.2 cm. The specimen is submitted entirely in cassette C1. Gross examination performed at [facility], [address] [place] [address] OLS May 28, 2021 7:58 AM Performed By: #### S #### [facility] CLIA [id number] [address] [place] [id number] [place] Vital Signs Date Time Vital Sign Value Performing Clinician Vel bettencourt 05-17-2024 00:13-0400 Diastolic Blood Pressure Non-Invasive 65 mm[Hg] DANIAL CHIANG MD [address] [place] [id number] 05-17-2024 00:13-0400 Heart rate 81 /min ADNIAL CHIANG MD [address] [place] [id number] 05-17-2024 00:13-0400 Respiratory rate 18 /min DANIAL CHIANG MD [address] [place] [id number] 05-17-2024 00:13-0400 Systolic Blood Pressure Non-Invasive 100 mm[Hg] DANIAL CHIANG MD [address] [place] [id number] 05-16-2024 23:19-0400 Body temperature 97.7 [degF] DANIAL CHIANG MD [address] 05-16-2024 23:19-0400 Body weight 88.6 kg DANIAL CHIANG MD [address] [place] [id number] 05-16-2024 23:19-0400 Diastolic Blood Pressure Non-Invasive 85 mm[Hg] DANIAL CHIANG MD [address] [place] [id number] 05-16-2024 23:19-0400 Heart rate 86 /min DANIAL CHIANG MD [address] [place] [id number] 05-16-2024 23:19-0400 Respiratory rate 18 /min DANIAL CHIANG MD [address] [place] [id number] 05-16-2024 23:19-0400 Systolic Blood Pressure Non-Invasive 127 mm[Hg] DANIAL CHIANG MD [facility] 05-14-2024 15:08-0400 Reason For Taking VItal Signs NIKHIL EDEN MD [facility] 05-14-2024 15:02-0400 Blood Pressure Cuff Size NIKHIL EDEN MD [facility] 05-14-2024 15:02-0400 Blood Pressure Location NIKHIL EDEN MD [facility] 05-14-2024 15:02-0400 Blood Pressure Method NIKHIL EDEN MD [facility] 05-14-2024 15:02-0400 Body temperature 98.24 [degF] NIKHIL EDEN MD [facility] 05-14-2024 15:02-0400 Diastolic Blood Pressure Non-Invasive 55 mm[Hg] NIKHIL EDEN MD [facility] 05-14-2024 15:02-0400 Heart rate 82 /min NIKHIL EDEN MD [facility] 05-14-2024 15:02-0400 Respiratory rate 18 /min NIKHIL EDEN MD [facility] 05-14-2024 15:02-0400 Systolic Blood Pressure Non-Invasive 88 mm[Hg] NIKHIL EDEN MD [facility] 05-14-2024 12:29-0400 Reason For Taking VItal Signs NIKHIL EDEN MD [facility] 05-14-2024 11:55-0400 Blood Pressure Cuff Size NIKHIL EDEN MD [facility] 05-14-2024 11:55-0400 Blood Pressure Location NIKHIL EDEN MD [facility] 05-14-2024 11:55-0400 Blood Pressure Method NIKHIL EDEN MD [facility] 05-14-2024 11:55-0400 Diastolic Blood Pressure Non-Invasive 48 mm[Hg] NIKHIL EDEN MD [facility] 05-14-2024 11:55-0400 Systolic Blood Pressure Non-Invasive 88 mm[Hg] NIKHIL EDEN MD [facility] 09-24-2024 11:54-0400 Body temperature 98.24 [degF] NIKHIL EDEN MD [facility] 05-14-2024 11:54-0400 Heart rate 95 /min NIKHIL EDEN MD [facility] 05-14-2024 11:54-0400 Respiratory rate 18 /min NIKHIL EDEN MD [facility] 05-14-2024 10:03-0400 Reason For Taking VItal Signs NIKHIL EDEN MD [facility] 05-14-2024 06:56-0400 Blood Pressure Cuff Size NIKHIL EDEN MD [facility] 05-14-2024 06:56-0400 Blood Pressure Location NIKHIL EDEN MD [facility] 05-14-2024 06:56-0400 Blood Pressure Method NIKHIL EDEN MD [facility] 05-14-2024 06:56-0400 Body temperature 98.06 [degF] NIKHIL EDEN MD [facility] 05-14-2024 06:56-0400 Diastolic Blood Pressure Non-Invasive 56 mm[Hg] NIKHIL EDEN MD [facility] 05-14-2024 06:56-0400 Heart rate 84 /min NIKHIL EDEN MD [facility] 05-14-2024 06:56-0400 Respiratory rate 18 /min NIKHIL DEEN MD [facility] 05-14-2024 06:56-0400 Systolic Blood Pressure Non-Invasive 89 mm[Hg] NIKHIL EDEN MD [facility] 05-13-2024 20:16-0400 Body height 167.6 cm NIKHIL EDEN MD [facility] 05-13-2024 20:16-0400 Body weight 84.8 kg NIKHIL EDEN MD [facility] 05-13-2024 20:16-0400 Body weight 30.19 kg/m2 NIKHIL EDEN MD [facility] 05-13-2024 19:25-0400 Body temperature 97.88 [degF] NIKHIL EDEN MD [facility] 05-13-2024 19:01-0400 Body temperature 96.98 [degF] NIKHIL EDEN MD [facility] 05-13-2024 19:01-0400 Heart rate 80 /min NIKHIL EDEN MD [facility] 05-13-2024 19:01-0400 Mean blood pressure 69 mm[Hg] NIKHIL EDEN MD [facility] 05-13-2024 18:55-0400 Body temperature 96.98 [degF] NIKHIL EDEN MD [facility] 05-13-2024 18:55-0400 Heart rate 66 /min NIKHIL EDEN MD [facility] 05-13-2024 18:55-0400 Mean blood pressure 68 mm[Hg] NIKHIL EDEN MD [facility] 05-13-2024 18:45-0400 Body temperature 96.98 [degF] NIKHIL EDEN MD [facility] 05-13-2024 18:45-0400 Heart rate 64 /min NIKHIL EDEN MD [facility] 05-13-2024 18:45-0400 Mean blood pressure 71 mm[Hg] NIKHIL EDEN MD [facility] 05-13-2024 16:45-0400 Respiratory Rate - Anes 3 br/min NIKHIL EDEN MD [facility] 05-13-2024 16:40-0400 Respiratory Rate - Anes 18 br/min NIKHIL EDEN MD [facility] 05-13-2024 16:35-0400 Respiratory Rate - Anes 29 br/min NIKHIL EDEN MD [facility] 05-13-2024 16:25-0400 Body temperature 99.14 [degF] NIKHIL EDEN MD [facility] 05-13-2024 16:20-0400 Body temperature 99.01 [degF] NIKHIL EDEN MD [facility] 05-13-2024 16:15-0400 Body temperature 98.94 [degF] NIKHIL EDEN MD [facility] 05-13-2024 09:30-0400 Body height 167.6 cm NIKHIL EDEN MD [facility] 05-13-2024 09:30-0400 Body weight 84.8 kg NIKHIL EDEN MD [facility] 05-13-2024 09:30-0400 Heart rate 80 /min NIKHIL EDEN MD [facility] 04-25-2024 10:16-0400 Blood Pressure Cuff Size NIKHIL EDEN MD [facility] 04-25-2024 10:16-0400 Blood Pressure Location NIKHIL EDEN MD [facility] 04-25-2024 10:16-0400 Blood Pressure Method NIKHIL EDEN MD [facility] 04-25-2024 10:16-0400 Body height 167 cm NIKHIL EDEN MD [facility] 04-25-2024 10:16-0400 Body temperature 97.88 [degF] NIKHIL EDEN MD [facility] 04-25-2024 10:16-0400 Body weight 87.2 kg NIKHIL EDEN MD [facility] 04-25-2024 10:16-0400 Diastolic Blood Pressure Non-Invasive 75 mm[Hg] NIKHIL EDEN MD [facility] 04-25-2024 10:16-0400 Heart rate 82 /min NIKHIL EDEN MD [facility] 04-25-2024 10:16-0400 Systolic Blood Pressure Non-Invasive 109 mm[Hg] NIKHIL EDEN MD [facility] [place] 12-26-2023 09:12-0400 Body mass index (BMI) [Ratio] 32.22 kg/m2 Deborah Rasmussen APRN.CNM Work Phone: [facility] 12-26-2023 09:12-0400 Body weight 90.54 kg Deborah Rasmussen APRN.CNM Work Phone: [facility] 12-26-2023 09:12-0400 Diastolic blood pressure 72 mm[Hg] Deborah Rasmussen APRN.CNM Work Phone: [facility] 12-26-2023 09:12-0400 Systolic blood pressure 120 mm[Hg] Deborah Rasmussen APRN.CNM Work Phone: [facility] 12-11-2023 08:01-0400 Body mass index (BMI) [Ratio] 31.83 kg/m2 Deborah Rasmussen APRN.CNM Work Phone: [facility] 12-11-2023 08:01-0400 Body weight 89.45 kg Deborah Rasmussen APRN.CNM Work Phone: [facility] 12-11-2023 08:01-0400 Diastolic blood pressure 74 mm[Hg] Deborah Rasmussen APRN.CNM Work Phone: [facility] 12-11-2023 08:01-0400 Systolic blood pressure 116 mm[Hg] Deborah Grady MORELOS.CNM Work Phone: [facility] 10-31-2023 15:15-0400 Diastolic Blood Pressure Non-Invasive 74 mm[Hg] DR MAIRA CHIANG MD [facility] 10-31-2023 15:15-0400 Heart rate 73 /min DR MAIRA CHIANG MD [facility] 10-31-2023 15:15-0400 Respiratory rate 15 /min DR MAIRA CHIANG MD [facility] 10-31-2023 15:15-0400 Systolic Blood Pressure Non-Invasive 115 mm[Hg] DR MAIRA CHIANG MD [facility] 10-31-2023 12:58-0400 Diastolic Blood Pressure Non-Invasive 76 mm[Hg] DR MAIRA CHIANG MD [facility] 10-31-2023 12:58-0400 Heart rate 76 /min DR MAIRA CHIANG MD [facility] 10-31-2023 12:58-0400 Respiratory rate 16 /min DR MAIRA CHIANG MD [facility] 10-31-2023 12:58-0400 Systolic Blood Pressure Non-Invasive 111 mm[Hg] DR MAIRA CHIANG MD [facility] 10-31-2023 11:42-0400 Body temperature 96.98 [degF] DR MAIRA CHIANG MD [facility] 10-31-2023 11:42-0400 Body weight [address] MAIRA CHIANG MD [facility] 10-31-2023 11:42-0400 Diastolic Blood Pressure Non-Invasive 63 mm[Hg] DR MAIRA CHIANG MD [facility] 10-31-2023 11:42-0400 Heart rate 108 /min DR MAIRA CHIANG MD [facility] 10-31-2023 11:42-0400 Respiratory rate 24 /min DR MAIRA CHIANG MD [facility] 10-31-2023 11:42-0400 Systolic Blood Pressure Non-Invasive 129 mm[Hg] DR MAIRA CHIANG MD [facility] 09-22-2022 11:15-0500 Diastolic blood pressure 64 mm[Hg] Meme Mehta MD Work Phone: [facility] 09-22-2022 11:15-0500 Systolic blood pressure 100 mm[Hg] Meme Mehta MD Work Phone: [facility] 08-17-2022 09:21-0500 Body weight 82.56 kg Meme Mehta MD Work Phone: [facility] 08-17-2022 09:21-0500 Diastolic blood pressure 64 mm[Hg] Meme Mehta MD Work Phone: [facility] 08-17-2022 09:21-0500 Systolic blood pressure 110 mm[Hg] Meme Mehta MD Work Phone: [facility] 06-16-2022 14:10-0400 Body weight 83.46 kg Deborah Rasmussen EDUCATION ADMINISTRATIVE ASSISTANT.CNM Work Phone: [facility] 06-16-2022 14:10-0400 Diastolic blood pressure 68 mm[Hg] Deborah Rasmussen EDUCATION ADMINISTRATIVE ASSISTANT.CNM Work Phone: [facility] 06-16-2022 14:10-0400 Systolic blood pressure 112 mm[Hg] Deborah Rasmussen EDUCATION ADMINISTRATIVE ASSISTANT.CNM Work Phone: [facility] 05-17-2022 09:34-0400 Body weight 80.29 kg Deborah Rasmussen EDUCATION ADMINISTRATIVE ASSISTANT.CNM Work Phone: [facility] 05-17-2022 09:34-0400 Diastolic blood pressure 68 mm[Hg] Deborah Rasmussen EDUCATION ADMINISTRATIVE ASSISTANT.CNM Work Phone: [facility] 05-17-2022 09:34-0400 Systolic blood pressure 110 mm[Hg] Deborah Rasmussen EDUCATION ADMINISTRATIVE ASSISTANT.CNM Work Phone: [facility] 03-11-2022 10:56-0400 Body weight 81.19 kg Deborah Rasmussen EDUCATION ADMINISTRATIVE ASSISTANT.CNM Work Phone: [facility] 03-11-2022 10:56-0400 Diastolic blood pressure 78 mm[Hg] Deborah Rasmussen EDUCATION ADMINISTRATIVE ASSISTANT.CNM Work Phone: [facility] 03-11-2022 10:56-0400 Systolic blood pressure 112 mm[Hg] Deborah Rasmussen EDUCATION ADMINISTRATIVE ASSISTANT.CNM Work Phone: [facility] 03-09-2022 09:21-0400 Body height 167.6 cm Deborah Rasmussen EDUCATION ADMINISTRATIVE ASSISTANT.CNM Work Phone: [facility] 03-09-2022 09:21-0400 Body weight 81.19 kg Deborah Rasmussen EDUCATION ADMINISTRATIVE ASSISTANT.CNM Work Phone: [facility] 03-09-2022 09:21-0400 Diastolic blood pressure 80 mm[Hg] Deborah Rasmussen EDUCATION ADMINISTRATIVE ASSISTANT.CNM Work Phone: [facility] 03-09-2022 09:21-0400 Systolic blood pressure 110 mm[Hg] Deborah Rasmussen EDUCATION ADMINISTRATIVE ASSISTANT.CNM Work Phone: [facility] Encounters Encounter Date Encounter Type Care Provider Facility Start: 05-28-2024 End: 05-28-2024 ambulatory NIKHIL EDEN MD Facility:A Start: 05-28-2024 End: 05-28-2024 Patient encounter procedure NIKHIL EDEN MD [facility] Start: 05-16-2024 End: 05-17-2024 Emergency department patient visit DANIAL CHIANG MD [facility] Start: 05-13-2024 End: 05-14-2024 ambulatory JENNIFER SAMS MD Facility:A Start: 05-13-2024 End: 05-14-2024 Observation NIKHIL EDEN MD [facility] Start: 04-25-2024 End: 04-25-2024 Admission to establishment NIKHIL EDEN MD [facility] Start: 04-25-2024 End: 04-25-[address] MARIA FERNANDA BARRIENTOS MD Facility:A Start: 04-25-2024 End: 04-25-2024 ambulatory NIKHIL EDEN MD Facility:A Start: 04-25-2024 End: 04-25-2024 Patient encounter procedure NIKHIL EDEN MD [facility] Start: 02-08-2024 ambulatory NIKHIL EDEN Facility :A Start: 01-12-2024 ambulatory NIKHIL EDEN Facility :A Start: 01-09-2024 End: 01-09-2024 ambulatory NIKHIL EDEN Facility:A Start: 01-09-2024 End: 01-09-2024 Patient encounter procedure NIKHIL EDEN MD [facility] Start: 12-27-2023 Telephone encounter Deborah lopez APRN.CNM Work Phone: OB/Gynecology Start: 12-26-2023 End: 12-27-2023 ambulatory MARIA FERNANDA BARRIENTOS Facility:[facility] Start: 12-26-2023 End: 12-26-2023 Patient encounter procedure Deborah Rasmussen APRN.CNM Work Phone: OB/Gynecology Comment on above: Menorrhagia with reg ular cycle (Primary Dx); Pelvic pain in female; Endometrioma; Endometrial polyp; Cystocele, midline; Rectocele Start: 12-22-2023 Telephone encounter Deborah lopez APRN.CNM Work Phone: OB/Gynecology Comment on above: Orders Start: 12-11-2023 End: 12-12-2023 ambulatory MARIA FERNANDA BARRIENTOS Facility:[facility] Start: 12-11-2023 Encounter for gynecological examination (general) (routine) with abnormal findings DEBORAH RASMUSSEN [facility] Start: 12-11-2023 End: 12-11-2023 Manual pelvic examination Ob Ultrasound Work Phone: OB/Gynecology Comment on above: Pelvic Pain Start: 12-11-2023 End: 12-11-2023 Patient encounter procedure Ballet Professor [facility] Work Phone: OB/Gynecology Comment on above: Encounter for gyneco logical examination (general) (routine) with abnormal findings (Primary Dx); Screening for cervical cancer; Encounter for screening for human papillomavirus (HPV); Encounter for screening mammogram for breast cancer; Dense breast tissue; Unintended weight gain; Menorrhagia with regular cycle; IUD check up; Pelvic pain in female Start: 12-11-2023 End: 12-11-2023 Patient encounter status Deborah Rasmussen APRN.CNM Work Phone: [facility] Work Phone: Start: 11-24-2023 ambulatory Deborah Rasmussen APRN.CNM Work Phone: OB/Gynecology Comment on above: Visit Start: 10-31-2023 End: 10-31-2023 Emergency department patient visit DR MAIRA CHIANG MD [facility] Start: 03-24-2023 ambulatory SELF SELF Facility:[facility] Start: 01-23-2023 End: 01-23-2023 Patient encounter procedure JAGJIT HORN PA-C [facility] Start: 09-22-2022 End: 09-22-2022 ambulatory Ob Ultrasound Work Phone: OB/Gynecology Start: 09-22-2022 End: 09-22-2022 Patient encounter procedure Meme Mehta MD Work Phone: OB/Gynecology Comment on above: Surveillance of prev iously prescribed intrauterine contraceptive device (Primary Dx) IUD (intrauterine de vice) in place (Primary Dx) Start: 08-17-2022 End: 08-17-2022 Patient encounter procedure Meme Mehta MD Work Phone: OB/Gynecology Comment on above: Encounter for IUD in sertion (Primary Dx); Encounter for IUD removal; Malpositioned intrauterine device (IUD), subsequent encounter; IUD (intrauterine device) in place; Abnormal uterine bleeding (AUB) Start: 06-17-2022 Telephone encounter Jan marie MD Work Phone: Neurology Comment on above: Medication Authoriza tion Start: 06-16-2022 End: 06-21-2022 Patient encounter procedure Deborah Rsamussen APRN.CNM Work Phone: OB/Gynecology Comment on above: Surveillance of prev iously prescribed intrauterine contraceptive device (Primary Dx); Intrauterine contraceptive device threads lost, initial encounter; Abnormal uterine bleeding (AUB) Malpositioned intrau terine device (IUD), sequela (Primary Dx) Start: 06-14-2022 ambulatory Deborah Rasmussen APRN.CNM Work Phone: OB/Gynecology Comment on above: appointmen Start: 05-18-2022 Telephone encounter Jan marie MD Work Phone: Neurology Comment on above: Medication Authoriza tion Start: 05-17-2022 End: 05-17-2022 Patient encounter procedure Deborah Rasmussen APRN.CNM Work Phone: OB/Gynecology Comment on above: Encounter for IUD in sertion (Primary Dx); Vaginal vault prolapse Start: 05-16-2022 ambulatory Jan rodas MD Work Phone: Neurology Comment on above: information Start: 05-16-2022 E-mail encounter fro m caregiver Jan Espinoza MD Work Phone: [facility] Start: 03-11-2022 End: 03-11-2022 Patient encounter procedure Deborah Rasmussen APRN.CNM Work Phone: OB/Gynecology Comment on above: Vulvar itching (Prim pardeep Dx); Bacterial vaginosis; Vaginal yeast infection; Herpes labialis Start: 03-09-2022 End: 03-09-2022 Patient encounter procedure Deborah Rasmussen APRN.CNM Work Phone: OB/Gynecology Comment on above: Encounter for gyneco logical examination (general) (routine) with abnormal findings (Primary Dx); Encounter for screening mammogram for breast cancer; Vaginal discharge; Screening for condition; Urinary urgency; Abnormal uterine bleeding (AUB); Oral herpes simplex infection; Vulvar itching; BV (bacterial vaginosis); Yeast vaginitis Start: 03-09-2022 End: 03-09-2022 Patient encounter status Deborah Rasmussen APRN.CNM Work Phone: OB/Gynecology Procedures Date Procedure Procedure Detail Performing Clinician Start: 12-26-2023 SURGICAL PATHOLOGY Ashly Rasmussen APRN.CNM Work Phone: Start: 12-26-2023 UA DIP,URINE HCG (POC) Deborah Rasmussen APRN.CNM Work Phone: Start: 12-11-2023 BACTERIAL VAGINOSIS NAAT Deborah Rasmussen APRN.CNM Work Phone: Start: 12-11-2023 Iadna trichomonas va ginalis amplified probe tech Deborah Rasmussen APRN.CNM Work Phone: Start: 12-11-2023 Us pelvic nonobstetr ic real-time image complete Deborah Rasmussen APRN.CNM Work Phone: Start: 09-22-2022 Us pelvic nonobstetr ic real-time image complete Meme Mehta MD Work Phone: Start: 08-17-2022 Urine test visual color cmprsn meths Meme Mehta MD Work Phone: Start: 05-17-2022 Mammography Deborah lopez APRN.CNM Work Phone: Start: 03-11-2022 Us pelvic nonobstetr ic real-time image complete Deborah Rasmussen APRN.CNM Work Phone: Start: 03-09-2022 BACTERIAL VAGINOSIS AMPLIFICATION Deborah Rasmussen APRN.CNM Work Phone: Start: 03-09-2022 Culture bacterial quanttative colony count urine Deborah Rasmussen APRN.CNM Work Phone: Start: 03-09-2022 Urnls dip stick/tabl et rgnt auto w/o microscopy Deborah Rasmussen APRN.CNM Work Phone: Start: 08-21-2003 Sinus septum (body structure) NIKHIL EDEN MD Appendectomy JAGJIT HORN PA-C Colonoscopy NIKHIL EDEN MD Plan of Treatment Date Care Activity Detail Author Start: 12-10-2028 Screening for malign ant neoplasm of cervix [facility] Start: 04-21-2024 Influenza vaccination Influenz a Vaccine (Season Ended) [facility] Start: 12-26-2023 End: 12-26-2023 Patient encounter procedure 12/26/2023 9:15 AM EDT Office Visit OB/Gynecology [address] [place] [id number] Deborah Rasmussen APRN.[facility] [address] [place] [address] [facility] OB/Gynecology Comment on above: [facility] Start: 12-11-2023 End: 03-11-2024 17-Hydroxyprogesterone [Mass/volume] in Serum or Plasma HYDROXYPROGESTERONE-17 Lab Routine Unintended weight gain Menorrhagia with regular cycle Expected: 12/11/2023, Expires: 03/11/2024 [facility] Comment on above: Expected: 12/11/2023 , Expires: 03/11/2024 Start: 12-11-2023 End: 03-11-2024 25-hydroxyvitamin D3 [Mass/volume] in Serum or Plasma VITAMIN D 25 HYDROXY Lab Routine Unintended weight gain Expected: 12/11/2023, Expires: 03/11/2024 [facility] Comment on above: Expected: 12/11/2023 , Expires: 03/11/2024 Start: 12-11-2023 End: 03-11-2024 CBC W Auto Differential panel - Blood COMPLETE BLOOD COUNT AND DIFFERENTIAL Lab Routine Unintended weight gain Expected: 12/11/2023, Expires: 03/11/2024 [facility] Comment on above: Expected: 12/11/2023 , Expires: 03/11/2024 Start: 12-11-2023 End: 03-11-2024 Comprehensive metabolic 2000 panel - Serum or Plasma COMPREHENSIVE METABOLIC PANEL Lab Routine Unintended weight gain Expected: 12/11/2023, Expires: 03/11/2024 [facility] Comment on above: Expected: 12/11/2023 , Expires: 03/11/2024 Start: 12-11-2023 End: 03-11-2024 DHEA-S BLD DHEA-S BLD Lab Routine Unintended weight gain Menorrhagia with regular cycle Expected: 12/11/2023, Expires: 03/11/2024 [facility] Comment on above: Expected: 12/11/2023 , Expires: 03/11/2024 Start: 12-11-2023 End: 03-11-2024 Hemoglobin A1c in Blood HEMOGLOBIN A1C Lab Routine Unintended weight gain Expected: 12/11/2023, Expires: 03/11/2024 [facility] Comment on above: Expected: 12/11/2023 , Expires: 03/11/2024 Start: 12-11-2023 End: 03-11-2024 Lipid 1996 panel - Serum or Plasma LIPID PANEL BASIC Lab Routine Unintended weight gain Expected: 12/11/2023, Expires: 03/11/2024 [facility] Comment on above: Expected: 12/11/2023 , Expires: 03/11/2024 Start: 12-11-2023 End: 03-11-2024 TESTOSTERONE, FREE AND TOTAL TESTOSTERONE, FREE AND TOTAL Lab Routine Unintended weight gain Menorrhagia with regular cycle Expected: 12/11/2023, Expires: 03/11/2024 [facility] Comment on above: Expected: 12/11/2023 , Expires: 03/11/2024 Start: 12-11-2023 End: 03-11-2024 Thyrotropin [Units/volume] in Serum or Plasma THYROID STIMULATING HORMONE Lab Routine Unintended weight gain Expected: 12/11/2023, Expires: 03/11/2024 [facility] Comment on above: Expected: 12/11/2023 , Expires: 03/11/2024 Start: 11-24-2023 End: 11-23-2024 US Pelvis PELVIC US WHI Anc Imaging Routine Pelvic pain in female Expected: 11/24/2023, Expires: 11/23/2024 [facility] Work Phone: Comment on above: Expected: 11/24/2023 , Expires: 11/23/2024 Start: 08-21-2023 Behavioral Health Screening Behavioral Health Screening [facility] Start: 06-18-2023 HPV TESTING HPV TESTING [facility] Start: 06-18-2023 PAP TESTING PAP TESTING [facility] Start: 06-18-2023 Screening for malign ant neoplasm of cervix [facility] Start: 05-17-2023 Mammography MAMMOGRAM [facility] Start: 05-17-2023 Screening for malign ant neoplasm of breast Mammogram Screening [facility] Start: 04-21-2023 Covid-19 Vaccine () Covid-19 Vaccine () [facility] Start: 08-21-2022 DEPRESSION ASSESSMENT DEPRESSION ASS ESSMENT [facility] Start: 08-17-2022 End: 08-17-2023 PELVIC US WHI PELVIC US WHI Anc Imaging Routine IUD (intrauterine device) in place Abnormal uterine bleeding (AUB) Expected: 08/17/2022, Expires: 08/17/2023 [facility] Work Phone: Comment on above: Expected: 08/17/2022 , Expires: 08/17/2023 Start: 06-16-2022 End: 06-16-2023 PELVIC US WHI PELVIC US WHI Anc Imaging Routine Surveillance of previously prescribed intrauterine contraceptive device Expected: 06/16/2022, Expires: 06/16/2023 [facility] Work Phone: Comment on above: Expected: 06/16/2022 , Expires: 06/16/2023 Start: 04-21-2022 Influenza vaccination INFLUENZA (#1) [facility] Start: 2021 Mammography MAMMOGRAM [facility] Start: 08-21-2021 DEPRESSION ASSESSMENT DEPRESSION ASS ESSMENT [facility] Start: 2000 Hepatitis B Vaccine (1 of 3 - 19+ 3-dose series) Hepatitis B Vaccine (1 of 3 - 19+ 3-dose series) [facility] Start: 2000 Urine microalbumin profile [facility] Start: 1999 HEPATITIS C SCREENING HEPATITIS C [facility] Start: 1999 Hepatitis C screening Hepatitis C [facility] Start: 1999 HIV SCREENING HIV SCREENING [facility] Start: 1999 HIV screening HIV Screening [facility] Start: 1993 Adult depression screening assessment DEPRESSION SCREENING [facility] Start: 04-03-1982 COVID-19 VACCINE (#1) COVID-19 VACCI NE (#1) [facility] Start: 1981 HEPATITIS B (1 of 3 - 3-dose series) HEPATITIS B (1 of 3 - 3-dose series) [facility] End: 01-09-2025 DBT Breast - bilateral screening [facility] SCREENING W [facility] Radiology Routine Encounter for screening mammogram for breast cancer Dense breast tissue 1 Occurrences starting 12/11/2023 until 01/09/2025 [facility] Work Phone: Comment on above: 1 Occurrences starti ng 12/11/2023 until 01/09/2025 Endometrial bx w/wo endocervix bx w/o dilat spx ENDOMETRIAL BIOPSY Procedures Routine Menorrhagia with regular cycle Pelvic pain in female Ordered: 12/26/2023 [facility] Work Phone: Comment on above: Ordered: 12/26/2023 HIGH RISK HUMAN PAPILLOMA VIRUS (HPV), PCR FOR DETECTION AND GENOTYPING HIGH RISK HUMAN PAPILLOMA VIRUS (HPV), PCR FOR DETECTION AND GENOTYPING Lab Routine Encounter for gynecological examination (general) (routine) with abnormal findings Screening for cervical cancer Encounter for screening for human papillomavirus (HPV) 12/11/2023 8:44 AM EDT [facility] Insertion intrauteri ne device iud INSERT INTRAUTERINE DEVICE Procedures Routine Encounter for IUD insertion Ordered: 05/17/2022 [facility] Work Phone: Comment on above: Ordered: 05/17/2022 PAP TEST PAP TEST Lab [facility]aya sai Encounter for gynecological examination (general) (routine) with abnormal findings Screening for cervical cancer Encounter for screening for human papillomavirus (HPV) 12/11/2023 8:44 AM EDT [facility] Removal intrauterine device iud REMOVE INTRAUTERINE DEVICE Procedures Routine Encounter for IUD removal Ordered: 08/17/2022 [facility] Work Phone: Comment on above: Ordered: 08/17/2022 End: 04-08-2023 Screening mammography bi 2-view breast inc cad [facility] SCREENING Radiology Routine Encounter for screening mammogram for breast cancer 1 Occurrences starting 03/09/2022 until 04/08/2023 [facility] Work Phone: Comment on above: 1 Occurrences starti ng 03/09/2022 until 04/08/2023 SURGICAL PATHOLOGY SURGICAL PATH OLOGY Lab Routine Vulvar itching 03/11/2022 12:08 PM EDT [facility] Work Phone: Urine test visual color cmprsn meths HCG QUAL UR B/O Lab Routine Encounter for IUD insertion Ordered: 05/17/2022 [facility] Work Phone: Comment on above: Ordered: 05/17/2022 [facility] Immunizations Immunization Date Immunization Notes Care Provider Fa bethany 08-03-2015 influenza virus vaccine, unspecified formulation Ob Ultrasound Work Phone: [facility] Payers Date Payer Category Payer Unknown [id number] 2021 Unknown [employer] [id number] 2021-Present [phone] [address] [place] [address] PPO [id number] 2021 Unknown [id number] 1981 Unknown [id number] 1981 Unknown [id number] 1981 Unknown [id number] 1981 Unknown [id number] 1981 Unknown [id number] 1981 Unknown [id number] 1981 Unknown [id number] 1981 Unknown [id number] 1981 Unknown [id number] 1981 Unknown [id number] Social History Date Type Detail Facility Start: 05-17-2022 End: 01-08-2024 Tobacco smoking status NVIS Never smoked tobacco [facility] Start: 03-11-2022 End: 12-26-2023 Alcohol intake Current non-drinker of alcohol (finding) [facility] Start: 1980 Sex Assigned At Not on file [facility] Start: 03-01-2022 End: 03-11-2022 Exposure to SARS-CoV-2 (event) Not sure [facility] Start: 09-09-2011 End: 05-17-2022 Tobacco use and exposure Smokeless tobacco non-user [facility] Sex Assigned At Sex [facility] Start: 09-22-2022 End: 12-26-2023 History of Social function [facility] Start: 09-22-2022 End: 12-26-2023 Tobacco use panel [facility] Adult Depression Scr eening Assessment 1 [facility] Medical Equipment Procedure Code Equipment Code Equipment Origin al Text Equipment Identifier Dates Vaginal Hysterec miryam Laparoscopic Unknown 05/13/24 Unknown Unknown FDA Start: 05-13-2024 Vaginal Hysterec miryam Laparoscopic Unknown 05/13/24 Unknown Unknown FDA Start: 05-13-2024 Vaginal Hysterec miryam Laparoscopic Unknown 05/13/24 Unknown Unknown FDA Start: 05-13-2024 Functional Status Date Assessment Result Facility 05-14-2024 Functional Status Nurse Safety Flor bush q2hrs Performed Other: 7am-d/c [facility] 05-14-2024 Functional Status Non-Slip footw ear, Room check performed [facility] 05-14-2024 Functional Status [facility] 05-14-2024 Functional Status Independent [facility] 05-14-2024 Functional Status Sequential Com pression Device bilateral knee high removed/off [facility] 05-14-2024 Functional Status [facility] 05-14-2024 Functional Status [facility] 05-13-2024 Functional Status Maintained [facility] 04-25-2024 Functional Status Sensory Deficits None [facility] 10-31-2023 Functional Status Independent [facility] 10-31-2023 Functional Status Repositions self [facility] Mental Status Date Assessment Result Facility 05-14-2024 Mental Status Orientation Oriented x 4 [facility] 05-13-2024 Mental Status [facility] 05-13-2024 Mental Status [facility] 05-13-2024 Mental Status Orientation Assessment Orie nted x 4 [facility] 10-31-2023 Mental Status Orientation Oriented x 4 [facility] 10-31-2023 Mental Status [facility] Clinical Notes 07-20-2021 to 05-29-2024 Telephone Encounter - Deborah Rasmussen APRN.CNM - 12/27/2023 10:03 PM EDTTelephone Encounter - Deborah Rasmussen APRN.CNM - 12/27/2023 10:03 PM EDTPatient InstructionsPatient Instructions Note Date & Type Note Facility 05-29-2024 Note . MICRO - Microbiology PROCEDURE: Urine Culture [*1] SOURCE: Urine, Clean Catch BODY SITE: COLLECTED DATE/TIME: 05/28/2024 14:07 EDT RECEIVED DATE/TIME: 05/28/2024 14:14 EDT START DATE/TIME: 05/28/2024 14:14 EDT FREE TEXT SOURCE: FINAL REPORTS Final Report [] Verified Date/Time/Personnel: 05/29/2024 14:00 EDT 50,000 - 100,000 cfu/ml Mixed growth consistent with normal urogenital erin. Performing Locations *1: This test was performed at: [facility], [address] [place] [address], [facility]- , [facility] 05-28-2024 Evaluation + Plan note Diagnostic Tests PendingUrine Culture 05/28/24 [facility] 05-14-2024 Hospital Discharge instructions Patient Education 05/14/2024 16:39:13 Cystoscopy Cystoscopy Cystoscopy is a procedure that is used to help diagnose and sometimes treat conditions that affect the lower urinary tract. The lower urinary tract includes the bladder and the urethra. The urethra is the tube that drains urine from the bladder. Cystoscopy is done using a thin, tube-shaped instrument with a light and camera at the end (cystoscope). The cystoscope may be hard or flexible, depending on the goal of the procedure. The cystoscope is inserted through the urethra, into the bladder. Cystoscopy may be recommended if you have: Urinary tract infections that keep coming back. Blood in the urine (hematuria). An inability to control when you urinate (urinary incontinence) or an overactive bladder. Unusual cells found in a urine sample. A blockage in the urethra, such as a urinary stone. Painful urination. An abnormality in the bladder found during an intravenous pyelogram (IVP) or CT scan. Cystoscopy may also be done to remove a sample of tissue to be examined under a microscope (biopsy). Tell a health care provider about: Any allergies you have. All medicines you are taking, including vitamins, herbs, eye drops, creams, and zinr-aqs-bddjehq medicines. Any problems you or family members have had with anesthetic medicines. Any blood disorders you have. Any surgeries you have had. Any medical conditions you have. Whether you are or may be . What are the risks? Generally, this is a safe procedure. However, problems may occur, including: Infection. Bleeding. Allergic reactions to medicines. Damage to other structures or organs. What happens before the procedure? Ask your health care provider about: ?Changing or stopping your regular medicines. This is especially important if you are taking diabetes medicines or blood thinners. ?Taking medicines such as aspirin and ibuprofen. These medicines can thin your blood. Do not take these medicines unless your health care provider tells you to take them. ?Taking bcun-csy-gmpirww medicines, vitamins, herbs, and supplements. Follow instructions from your health care provider about eating or drinking restrictions. Ask your health care provider what steps will be taken to help prevent infection. These may include: ?Washing skin with a germ-killing soap. ?Taking antibiotic medicine. You may have an exam or testing, such as: ? X-rays of the bladder, urethra, or kidneys. ?Urine tests to check for signs of infection. Plan to have someone take you home from the hospital or clinic. What happens during the procedure? You will be given one or more of the following: ?A medicine to help you relax (sedative). ?A medicine to numb the area (local anesthetic). The area around the opening of your urethra will be cleaned. The cystoscope will be passed through your urethra into your bladder. Germ-free (sterile) fluid will flow through the cystoscope to fill your bladder. The fluid will stretch your bladder so that your health care provider can clearly examine your bladder mahan. Your doctor will look at the urethra and bladder. Your doctor may take a biopsy or remove stones. The cystoscope will be removed, and your bladder will be emptied. The procedure may vary among health care providers and hospitals. What can I expect after the procedure? After the procedure, it is common to have: Some soreness or pain in your abdomen and urethra. Urinary symptoms. These include: ?Mild pain or burning when you urinate. Pain should stop within a few minutes after you urinate. This may last for up to 1 week. ?A small amount of blood in your urine for several days. ?Feeling like you need to urinate but producing only a small amount of urine. Follow these instructions at home: Medicines Take dthk-xql-nnfnlwa and prescription medicines only as told by your health care provider. If you were prescribed an antibiotic medicine, take it as told by your health care provider. Do not stop taking the antibiotic even if you start to feel better. General instructions Return to your normal activities as told by your health care provider. Ask your health care provider what activities are safe for you. Do not drive for 24 hours if you were given a sedative during your procedure. Watch for any blood in your urine. If the amount of blood in your urine increases, call your health care provider. Follow instructions from your health care provider about eating or drinking restrictions. If a tissue sample was removed for testing (biopsy) during your procedure, it is up to you to get your test results. Ask your health care provider, or the department that is doing the test, when your results will be ready. Drink enough fluid to keep your urine pale yellow. Keep all follow-up visits as told by your health care provider. This is important. Contact a health care provider if you: Have pain that gets worse or does not get better with medicine, especially pain when you urinate. Have trouble urinating. Have more blood in your urine. Get help right away if you: Have blood clots in your urine. Have abdominal pain. Have a fever or chills. Are unable to urinate. Summary Cystoscopy is a procedure that is used to help diagnose and sometimes treat conditions that affect the lower urinary tract. Cystoscopy is done using a thin, tube-shaped instrument with a light and camera at the end. After the procedure, it is common to have some soreness or pain in your abdomen and urethra. Watch for any blood in your urine. If the amount of blood in your urine increases, call your health care provider. If you were prescribed an antibiotic medicine, take it as told by your health care provider. Do not stop taking the antibiotic even if you start to feel better. This information is not intended to replace advice given to you by your health care provider. Make sure you discuss any questions you have with your health care provider. Document Released: 08/04/2001 Document Revised: 07/30/2019 Document Reviewed: 07/30/2019 [employer] Patient Education 2020 [employer]. 05/14/2024 16:38:56 Vaginal Hysterectomy, Care After Vaginal Hysterectomy, Care After Refer to this sheet in the next few weeks. These instructions provide you with information about caring for yourself after your procedure. Your health care provider may also give you more specific instructions. Your treatment has been planned according to current medical practices, but problems sometimes occur. Call your health care provider if you have any problems or questions after your procedure. What can I expect after the procedure? After the procedure, it is common to have: Pain. Soreness and numbness in your incision areas. Vaginal bleeding and discharge. Constipation. Temporary problems emptying the bladder. Feelings of sadness or other emotions. Follow these instructions at home: Medicines Take ispg-rzb-kikbrif and prescription medicines only as told by your health care provider. If you were prescribed an antibiotic medicine, take it as told by your health care provider. Do not stop taking the antibiotic even if you start to feel better. Do not drive or operate heavy machinery while taking prescription pain medicine. Activity Return to your normal activities as told by your health care provider. Ask your health care provider what activities are safe for you. Get regular exercise as told by your health care provider. You may be told to take short walks every day and go farther each time. Do not lift anything that is heavier than 10 lb (4.5 kg). General instructions Do not put anything in your vagina for 6 weeks after your surgery or as told by your health care provider. This includes tampons and douches. Do not have sex until your health care provider says you can. Do not take baths, swim, or use a hot tub until your health care provider approves. Drink enough fluid to keep your urine clear or pale yellow. Do not drive for 24 hours if you were given a sedative. Keep all follow-up visits as told by your health care provider. This is important. Contact a health care provider if: Your pain medicine is not helping. You have a fever. You have redness, swelling, or pain at your incision site. You have blood, pus, or a bad-smelling discharge from your vagina. You continue to have difficulty urinating. Get help right away if: You have severe abdominal or back pain. You have heavy bleeding from your vagina. You have chest pain or shortness of breath. This information is not intended to replace advice given to you by your health care provider. Make sure you discuss any questions you have with your health care provider. Document Released: 11/28/2016 Document Revised: 03/30/2017 Document Reviewed: 08/21/2016 [employer] Patient Education 2020 [employer]. 05/14/2024 16:38:15 8- Post Op 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 Surgery (07/2020)(CUSTOM) What to Do After Your Gynecology or Gynecology Oncology Surgery This sheet will give you general information on what to do when you are home after surgery. However, you should always follow any specific instructions given to you by your surgeon. Pain Medication Please follow the directions on the label of your medication and use your discharge medication list provided by the hospital. Do not take this medication on an empty stomach. This may cause a stomachache. Use a stool softener or gentle laxative (milk of magnesia) if needed. Constipation is not uncommon while taking oral pain medication. Use less of any narcotic pain medication as soon as your pain allows. You may take akoq-ouq-xjcqjsj pain medication if you no longer need your prescribed pain medication. Wida-wfq-ergvgjr pain medications are Tylenol (acetaminophen) or Advil (ibuprofen). Do not take Tylenol if you are still taking [place] or Percocet. They are the same type of medication. Too much acetaminophen can hurt your liver. Activity It is OK to use the stairs, but try to avoid them or take less trips right after surgery. After surgery, you may feel tired. Rest is important for healing. Slowly increase your activity level by walking and doing normal activities as you feel comfortable. Follow surgeon instructions on driving. You may not be able to drive for one to six weeks depending on what surgery and incisions you have. Do not drive while taking narcotic pain medication. They should be out of your system for 24 hours. Diet Eating smaller meals instead of three large meals is good. This may help with your appetite and nutrition. Good nutrition will help you heal. Follow diet instructions that you were taught after surgery. Infection Prevention Washing your hands is one of the best ways to prevent infection. Always wash your hands before and after touching your incision or dressing. Hands carry germs that can cause infections. Try not to touch your incision. Keep the Incision Clean Wear clean, loose-fitting clothes to prevent clothes from rubbing on the incision. Put clean sheets on your bed when you get home. Do not let other people or animals touch the incision. Showering You may start to shower 24 hours after your surgery. Use a clean washcloth and towel on your incision before you use it on any other area of your body. Adjust the shower spray to gentle and use warm water. Gently wash over your incision using antibacterial soap and water and pat it dry. Do not rub the incision. Do not soak or submerge in the bathtub or hot tub until your surgeon says it is OK. Wound Care When you go home, you may leave your incision(s) open to the air. Your incision(s) may be closed with sutures or tawana. If incision is closed with sutures under the skin, you do not need to have these removed as they will dissolve on their own. If incision is closed with tawana, the tawana will need to be removed. If your incision is horizontal (sideways), they need to be removed within three to seven days. If your incision is vertical (up and down), they need to be removed within 10 14 days. If you have thin white tape strips (Steri-Strips) over your incision, keep them dry. Do not remove them unless they begin curling up at the sides and are almost falling off or have been in place for seven days. If your incision begins coming apart, has drainage (thick, foul smelling, white, yellow, green, pink or red) with redness around the incision and feels warm to touch, call your surgeon. You may have an infection. Vaginal Care You may have drainage after surgery. Normal colors are watery, brown-black discharge. Vaginal spotting and bleeding are normal. However, if you are soaking two pads in one hour, that is not normal. Call your surgeon. No tampons or douching. NO SEXUAL INTERCOURSE FOR 6 WEEKS. Call Your Doctor If: Your pain is not controlled by pain medication. You have a fever of 100.4 degrees or higher. You have a lot of bleeding from the incision or a lot of vaginal bleeding (more than two pads per hour). You have bad stomach pain or you start throwing up. If you are unable to reach your doctor, go to the hospital. Follow Up If a follow-up appointment has not been made, please call your surgeon s office within a day. Let the office know if you have tawana and they will schedule them to be removed. Contact your surgeon for any specific problems or questions that you may have. Follow Up Care 01/09/2024 11:06:42 With:NIKHIL EDEN MD Address: [address] [place] [address] [place] [address]- When:05/28/2024 13:00:00 Comments:follow up [facility] 05-14-2024 Note Discharge Instructions Thank you for allowing [place] to assist you with your healthcare needs. The following is important discharge information regarding your hospital visit. Your Care Team MARIA FERNANDA BARRIENTOS MD Your Diagnosis Post-op pain What to do next Scheduled Follow-Up Appointments Appointment Type When With Where Contact Information StatusSO OV Post Op 05/28/2024 01:00 PM EDT NIKHIL EDEN MD [facility] [address] [place] [id number] Confirmed Follow Up Appointments Follow Up with NIKHIL EDEN MD When:05/28/2024 01:00 PM EDT Where:[address] [place] [address] [place] [address]- Additional Information: follow up The Following Activity and Diet Have Been Ordered for You Discharge Activity - Ordered -- Other, May shower, no tub baths, do not lift >20 pounds, no sexual intercourse for 6-8 weeks, you will be cleared at your post-op appointment, 05/14/24 15:52:00 EDT Discharge Diet - Ordered -- No changes were made to your diet during your hospital stay. Please resume your pre hospitalization diet on discharge., 05/14/24 15:52:00 EDT The Following Equipment Has Been Ordered for You No qualifying data available. The Following Treatments Have Been Ordered for You Discharge Labs No qualifying data available. Discharge Radiology No qualifying data available. Other Therapies No qualifying data available. Post Acute Orders No qualifying data available. Someone Will Contact You Regarding These Home Health Referrals No home referrals have been ordered for you. No one will call you. Allergies NKA Medications Please ask your primary doctor or pharmacist before taking any other medication not listed, including over the counter drugs, herbal medications, vitamins and or supplements as they may interact with your home medications. What How Much When Why Instructions Last Dose New diclofenac (diclofenac sodium 50 mg oral delayed release tablet) 1 tab(s) by mouth Three (3) times a day Pickup at [place] [address] New docusate (Colace 100 mg oral capsule) 1 cap by mouth Two (2) times a day Pickup at [place] [address] Changed oxyCODONE (oxyCODONE 5 mg oral tablet ( IMMEDIATE release )) 1 tab(s) by mouth Every 6 hours Post-op pain Duration: 4 Days Pickup at [place] [address] Unchanged nortriptyline (nortriptyline 10 mg oral capsule) 1 cap by mouth Daily at bedtime Unchanged spironolactone (spironolactone 100 mg oral tablet) 1 tab(s) by mouth Daily at bedtime Pharmacy Information [place] [address]: [address] [place] [id number] [phone] What How Much When Comments Stop Taking ketorolac (ketorolac 10 mg oral tablet) 1 tab(s) by mouth Four (4) times a day as needed for as needed for pain not to exceed 40 mg/ day and 5 days duration for all dose forms Stop Taking mupirocin topical (mupirocin 2% topical ointment) 1 application Topical Two (2) times a day Bilateral intranasal application twice daily x 5 days pre-surgery &/ or as many days pre-surgery as possible. Stop Taking onabotulinumtoxinA (Botox 100 units injection) 1.25 unit(s) Intramuscular Every 3 months Please take this list to your next doctor s visit. Bring all medications you take, including over the counter medications, herbals and other supplements with you to your doctor s visit. Patients and families are reminded to discard old lists and to update any records with all medication providers or retail pharmacies. Medication Leaflets diclofenac (dye KLOE fen ak) Cambia, Cataflam, Lofena, Zipsor, Zorvolex What is the most important information I should know about diclofenac? Diclofenac can increase your risk of fatal heart attack or stroke. Do not use this medicine just before or after heart bypass surgery (coronary artery bypass graft, or CABG). Diclofenac may also cause stomach or intestinal bleeding, which can be fatal. What is diclofenac? Diclofenac is a nonsteroidal anti-inflammatory drug (NSAID) that is used to treat mild to moderate pain, or signs and symptoms of osteoarthritis. Diclofenac powder (Cambia) is used to treat a migraine headache attack. Cambia will only treat a headache that has already begun. It will not prevent headaches or reduce the number of attacks. Diclofenac may also be used for purposes not listed in this medication guide. What should I discuss with my healthcare provider before taking diclofenac? Diclofenac can increase your risk of fatal heart attack or stroke, even if you don't have any risk factors. Do not use this medicine just before or after heart bypass surgery (coronary artery bypass graft, or CABG). Diclofenac may also cause stomach or intestinal bleeding, which can be fatal. These conditions can occur without warning while you are using diclofenac, especially in older adults. You should not use diclofenac if you are allergic to it, or if you have ever had an asthma attack or severe allergic reaction after taking aspirin or an NSAID. Do not use Cambia to treat a cluster headache. Do not use Zipsor if you are allergic to beef or beef protein. Tell your doctor if you have ever had: heart disease, high blood pressure; ulcers or bleeding in your stomach; asthma; liver or kidney disease; or if you smoke. Diclofenac can affect ovulation and it may be harder to get while you are using this medicine. If you are , you should not take diclofenac unless your doctor tells you to. Taking an NSAID during the last 20 weeks of can cause serious heart or kidney problems in the unborn baby and possible complications with your . It may not be safe to breastfeed while using this medicine. Ask your doctor about any risk. Diclofenac is not approved for use by anyone younger than 18 years old. How should I take diclofenac? Different brands of diclofenac contain different amounts of this medicine, and may have different uses. If you switch brands, your dose needs may change. Follow your doctor's instructions about how much medicine to take. Ask your pharmacist if you have any questions about the brand of diclofenac you receive at the pharmacy. Follow all directions on your prescription label and read all medication guides. Your doctor may occasionally change your dose. Use the lowest dose that is effective in treating your condition. Swallow the tablet whole and do not crush, chew, or break it. Take Zorvolex on an empty stomach, at least 1 hour before or 2 hours after a meal. Dissolve diclofenac powder (Cambia) with 1 to 2 ounces of water. Do not use any other type of liquid. Stir this mixture and drink all of it right away. Diclofenac powder works best if you take it on an empty stomach. Call your doctor if your headache does not completely go away after taking Cambia. If you use diclofenac long-term, you may need frequent medical tests. Store at room temperature away from moisture and heat. Keep the bottle tightly closed when not in use. What happens if I miss a dose? Take the missed dose as soon as you remember. Skip the missed dose if it is almost time for your next scheduled dose. Do not take extra medicine to make up the missed dose. What happens if I overdose? Seek emergency medical attention or call the Poison Help line at . What should I avoid while taking diclofenac? Avoid drinking alcohol. It may increase your risk of stomach bleeding. Avoid taking aspirin or other NSAIDs unless your doctor tells you to. Ask a doctor or pharmacist before using other medicines for pain, fever, swelling, or cold/flu symptoms. They may contain ingredients similar to diclofenac (such as aspirin, ibuprofen, ketoprofen, or naproxen). What are the possible side effects of diclofenac? Get emergency medical help if you have signs of an allergic reaction (hives, difficult breathing, swelling in your face or throat) or a severe skin reaction (fever, sore throat, burning eyes, skin pain, red or purple skin rash with blistering and peeling). Stop using diclofenac and seek medical treatment if you have a serious drug reaction that can affect many parts of your body. Symptoms may include skin rash, fever, swollen glands, muscle aches, severe weakness, unusual bruising, or yellowing of your skin or eyes. Get emergency medical help if you have signs of a heart attack or stroke: chest pain spreading to your jaw or shoulder, sudden numbness or weakness on one side of the body, slurred speech, feeling short of breath. Stop using diclofenac and call your doctor at once if you have: the first sign of any skin rash, no matter how mild; flu-like symptoms; heart problems--swelling, rapid weight gain, feeling short of breath; kidney problems--little or no urinating, painful or difficult urination, swelling in your arms or legs, feeling tired or short of breath; liver problems--nausea, diarrhea, stomach pain (upper right side), tiredness, itching, dark urine, jaundice (yellowing of the skin or eyes); or signs of stomach bleeding--bloody or tarry stools, coughing up blood or vomit that looks like coffee grounds. Common side effects may include: indigestion, gas, nausea, vomiting, stomach pain; diarrhea, constipation; headache, dizziness, drowsiness; abnormal lab tests; itching, sweating; stuffy nose; increased blood pressure; or swelling or pain in your arms or legs. This is not a complete list of side effects and others may occur. Call your doctor for medical advice about side effects. You may report side effects to FDA at 9-649-YEB-1934. What other drugs will affect diclofenac? Ask your doctor before using diclofenac if you take an antidepressant. Taking certain antidepressants with an NSAID may cause you to bruise or bleed easily. Tell your doctor about all your other medicines, especially: heart or blood pressure medication, including a diuretic or 'water pill'; other forms of diclofenac (Arthrotec, Flector, Pennsaid, Solaraze, Voltaren Gel); a blood thinner--warfarin, Coumadin, Jantoven; or other NSAIDs--aspirin, ibuprofen (Advil, Motrin), naproxen (Aleve), celecoxib (Celebrex), indomethacin, meloxicam, and others. This list is not complete. Other drugs may affect diclofenac, including prescription and xqiy-lhh-fhmrbpk medicines, vitamins, and herbal products. Not all possible drug interactions are listed here. Where can I get more information? Your pharmacist can provide more information about diclofenac. Remember, keep this and all other medicines out of the reach of children, never share your medicines with others, and use this medication only for the indication prescribed. Every effort has been made to ensure that the information provided by [employer]. [employer] is accurate, up-to-date, and complete, but no guarantee is made to that effect. Drug information contained herein may be time sensitive. [employer] information has been compiled for use by healthcare practitioners and consumers in the [place] and therefore [employer] does not warrant that uses outside of the [place] are appropriate, unless specifically indicated otherwise. [employer] drug information does not endorse drugs, diagnose patients or recommend therapy. [employer] drug information is an informational resource designed to assist licensed healthcare practitioners in caring for their patients and/or to serve consumers viewing this service as a supplement to, and not a substitute for, the expertise, skill, knowledge and judgment of healthcare practitioners. The absence of a warning for a given drug or drug combination in no way should be construed to indicate that the drug or drug combination is safe, effective or appropriate for any given patient. [facility] does not assume any responsibility for any aspect of healthcare administered with the aid of information [facility] provides. The information contained herein is not intended to cover all possible uses, directions, precautions, warnings, drug interactions, allergic reactions, or adverse effects. If you have questions about the drugs you are taking, check with your doctor, nurse or pharmacist. Copyright 9217-9110 [facility]. Version: .. Revision Date: 12/23/2021. docusate (oral/rectal) (DOK ue sate) Colace, Colace Clear, Docu Soft, Doculase, Docusate Mini, DocuSol Kids, DOK, DSS, Dulcolax Stool Softener, Enemeez Mini, Pedia-Lax Stool Softener, Aviles Stool Softener, Silace, Melany-Q-Lax What is the most important information I should know about docusate? You should not use docusate if you also use mineral oil, unless your doctor tells you to. What is docusate? Docusate is a stool softener that makes bowel movements softer and easier to pass. Docusate is used to relieve occasional constipation (irregularity). There are many brands and forms of docusate available. Not all brands are listed on this leaflet. Docusate may also be used for purposes not listed in this medication guide. What should I discuss with my healthcare provider before using docusate? You should not use docusate if you are allergic to it. Ask a doctor or pharmacist if this medicine is safe to use if you have: stomach pain; nausea; vomiting; or a sudden change in bowel habits that lasts over 2 weeks. Ask a doctor before using this medicine if you are or . Do not give this medicine to a child without medical advice. How should I use docusate? Use exactly as directed on the label, or as prescribed by your doctor. Drink plenty of liquids while you are using docusate. Measure liquid medicine carefully. Use the dosing syringe provided, or use a medicine dose-measuring device (not a kitchen spoon). Do not take the rectal enema by mouth. Rectal medicine is for use only in the rectum. Wash your hands before and after using the enema. To use the enema, lie on your left side with your left leg extended and your right leg slightly bent. Remove the cap from the applicator tip and gently insert the tip into your rectum. Slowly squeeze the bottle to empty the contents into the rectum. After using the enema, lie down on your left side for at least 30 minutes to allow the liquid to distribute throughout your intestines. Avoid using the bathroom, and hold in the enema at least 1 hour, or all night if possible. Read and carefully follow any Instructions for Use provided with your medicine. Ask your doctor or pharmacist if you do not understand these instructions. Docusate generally produces bowel movement in 12 to 72 hours. Call your doctor if your symptoms do not improve after 72 hours. You should not use docusate for longer than 1 week, unless your doctor tells you to. Store at room temperature away from moisture, light, and heat. Do not freeze liquid medicine. What happens if I miss a dose? Since docusate is used when needed, you may not be on a dosing schedule. Skip any missed dose if it's almost time for your next dose. Do not use two doses at one time. What happens if I overdose? Seek emergency medical attention or call the Poison Help line at . What should I avoid while using docusate? Avoid using mineral oil, unless told to do so by a doctor. What are the possible side effects of docusate? Get emergency medical help if you have signs of an allergic reaction: hives; difficult breathing; swelling of your face, lips, tongue, or throat. Stop using docusate and call your doctor at once if: you have rectal bleeding; no bowel movement occurs after using a laxative; you need to use a stool softener for more than 1 week; or rash occurs. Less serious side effects may be more likely, and you may have none at all. This is not a complete list of side effects and others may occur. Call your doctor for medical advice about side effects. You may report side effects to FDA at 4-078-JCH-4838. What other drugs will affect docusate? Other drugs may affect docusate, including prescription and oucz-hdy-qbpvmnz medicines, vitamins, and herbal products. Tell your doctor about all other medicines you use. Where can I get more information? Your pharmacist can provide more information about docusate. Remember, keep this and all other medicines out of the reach of children, never share your medicines with others, and use this medication only for the indication prescribed. Every effort has been made to ensure that the information provided by [employer] is accurate, up-to-date, and complete, but no guarantee is made to that effect. Drug information contained herein may be time sensitive. [employer] information has been compiled for use by healthcare practitioners and consumers in the [place] and therefore [employer] does not warrant that uses outside of the [place] are appropriate, unless specifically indicated otherwise. [employer] drug information does not endorse drugs, diagnose patients or recommend therapy. [employer] drug information is an informational resource designed to assist licensed healthcare practitioners in caring for their patients and/or to serve consumers viewing this service as a supplement to, and not a substitute for, the expertise, skill, knowledge and judgment of healthcare practitioners. The absence of a warning for a given drug or drug combination in no way should be construed to indicate that the drug or drug combination is safe, effective or appropriate for any given patient. [employer] does not assume any responsibility for any aspect of healthcare administered with the aid of information [employer] provides. The information contained herein is not intended to cover all possible uses, directions, precautions, warnings, drug interactions, allergic reactions, or adverse effects. If you have questions about the drugs you are taking, check with your doctor, nurse or pharmacist. Copyright 1377-1582 [employer]. Version: 7.02. Revision Date: 12/12/2023. oxycodone (ox i KOE done) Oxaydo, OxyCONTIN, Roxicodone, RoxyBond, Xtampza ER What is the most important information I should know about oxycodone? MISUSE OF OPIOID MEDICINE CAN CAUSE ADDICTION, OVERDOSE, OR . Fatal side effects may occur if you also drink alcohol or use other drugs that cause drowsiness or slow breathing. Using opioid medicine during may cause life-threatening withdrawal symptoms in the . What is oxycodone? Oxycodone is an opioid pain medication used to treat moderate to severe pain. Oxycodone is usually given after other treatments did not work or were not tolerated. Extended-release oxycodone is for uqkknt-kqi-uhhci treatment of severe and chronic pain that requires longer treatment. This medicine is not for use on an as-needed basis. Oxycodone may also be used for purposes not listed in this medication guide. What should I discuss with my healthcare provider before taking oxycodone? You should not use oxycodone if you are allergic to it, or if you have severe asthma, breathing problems or a stomach or bowel obstruction (including paralytic ileus). Tell your doctor if you have ever had: other breathing problems, sleep apnea (breathing that stops during sleep); a head injury, brain tumor, high pressure inside the skull, or seizures, drug or alcohol addiction, or mental illness; if you have used an MAO inhibitor in the past 14 days, such as isocarboxazid, linezolid, methylene blue injection, phenelzine, or tranylcypromine; urination problems, problems with your gallbladder, pancreas, thyroid, or adrenal gland; or liver or kidney disease. Most forms of oxycodone are not approved for use in people under 18 years old. The extended-release tablets should not be given to a child younger than 11 years old. Tell your doctor if you also use stimulant medicine, opioid medicine, herbal products, or medicine for depression, mental illness, Parkinson's disease, migraine headaches, serious infections, or prevention of nausea and vomiting. An interaction with oxycodone could cause a serious condition called serotonin syndrome. May harm an unborn baby. Tell your doctor if you are or plan to become . If you use oxycodone during , your baby could be born with life-threatening withdrawal symptoms, and may need medical treatment for several weeks. Do not breastfeed. Oxycodone in breast milk can cause life-threatening side effects in a nursing baby. Long-term oxycodone may affect fertility in men or women. could be harder to achieve while either parent is using this medicine. How should I take oxycodone? Follow the directions on your prescription label and read all medication guides or instruction sheets. Never use oxycodone in larger amounts, or for longer than prescribed. Tell your doctor if you feel an increased urge to use more of this medicine. Never share opioid medicine with another person, especially someone with a history of drug addiction. MISUSE CAN CAUSE ADDICTION, OVERDOSE, OR . Keep the medicine where others cannot get to it. Selling or giving away this medicine is against the law. Never crush a pill or use the liquid to inhale the mixture or inject it into your vein. This could result in . Your dose needs may change if you switch to a different brand, strength, or form of this medicine. Avoid medication errors by using exactly as directed on the label, or as prescribed by your doctor. Stop taking all other dtvtxn-czk-fhqoq opioid pain medicines when you start taking extended-release oxycodone. Swallow the extended-release forms whole to avoid exposure to a potentially fatal overdose. Do not crush, chew, break, open, or dissolve. Take the extended-release capsules with food. Read and carefully follow the instructions for use on how to prepare and take this medicine if you cannot swallow extended release capsules whole or you use a feeding tube. Ask your doctor or pharmacist if you don't understand these instructions. Measure liquid medicine with the supplied measuring device (not a kitchen spoon). You may be given other medications to help prevent or treat certain side effects. You may have withdrawal symptoms if you stop using oxycodone suddenly. Ask your doctor before stopping the medicine. Store at room temperature away from moisture and heat. Keep your medicine in a place where no one can use it improperly. Do not keep leftover medicine. Just one dose can cause in someone using it accidentally or improperly. Ask your pharmacist about a drug take-back program, or flush the unused medicine down the toilet. What happens if I miss a dose? Since oxycodone is used for pain, you are not likely to miss a dose. Skip any missed dose if it is almost time for your next dose. Do not use two doses at one time. What happens if I overdose? Seek emergency medical attention or call the Poison Help line at . An overdose can be fatal, especially in a child or person using opioid medicine without a prescription. Your doctor may recommend you get naloxone (a medicine to reverse an opioid overdose) and keep it with you at all times. A person caring for you can give the naloxone if you stop breathing or don't wake up. Your caregiver must still get emergency medical help and may need to perform CPR (cardiopulmonary resuscitation) on you while waiting for help to arrive. Anyone can buy naloxone from a pharmacy or local health department. Make sure any person caring for you knows where you keep naloxone and how to use it. What should I avoid while taking oxycodone? Do not drink alcohol or any products that contain alcohol. Dangerous side effects or could occur. Avoid driving or hazardous activity until you know how this medicine will affect you. Dizziness or drowsiness can causing falls, accidents, or severe injuries. Also avoid getting up too fast from a sitting or lying position, or you may feel dizzy. What are the possible side effects of oxycodone? Get emergency medical help if you have signs of an allergic reaction: hives, difficult breathing, swelling of your face, lips, tongue, or throat. Opioid medicine can slow or stop your breathing, and may occur, especially if you drink alcohol or use other drugs that cause drowsiness or slow breathing. A person caring for you should give naloxone and/or seek emergency medical attention if you have slow breathing with long pauses, blue colored lips, or if you are hard to wake up. Call your doctor at once if you have: slow heart rate, weak pulse, fainting, slow breathing (breathing may stop); chest pain, fast or pounding heartbeats; a seizure, extreme drowsiness; or decreased adrenal gland hormones--nausea, vomiting, stomach pain, loss of appetite, feeling tired or light-headed, muscle or joint pain, skin discoloration, craving salty foods. Serious breathing problems may be more likely in older adults and in those who are debilitated or have wasting syndrome or chronic breathing disorders. Seek medical attention right away if you have symptoms of serotonin syndrome, such as: agitation, hallucinations, fever, sweating, shivering, fast heart rate, muscle stiffness, twitching, loss of coordination, nausea, vomiting, or diarrhea. Common side effects may include: sleep problems (insomnia), itching; drowsiness, headache, dizziness, tiredness; or constipation, stomach pain, nausea, vomiting. This is not a complete list of side effects and others may occur. Call your doctor for medical advice about side effects. You may report side effects to FDA at 8-088-RJU-3144. What other drugs will affect oxycodone? You may have a fatal oxycodone overdose if you start or stop using certain medicines. Tell your doctor about all your medications. Tell your doctor about all your medications especially if you use medicine to treat HIV, antibiotic, antifungal medication, or seizure medication. Many other drugs can be dangerous when used with opioid medicine. Tell your doctor if you also use: medicine for allergies, asthma, blood pressure, motion sickness, irritable bowel, or overactive bladder; other opioid medicines, a benzodiazepine sedative like Valium, Klonopin, or Xanax; sleep medicine, muscle relaxers, or other drugs that make you drowsy; or drugs that affect serotonin, such as antidepressants, stimulants, or medicine for migraines or Parkinson's disease. This list is not complete and many other drugs may affect oxycodone. This includes prescription and lgdx-huz-xlwzofx medicines, vitamins, and herbal products. Not all possible drug interactions are listed here. Where can I get more information? Your doctor or pharmacist can provide more information about oxycodone. Remember, keep this and all other medicines out of the reach of children, never share your medicines with others, and use this medication only for the indication prescribed. Every effort has been made to ensure that the information provided by [employer] is accurate, up-to-date, and complete, but no guarantee is made to that effect. Drug information contained herein may be time sensitive. [employer] information has been compiled for use by healthcare practitioners and consumers in the [place] and therefore [employer] does not warrant that uses outside of the [place] are appropriate, unless specifically indicated otherwise. [employer] drug information does not endorse drugs, diagnose patients or recommend therapy. [employer] drug information is an informational resource designed to assist licensed healthcare practitioners in caring for their patients and/or to serve consumers viewing this service as a supplement to, and not a substitute for, the expertise, skill, knowledge and judgment of healthcare practitioners. The absence of a warning for a given drug or drug combination in no way should be construed to indicate that the drug or drug combination is safe, effective or appropriate for any given patient. [employer] does not assume any responsibility for any aspect of healthcare administered with the aid of information [facility] provides. The information contained herein is not intended to cover all possible uses, directions, precautions, warnings, drug interactions, allergic reactions, or adverse effects. If you have questions about the drugs you are taking, check with your doctor, nurse or pharmacist. Copyright 3884-0463 [employer]. Version: 17.01. Revision Date: 09/12/2023. Education Materials Cystoscopy Cystoscopy is a procedure that is used to help diagnose and sometimes treat conditions that affect the lower urinary tract. The lower urinary tract includes the bladder and the urethra. The urethra is the tube that drains urine from the bladder. Cystoscopy is done using a thin, tube-shaped instrument with a light and camera at the end (cystoscope). The cystoscope may be hard or flexible, depending on the goal of the procedure. The cystoscope is inserted through the urethra, into the bladder. Cystoscopy may be recommended if you have: Urinary tract infections that keep coming back. Blood in the urine (hematuria). An inability to control when you urinate (urinary incontinence) or an overactive bladder. Unusual cells found in a urine sample. A blockage in the urethra, such as a urinary stone. Painful urination. An abnormality in the bladder found during an intravenous pyelogram (IVP) or CT scan. Cystoscopy may also be done to remove a sample of tissue to be examined under a microscope (biopsy). Tell a health care provider about: Any allergies you have. All medicines you are taking, including vitamins, herbs, eye drops, creams, and rnyi-ume-dittltw medicines. Any problems you or family members have had with anesthetic medicines. Any blood disorders you have. Any surgeries you have had. Any medical conditions you have. Whether you are or may be . What are the risks? Generally, this is a safe procedure. However, problems may occur, including: Infection. Bleeding. Allergic reactions to medicines. Damage to other structures or organs. What happens before the procedure? Ask your health care provider about: ? Changing or stopping your regular medicines. This is especially important if you are taking diabetes medicines or blood thinners. ? Taking medicines such as aspirin and ibuprofen. These medicines can thin your blood. Do not take these medicines unless your health care provider tells you to take them. ? Taking cbcf-mos-aacnwuu medicines, vitamins, herbs, and supplements. Follow instructions from your health care provider about eating or drinking restrictions. Ask your health care provider what steps will be taken to help prevent infection. These may include: ? Washing skin with a germ-killing soap. ? Taking antibiotic medicine. You may have an exam or testing, such as: ? X-rays of the bladder, urethra, or kidneys. ? Urine tests to check for signs of infection. Plan to have someone take you home from the hospital or clinic. What happens during the procedure? You will be given one or more of the following: ? A medicine to help you relax (sedative). ? A medicine to numb the area (local anesthetic). The area around the opening of your urethra will be cleaned. The cystoscope will be passed through your urethra into your bladder. Germ-free (sterile) fluid will flow through the cystoscope to fill your bladder. The fluid will stretch your bladder so that your health care provider can clearly examine your bladder mahan. Your doctor will look at the urethra and bladder. Your doctor may take a biopsy or remove stones. The cystoscope will be removed, and your bladder will be emptied. The procedure may vary among health care providers and hospitals. What can I expect after the procedure? After the procedure, it is common to have: Some soreness or pain in your abdomen and urethra. Urinary symptoms. These include: ? Mild pain or burning when you urinate. Pain should stop within a few minutes after you urinate. This may last for up to 1 week. ? A small amount of blood in your urine for several days. ? Feeling like you need to urinate but producing only a small amount of urine. Follow these instructions at home: Medicines Take lyzf-odq-jjplzhf and prescription medicines only as told by your health care provider. If you were prescribed an antibiotic medicine, take it as told by your health care provider. Do not stop taking the antibiotic even if you start to feel better. General instructions Return to your normal activities as told by your health care provider. Ask your health care provider what activities are safe for you. Do not drive for 24 hours if you were given a sedative during your procedure. Watch for any blood in your urine. If the amount of blood in your urine increases, call your health care provider. Follow instructions from your health care provider about eating or drinking restrictions. If a tissue sample was removed for testing (biopsy) during your procedure, it is up to you to get your test results. Ask your health care provider, or the department that is doing the test, when your results will be ready. Drink enough fluid to keep your urine pale yellow. Keep all follow-up visits as told by your health care provider. This is important. Contact a health care provider if you: Have pain that gets worse or does not get better with medicine, especially pain when you urinate. Have trouble urinating. Have more blood in your urine. Get help right away if you: Have blood clots in your urine. Have abdominal pain. Have a fever or chills. Are unable to urinate. Summary Cystoscopy is a procedure that is used to help diagnose and sometimes treat conditions that affect the lower urinary tract. Cystoscopy is done using a thin, tube-shaped instrument with a light and camera at the end. After the procedure, it is common to have some soreness or pain in your abdomen and urethra. Watch for any blood in your urine. If the amount of blood in your urine increases, call your health care provider. If you were prescribed an antibiotic medicine, take it as told by your health care provider. Do not stop taking the antibiotic even if you start to feel better. This information is not intended to replace advice given to you by your health care provider. Make sure you discuss any questions you have with your health care provider. Document Released: 08/04/2001 Document Revised: 07/30/2019 Document Reviewed: 07/30/2019 [employer] Patient Education 2020 [employer]. Vaginal Hysterectomy, Care After Refer to this sheet in the next few weeks. These instructions provide you with information about caring for yourself after your procedure. Your health care provider may also give you more specific instructions. Your treatment has been planned according to current medical practices, but problems sometimes occur. Call your health care provider if you have any problems or questions after your procedure. What can I expect after the procedure? After the procedure, it is common to have: Pain. Soreness and numbness in your incision areas. Vaginal bleeding and discharge. Constipation. Temporary problems emptying the bladder. Feelings of sadness or other emotions. Follow these instructions at home: Medicines Take vxsy-jhv-wegfejx and prescription medicines only as told by your health care provider. If you were prescribed an antibiotic medicine, take it as told by your health care provider. Do not stop taking the antibiotic even if you start to feel better. Do not drive or operate heavy machinery while taking prescription pain medicine. Activity Return to your normal activities as told by your health care provider. Ask your health care provider what activities are safe for you. Get regular exercise as told by your health care provider. You may be told to take short walks every day and go farther each time. Do not lift anything that is heavier than 10 lb (4.5 kg). General instructions Do not put anything in your vagina for 6 weeks after your surgery or as told by your health care provider. This includes tampons and douches. Do not have sex until your health care provider says you can. Do not take baths, swim, or use a hot tub until your health care provider approves. Drink enough fluid to keep your urine clear or pale yellow. Do not drive for 24 hours if you were given a sedative. Keep all follow-up visits as told by your health care provider. This is important. Contact a health care provider if: Your pain medicine is not helping. You have a fever. You have redness, swelling, or pain at your incision site. You have blood, pus, or a bad-smelling discharge from your vagina. You continue to have difficulty urinating. Get help right away if: You have severe abdominal or back pain. You have heavy bleeding from your vagina. You have chest pain or shortness of breath. This information is not intended to replace advice given to you by your health care provider. Make sure you discuss any questions you have with your health care provider. Document Released: 11/28/2016 Document Revised: 03/30/2017 Document Reviewed: 08/21/2016 [employer] Patient Education 2020 [employer] What to Do After Your Gynecology or Gynecology Oncology Surgery This sheet will give you general information on what to do when you are home after surgery. However, you should always follow any specific instructions given to you by your surgeon. Pain Medication Please follow the directions on the label of your medication and use your discharge medication list provided by the hospital. Do not take this medication on an empty stomach. This may cause a stomachache. Use a stool softener or gentle laxative (milk of magnesia) if needed. Constipation is not uncommon while taking oral pain medication. Use less of any narcotic pain medication as soon as your pain allows. You may take aylv-tws-xwntewe pain medication if you no longer need your prescribed pain medication. Lgis-yee-roclomt pain medications are Tylenol (acetaminophen) or Advil (ibuprofen). Do not take Tylenol if you are still taking [place] or Percocet. They are the same type of medication. Too much acetaminophen can hurt your liver. Activity It is OK to use the stairs, but try to avoid them or take less trips right after surgery. After surgery, you may feel tired. Rest is important for healing. Slowly increase your activity level by walking and doing normal activities as you feel comfortable. Follow surgeon instructions on driving. You may not be able to drive for one to six weeks depending on what surgery and incisions you have. Do not drive while taking narcotic pain medication. They should be out of your system for 24 hours. Diet Eating smaller meals instead of three large meals is good. This may help with your appetite and nutrition. Good nutrition will help you heal. Follow diet instructions that you were taught after surgery. Infection Prevention Washing your hands is one of the best ways to prevent infection. Always wash your hands before and after touching your incision or dressing. Hands carry germs that can cause infections. Try not to touch your incision. Keep the Incision Clean Wear clean, loose-fitting clothes to prevent clothes from rubbing on the incision. Put clean sheets on your bed when you get home. Do not let other people or animals touch the incision. Showering You may start to shower 24 hours after your surgery. Use a clean washcloth and towel on your incision before you use it on any other area of your body. Adjust the shower spray to gentle and use warm water. Gently wash over your incision using antibacterial soap and water and pat it dry. Do not rub the incision. Do not soak or submerge in the bathtub or hot tub until your surgeon says it is (more content not included)... [facility] 05-14-2024 Note ORIGINAL Images acquired, not reported on this accession number. [facility] 05-13-2024 History and physical note Date of Service 05/13/2024 History and Physical Update I have examined the patient; reviewed the History and Physical and there are no interval changes to the History and Physical unless noted below. Please see Dr. Eden's addendum, if applicable. History and Physical Chief Complaint PRE-OP CHECK SX SCHEDULED 05/06/24 History of Present Illness This is a 43-year-old female patient of Deborah Rasmussen APRN, CNM of [facility] who has a history of dysmenorrhea, and uterovaginal prolapse. Patient has been complaining of some heavy menstrual bleeding and dysmenorrhea, approximately 15 months ago she had an LG IUD inserted which improved her clotting. Patient however continued to have heavy bleeding and dysmenorrhea. She underwent an ultrasound in the emergency room which showed the IUD was in the correct position, follow-up ultrasound in the office showed concern for a potential endometrioma (ultrasound not available), patient has significant anterior and posterior vaginal prolapse as she is a para 5 with a history of 3rd degree laceration. She also complains of stress urinary incontinence, she has had pelvic floor physical therapy in the past which slightly improved her symptoms but did not resolve it. Patient denies symptoms of urge incontinence, stating she only feels that way when she thinks she has a urinary tract infection. I had a long discussion with the patient in regards to management options, including conservative management with a pessary, pelvic floor physical therapy, medical management of her heavy menstrual bleeding and dysmenorrhea, and definitive surgical management. After long discussion the patient does wish to proceed with definitive surgical management. Patient denies a history of abnormal Paps, and previous endometrial biopsy showed no evidence of malignancy or atypia. Patient wishes to avoid mesh if possible, therefore interested in tun[place]ak tissue repair and Bulkamid. Discussed possible unilateral salpingo-oophorectomy as we do not know the laterality of this patient's endometrioma. Risk benefits alternatives of a laparoscopic assisted vaginal hysterectomy were discussed including the risk of bleeding infection and injury to surrounding organs. Specifically discussed the risk of bleeding requiring transfusion, infection requiring extended antibiotic therapy or invasive treatment. Discussed injury to surrounding organs including the bowel bladder and ureters, requiring primary repair, prolonged catheterization, ureteral stents or reanastomosis. Also discussed the risk of vaginal cuff dehiscence, requiring emergency surgery to repair; pelvic rest of a minimum of 9 to 12 weeks discussed. Risks benefits alternatives of a laparoscopic unilateral salpingo-oophorectomy were discussed including the risk of bleeding infection and injury to surrounding organs. Specifically discussed the risks of ureteral injury requiring primary repair, ureteral stents or reanastomosis; bowel injury similarly requiring reanastomosis or resection; and vascular injury requiring transfusion, conversion to laparotomy, primary repair. Discussed the risks of surgical spillage of an ovarian cyst, with potential upstaging of occult malignancy. Discussed the risks of surgical menopause if premenopausal, including risk of all-cause mortality, specifically related to cardiovascular disease, as well as cancer other than ovarian cancer, osteoporosis and cognitive impairment. Patient understands these risks and wishes to proceed anterior colporrhaphy- specifically the risk of bladder perforation which could require prolonged catheterization and/or primary repair, ureteral injury secondary to plication, pain, infection, recurrent prolapse, dyspareunia, bleeding posterior colporrhaphy were discussed, specifically the risk of rectal perforation which could require primary repair and in rare cases colonic diversion, rectovaginal fistula perineorrhaphy were discussed, specifically the risk of rectal perforation which could require primary repair and in rare cases colonic diversion, rectovaginal fistula, and pain Risk benefits and alternatives of a vaginal uterosacral ligament fixation were discussed, including the risk of bleeding, infection, injury to surrounding organs. Specifically discussed the risk of ureteral obstruction or kinking requiring ureteral stenting, or reanastomosis. Discussed success rates for uterosacral ligament fixation (greater than 90%) as well as risk of recurrence (10 to 20%), increasing with advanced prolapse. Discussed that later prolapse of the anterior and posterior vaginal mahan is common, and that dyspareunia can occur after surgery. Also discussed the risk of occult urinary incontinence. Risk benefits and alternatives of urethral bulking were discussed with the patient, including the risk of bleeding infection and injury to surrounding organs. Specifically discussed the risk of urinary retention requiring intermittent self-catheterization, hematuria, and more frequent voiding. Patient denies any symptoms of urinary tract infection. Family History Breast cancer: Maternal Aunt. Cancer: Father. Health Status Family Member(s) Mother: History is negative Sister: History is negative Brother: History is negative Review of Systems see HPI Physical Exam Vital Signs and Measurements This Visit - Last 24 Hours T: 36.9 C (Oral) HR: 80 RR: 16 BP: 105/73 SpO2: 98% HT: 167.6 cm WT: 87.4 kg BMI: 31.11 General Appearance: No immediate distress Head: Normocephalic atraumatic Lungs: No increased work of breathing Abdomen: Soft Performance Scales and Status No documentation within the last 12 months Results 12/26/2023 endometrial biopsy: Polypoid fragments of benign endometrium with changes consistent with exogenous progesterone effect. [1] (10/31/2023 13:42 EDT US Pelvis Non-OB W/Transvaginal) [id number] ORIGINAL EXAMINATION: TRANSVAGINAL PELVIC ULTRASOUND 10/31/2023 TECHNIQUE: Transvaginal pelvic ultrasound was performed. COMPARISON: None HISTORY: ORDERING SYSTEM PROVIDED HISTORY: Reason for Exam: eval for ovarian torsion, rlq pain IUD inserted. FINDINGS: Measurements: Uterus: 8.0 x 5.6 x 4.1 Endometrial stripe: 5.6 mm Right Ovary:2.3 x 1.3 x 1.4 Left Ovary: 2.5 x 1.7 x 1.8 Ultrasound Findings: Uterus: Uterus demonstrates normal myometrial echotexture. Endometrial stripe: Endometrial stripe is within normal range and contains a echogenic focus representing the intrauterine device in appropriate location. Right Ovary: Right ovary is within normal limits. Left Ovary: Left ovary is within normal limits. Free Fluid: No evidence of free fluid. IMPRESSION: 1. Intrauterine device in appropriate location. 2. No acute pelvic process. [2] Digitally Signed by EUGENIO DILLON MD on 05/13/2024 09:32 AM [facility] 05-13-2024 Procedure note Patient: BUTCH KELLY Age: 43 years Sex: Female : 1980 Associated Diagnoses: None Author: JENNIFER SAMS MD Visit Information Location: Regional Block Area. Reason: Postoperative Pain Management, Surgeon Request. Timing: Preoperative. Start Time 1138 Stop Time 1149 Time Out Performed: Refer to [place] Time Out Form, Patient was confirmed by two patient identifiers, The procedure and laterality were verified. Monitored During Procedure: BP, Oxygen Saturation, OTHER (Heart rate). Vitals Signs Assessed Immediately Prior to Regional Placement/Sedation: No Change in Plan. Level of Sedation: Awake, Responsive. Oxygen Therapy: O2 applied prior to procedure. Procedure Procedure Type: Main Nerve Block QL. Position Type: Left Lateral, Right Lateral. Laterality Bilateral. Needle Type: Echogenic. Size: 21 G. Length: 4 . Ultrasound Exam Dynamic Guidance Use Throughout. OTHER (Image saved to patient's EMR). Parathesia Location: None. Prep Type: Cholorprep, Skin Prep Allowed to Dry. Sterile Barrier Type: Hand Hygiene, Sterile Drape, gloves, mask, and hat. Patient Condition Tolerated Well/No Complications. Note (Aspiration after every 5mL injected with negative blood return, medication injected slowly without high pressure, vital signs unchanged with injection of local anesthetic). Total 20 ml of 0.5% bupivicaine with 2 mg of decadron given per each quadratus lumborum nerve block Review / Management Vital signs remain stable throughout procedure, see nursing documentation for vital signs Intravenous Medications: Administered: Intravenous Medications - See MAR. Nerve block Medications: See MAR for medications administered for nerve block Professional Services Provider: Anesthesiologist. Digitally Signed by JENNIFER SAMS MD on 05/13/2024 11:48 AM [facility] 05-13-2024 Anesthesiology Consult note Patient: BUTCH KELLY Age: 43 years Sex: Female : 1980 Associated Diagnoses: None Author: JENNIFER SAMS MD Preoperative Information Time of last food or liquid consumption: 05/12/2024 18:00:00 Anesthesia history Patient's history: negative. Family's history: negative. Health Status Allergies: Allergic Reactions (All) NKA Canceled/Inactive Reactions (All) Severity Not Documented General anesthesia- No reactions were documented., Allergies (1) ActiveSeverityReaction NKANone Documented Current medications: (Selected) Inpatient Medications Ordered Kefzol: 2 gram(s), 20 mL, 240 mL/hr, IV Push, PREOP pharm LR 1,000 mL: 20 mL/hr, Intravenous lidocaine 1% preservative-free injectable solution: 2.5 mg, 0.25 mL, Intradermal, prep pharm Prescriptions Prescribed mupirocin 2% topical ointment: 1 shaq, Topical, BID, Bilateral intranasal application twice daily x 5 days pre-surgery &/or as many days pre-surgery as possible., 22 gram(s), 0 Refill(s) Documented Medications Documented Botox 100 units injection: 1.25 unit(s), Intramuscular, q3mo, 0 Refill(s) nortriptyline 10 mg oral capsule: 10 mg, 1 cap(s), Oral, qHS spironolactone 100 mg oral tablet: 100 mg, 1 tab(s), Oral, qHS, 0 Refill(s), Medications (3) Active Scheduled: (2) ceFAZolin syringe 2 gram(s) 20 mL, IV Push, PREOP pharm lidocaine 1% (MPF) 2 mL vial pf 2.5 mg 0.25 mL, Intradermal, prep pharm Continuous: (1) Lactated Ringers 1,000 mL 1,000 mL, Intravenous, 20 mL/hr PRN: (0) Problem list: Medical Migraine / SNOMED CT [id number] / Confirmed, Active Problems (6) Dysmenorrhea Irritable bowel syndrome Migraine Pelvic prolapse PONV (postoperative nausea and vomiting) Vitamin D deficiency Histories Past Medical History: Resolved ([id number]): Onset on 10/20/2015 at 35 years. Resolved on 08/31/2016 at 35 years. ([id number]): Onset on 06/12/2013 at 32 years. Resolved on 03/26/2014 at 33 years. ([id number]): Onset on 11/21/2007 at 27 years. Resolved on 08/06/2008 at 27 years. ([id number]): Onset on 03/10/2006 at 25 years. Resolved on 11/24/2006 at 26 years. ([id number]): Onset on 04/22/2003 at 22 years. Resolved on 02/03/2004 at 23 years. Polyhydramnios ([id number]): Resolved. or effect of condition of umbilical cord ([id number]): Resolved. ([id number]): Resolved. Comments: 08/31/2016 EST 15:48 EST - SYSTEM System added from documentation. Breast feeding Status documented as Yes on Admission Family History: Cancer Father Comments: 01/08/2024 13:51 Teresa Bah LPN Testicular Breast cancer Maternal Aunt Procedure history: Sinus septum ([id number]) in 2003 at 23 Years. Appendectomy ([id number]). Colonoscopy ([id number]). Social History: Social & Psychosocial Habits Alcohol 07/26/2017Risk Assessment: Denies Alcohol Use 01/08/2024 Use: Never Substance Abuse 07/26/2017Risk Assessment: Denies Substance Abuse 01/08/2024 Use: Never Tobacco 4Risk Assessment: Denies Tobacco Use 01/08/2024 Tobacco Use: Never (less than 100 in l Home/Environment 04/25/2024 Living situation: Home/Independent Safe place to go: Yes Domestic Concerns None Lives In Multilevel home Physical Examination No qualifying data available General: Alert and oriented. Airway: Normal temporomandibular joint mobility, Nares patent, Trachea midline. Mallampati classification: II (soft palate, fauces, uvula visible). Head: Normocephalic, Atraumatic. Dentition Evaluation: Intact, Own teeth, Capped teeth. Respiratory: Lungs are clear to auscultation. Cardiovascular: Normal rate, Regular rhythm. Neurologic: Alert, Oriented. Review / Management Results review: No qualifying data available , Lab results 05/13/2024 9:38 EDT Urine POC Negative 05/13/2024 9:31 EDT History and Physical Update History and Physical Update Note . Assessment and Plan [place] [employer]esthesi[employer] (ASA) physical status classification: Class II. Anesthetic Preoperative Plan Anesthetic technique: General. Induction: intravenously. Maintenance airway: Oral endotracheal tube. Regional: bilateral quadratus lumborum nerve blocks for postop pain control per Dr Eden request. Postoperative pain management: Per surgeon. Risks discussed: nausea, vomiting, headache, sore throat, dental injury, hypotension, allergic reaction, serious complications. Informed consent: signed by patient. Notes: IBS, migraines, pelvic prolapse. Digitally Signed by JENNIFER SAMS MD on 05/13/2024 11:46 AM [facility] 05-13-2024 History and physical note Date of Service 05/13/2024 History and Physical Update I have examined the patient; reviewed the History and Physical and there are no interval changes to the History and Physical unless noted below. Please see Dr. Eden's addendum, if applicable. History and Physical Chief Complaint PRE-OP CHECK SX SCHEDULED 05/06/24 History of Present Illness This is a 43-year-old female patient of Deborah Rasmussen APRN, CNM of [facility] who has a history of dysmenorrhea, and uterovaginal prolapse. Patient has been complaining of some heavy menstrual bleeding and dysmenorrhea, approximately 15 months ago she had an LG IUD inserted which improved her clotting. Patient however continued to have heavy bleeding and dysmenorrhea. She underwent an ultrasound in the emergency room which showed the IUD was in the correct position, follow-up ultrasound in the office showed concern for a potential endometrioma (ultrasound not available), patient has significant anterior and posterior vaginal prolapse as she is a para 5 with a history of 3rd degree laceration. She also complains of stress urinary incontinence, she has had pelvic floor physical therapy in the past which slightly improved her symptoms but did not resolve it. Patient denies symptoms of urge incontinence, stating she only feels that way when she thinks she has a urinary tract infection. I had a long discussion with the patient in regards to management options, including conservative management with a pessary, pelvic floor physical therapy, medical management of her heavy menstrual bleeding and dysmenorrhea, and definitive surgical management. After long discussion the patient does wish to proceed with definitive surgical management. Patient denies a history of abnormal Paps, and previous endometrial biopsy showed no evidence of malignancy or atypia. Patient wishes to avoid mesh if possible, therefore interested in tun[place] tissue repair and Bulkamid. Discussed possible unilateral salpingo-oophorectomy as we do not know the laterality of this patient's endometrioma. Risk benefits alternatives of a laparoscopic assisted vaginal hysterectomy were discussed including the risk of bleeding infection and injury to surrounding organs. Specifically discussed the risk of bleeding requiring transfusion, infection requiring extended antibiotic therapy or invasive treatment. Discussed injury to surrounding organs including the bowel bladder and ureters, requiring primary repair, prolonged catheterization, ureteral stents or reanastomosis. Also discussed the risk of vaginal cuff dehiscence, requiring emergency surgery to repair; pelvic rest of a minimum of 9 to 12 weeks discussed. Risks benefits alternatives of a laparoscopic unilateral salpingo-oophorectomy were discussed including the risk of bleeding infection and injury to surrounding organs. Specifically discussed the risks of ureteral injury requiring primary repair, ureteral stents or reanastomosis; bowel injury similarly requiring reanastomosis or resection; and vascular injury requiring transfusion, conversion to laparotomy, primary repair. Discussed the risks of surgical spillage of an ovarian cyst, with potential upstaging of occult malignancy. Discussed the risks of surgical menopause if premenopausal, including risk of all-cause mortality, specifically related to cardiovascular disease, as well as cancer other than ovarian cancer, osteoporosis and cognitive impairment. Patient understands these risks and wishes to proceed anterior colporrhaphy- specifically the risk of bladder perforation which could require prolonged catheterization and/or primary repair, ureteral injury secondary to plication, pain, infection, recurrent prolapse, dyspareunia, bleeding posterior colporrhaphy were discussed, specifically the risk of rectal perforation which could require primary repair and in rare cases colonic diversion, rectovaginal fistula perineorrhaphy were discussed, specifically the risk of rectal perforation which could require primary repair and in rare cases colonic diversion, rectovaginal fistula, and pain Risk benefits and alternatives of a vaginal uterosacral ligament fixation were discussed, including the risk of bleeding, infection, injury to surrounding organs. Specifically discussed the risk of ureteral obstruction or kinking requiring ureteral stenting, or reanastomosis. Discussed success rates for uterosacral ligament fixation (greater than 90%) as well as risk of recurrence (10 to 20%), increasing with advanced prolapse. Discussed that later prolapse of the anterior and posterior vaginal mahan is common, and that dyspareunia can occur after surgery. Also discussed the risk of occult urinary incontinence. Risk benefits and alternatives of urethral bulking were discussed with the patient, including the risk of bleeding infection and injury to surrounding organs. Specifically discussed the risk of urinary retention requiring intermittent self-catheterization, hematuria, and more frequent voiding. Patient denies any symptoms of urinary tract infection. Family History Breast cancer: Maternal Aunt. Cancer: Father. Health Status Family Member(s) Mother: History is negative Sister: History is negative Brother: History is negative Review of Systems see HPI Physical Exam Vital Signs and Measurements This Visit - Last 24 Hours T: 36.9 C (Oral) HR: 80 RR: 16 BP: 105/73 SpO2: 98% HT: 167.6 cm WT: 87.4 kg BMI: 31.11 General Appearance: No immediate distress Head: Normocephalic atraumatic Lungs: No increased work of breathing Abdomen: Soft Performance Scales and Status No documentation within the last 12 months Results 12/26/2023 endometrial biopsy: Polypoid fragments of benign endometrium with changes consistent with exogenous progesterone effect. [1] (10/31/2023 13:42 EDT US Pelvis Non-OB W/Transvaginal) [id number] ORIGINAL EXAMINATION: TRANSVAGINAL PELVIC ULTRASOUND 10/31/2023 TECHNIQUE: Transvaginal pelvic ultrasound was performed. COMPARISON: None HISTORY: ORDERING SYSTEM PROVIDED HISTORY: Reason for Exam: eval for ovarian torsion, rlq pain IUD inserted. FINDINGS: Measurements: Uterus: 8.0 x 5.6 x 4.1 Endometrial stripe: 5.6 mm Right Ovary:2.3 x 1.3 x 1.4 Left Ovary: 2.5 x 1.7 x 1.8 Ultrasound Findings: Uterus: Uterus demonstrates normal myometrial echotexture. Endometrial stripe: Endometrial stripe is within normal range and contains a echogenic focus representing the intrauterine device in appropriate location. Right Ovary: Right ovary is within normal limits. Left Ovary: Left ovary is within normal limits. Free Fluid: No evidence of free fluid. IMPRESSION: 1. Intrauterine device in appropriate location. 2. No acute pelvic process. [2] Digitally Signed by EUGENIO DILLON MD on 05/13/2024 09:32 AM [facility] 12-27-2023 Telephone encounter Note Patient referral placed for urogyn to discuss hysterectomy and possible surgical intervention for cystocele. She would like referral faxed to in [place] due to insurance. Office . Can you please send referral information to their office and mychart message patient when it is complete. Thank you, Deborah Rasmussen APRN.CNM [facility] 12-27-2023 Miscellaneous Notes Patient referral placed for urogyn to discuss hysterectomy and possible surgical intervention for cystocele. She would like referral faxed to in [place] due to insurance. Office . Can you please send referral information to their office and [employer] message patient when it is complete. Thank you, Deborah Rasmussen APRN.CNM documented in this encounter [facility] 12-26-2023 Note HNO ID: [id number] Author: DEBORAH RASMUSSEN APRN.CNM Service: ? Author Type: Development Mgr Type: Progress Notes Filed: 12/27/2023 22:02 Note Text: Butch is a 43 year old who presents today for an endometrial biopsy for heavy and irregular menses. test: negative UNIVERSAL PROTOCOL / SAFETY CHECKLIST Procedure to be Performed: Endometrial biopsy Sign In: A Moment of CARE was completed. Personnel directly involved with the procedure wore the appropriate PPE (Personal Protective Equipment). No special equipment needed. Patient/Surrogate Stated/Verified: PATIENT VERIFIED(optional for EMERGENT procedures): Patient name, Date of , Relevant allergies, and The intended procedure Time Out Communication: Intended patient and procedure match the source documents. Consent documented and matches the intended procedure. Relevant labs, photos, and/or imaging studies have been reviewed. Correct side/site marked and visible. No medications required for procedure. No fire risk assessment and interventions applicable. No implant(s) inserted. Sign Out: SIGN OUT (optional for EMERGENT procedures): All specimen containers correctly labeled. All instruments, equipment, possible retained foreign bodies accounted for. Post-procedure follow-up management communicated and Plan of Care Visit completed when applicable. PROCEDURE: EXTERNAL GENITALIA: Normal in appearance without lesions VAGINA: Normal in appearance without lesions BIOPSY: Speculum placed into the vagina with excellent visualization of the cervix. Cervix cleaned with betadine. Anterior lip of cervix grasped with single toothed tenaculum. Pipelle inserted into the uterus without difficulty and endometrial biopsy obtained. Specimen labeled and sent to pathology. Hemostasis achieved. Procedure Summary: Patient tolerated procedure well. ASSESSMENT: heavy menses PLAN: Specimens labeled and sent to Pathology. Will notify patient of results in 1-2 weeks. Reviewed ultrasound report and referral to uro gynecology to discuss surgical management. [facility] Instructions John Nelson MA - 12/26/2023 9:03 AM EDT YOUR RECOVERY After your biopsy you may have: Vaginal bleeding (less than a normal menstrual period) Mild cramping Do NOT put anything in the vagina for 1 week after your endometrial biopsy. This includes: tampons douches and refraining from having sexual intercourse If you have any discomfort, you may take an over the counter pain medication (motrin, advil, ibuprofen, tylenol, etc). If this does not relieve your discomfort, contact the office. It is okay to wear a sanitary pad until the discharge and spotting stops. RISKS Although problems seldom occur with endometrial biopsies, there can be some complications. You may feel faint during and shortly after the procedure as well as have some bleeding after the procedure. There is also a risk of infection after the procedure. These complications are rare and can be easily treated. You should contact you doctor is you have any of the following: Heavy bleeding (more than your normal period) Bleeding with clots Severe abdominal pain Fever (more than 100.4F) Foul smelling vaginal discharge RESULTS We will have the results of your biopsy in 1-2 weeks. If you do not hear the results of your biopsy after 2 weeks, please contact the office for the results. If you have any additional questions or concerns please do not hesitate to contact the office. documented in this encounter [facility] 12-26-2023 History of Present illness Narrative Butch is a 43 year old who presents today for an endometrial biopsy for heavy and irregular menses. test: negative UNIVERSAL PROTOCOL / SAFETY CHECKLIST Procedure to be Performed: Endometrial biopsy Sign In: A Moment of CARE was completed. Personnel directly involved with the procedure wore the appropriate PPE (Personal Protective Equipment). No special equipment needed. Patient/Surrogate Stated/Verified: PATIENT VERIFIED(optional for EMERGENT procedures): Patient name, Date of , Relevant allergies, and The intended procedure Time Out Communication: Intended patient and procedure match the source documents. Consent documented and matches the intended procedure. Relevant labs, photos, and/or imaging studies have been reviewed. Correct side/site marked and visible. No medications required for procedure. No fire risk assessment and interventions applicable. No implant(s) inserted. Sign Out: SIGN OUT (optional for EMERGENT procedures): All specimen containers correctly labeled. All instruments, equipment, possible retained foreign bodies accounted for. Post-procedure follow-up management communicated and Plan of Care Visit completed when applicable. PROCEDURE: EXTERNAL GENITALIA: Normal in appearance without lesions VAGINA: Normal in appearance without lesions BIOPSY: Speculum placed into the vagina with excellent visualization of the cervix. Cervix cleaned with betadine. Anterior lip of cervix grasped with single toothed tenaculum. Pipelle inserted into the uterus without difficulty and endometrial biopsy obtained. Specimen labeled and sent to pathology. Hemostasis achieved. Procedure Summary: Patient tolerated procedure well. ASSESSMENT: heavy menses PLAN: Specimens labeled and sent to Pathology. Will notify patient of results in 1-2 weeks. Reviewed ultrasound report and referral to uro gynecology to discuss surgical management. Deborah Rasmussen APRN.CNM documented in this encounter [facility] 12-22-2023 Telephone encounter Note Patient called requesting a sooner appointment with [facility]. No sooner openings. Patient wants an appointment with any provider for an EMB so that she can proceed with a hysterectomy. Scheduled with RM on Monday. Please place EMB order to attach to her appointment. Eduarda Allan RN [facility] 12-22-2023 Miscellaneous Notes Patient called requesting a sooner appointment with [facility]. No sooner openings. Patient wants an appointment with any provider for an EMB so that she can proceed with a hysterectomy. Scheduled with on Monday. Please place EMB order to attach to her appointment. Eduarda Allan RN documented in this encounter [facility] 12-11-2023 Note HNO ID: [id number] Author: DEBORAH RASMUSSEN APRN.CNM Service: ? Author Type: Development Mgr Type: Progress Notes Filed: 12/18/2023 19:22 Note Text: Butch is a 43 year old who presents for an annual gynecologic exam with complaints, heavy bleeding and pelvic pain. Feels she can hit cervix and string hanging out of vagina at times Incontinence of urine. Urinated 10 times due to leakage, urge is not present but leaking so afraid she is leaking. When more empty can't hold it. Does not have frequency. Menses: no menses - Mirena IUD. Bleeding every 2.5 weeks for 7 days. Heavy for first 3 days then light. Heavy days change super tampon about 6 times a day and uses 2 at a time. Pain has increased, mild pain throughout the month. Before, during, and after menses moderate to sever pain. Pain has taken her to the ED where she received Toradol and that helped. Pain can be 10/10 when severe. Taking toradol at home when pain is severe. Would like IUD removed and to discuss other options as this is effecting her daily life. Requesting hysterectomy if possible. EMB 04/06/22 Contraception: IUD HPV vaccine: No Last Pap: 06/25/2018 normal HPV: 06/22/2018 negative History of abnormal pap: No Last mammogram: 2021normal Sexually active: Yes Time with current partner: , together since 1996, in 2001 Pain with intercourse: yes, when hitting cerix Postcoital bleeding: No Exercise: None Diet: Feels she does well. Seatbelt use: Yes OB History T0 L5 SAB0 IAB0 Ectopic0 Multiple0 Live Births0 Collections Associate History LMP: 04/17/2022 (Exact Date), IUD Age at Menarche: Age at First : Age at Menopause: Collections Associate History Comments: Sexual Activity: Yes; Male Contraception: Condom PAST MEDICAL HISTORY Diagnosis Date Cephalgia Pseudotumor cerebri Pyelonephritis PAST SURGICAL HISTORY Procedure Laterality Date APPENDECTOMY 08/21/1999 COLONOSCOPY GEN ANES 05/27/2021 lax anal sphincter, neg biopsies EGD 05/27/2021 mild chronic gastritis PAST SURGICAL HISTORY OF 08/21/2004 Sinus surgery PAST SURGICAL HISTORY OF Right 07/2021 Shoulder surgery FAMILY HISTORY Problem Relation Age of Onset No Known Problems Mother Hypertension Father Cancer Father No Known Problems Sister Hypertension Brother No Known Problems Brother Alzheimer's Disease Maternal Grandmother No Known Problems Paternal Grandmother No Known Problems Paternal Grandfather Arthritis Daughter Colon Cancer No Family History SOCIAL HISTORY Social History Tobacco Use Smoking status: Never Smokeless tobacco: Never Vaping Use Vaping Use: Never used Substance Use Topics Alcohol use: No Drug use: No REVIEW OF SYSTEMS Abdomen: No abdominal pain, nausea, vomiting, diarrhea, or constipation. No bloating, early satiety, indigestion, or increased flatulence. Bladder: No dysuria, gross hematuria, urinary frequency, urinary urgency, or incontinence. Breast: No breast lumps, nipple d/c, overlying skin changes, redness or skin retraction. Allergies and current medication updated:Yes EXAM: BP 116/74 Wt 197 lb 3.2 oz (89.4kg) LMP 04/17/2022 GENERAL: pleasant, female in no apparent distress HEENT: Normocephalic, atraumatic, mucus membranes moist, and no lesions NECK: Supple, full range of motion, no adenopathy, and thyroid normal DERMATOLOGY: Normal, without lesions, non-icteric, and non-hirsute BREAST: soft, non-tender, symmetric, no dominant mass, normal nipple-areolar complex, no lymphadenopathy, and no nipple discharge CHEST: Clear to auscultation, Normal inspiratory effort, Regular rate and rhythm, and No murmurs, clicks, rubs or gallops ABDOMEN: soft, distended and no masses, Right lower quadrant pain with palpation. PELVIC: external genitalia normal, normal Bartholin's glands, urethra, New[place]'s glands, no vulvar lesions, no cervical lesions, good vaginal support, normal appearing perineal body and perianal region, cystocele 2nd degree, rectocele 1st degree, cervical prolapse 1st degree. IUD strings present. BIMANUAL: uterus normal size, shape and consistency, no adnexal masses. No CMT. Midline pain and RLQ pain, rating 5/10, sharp. RECTOVAGINAL: deferred. NEURO: alert and oriented x3,exam grossly non-focal EXTREMITIES: normal ASSESSMENT/PLAN: 1. Encounter for gynecological examination (general) (routine) with abnormal findings - ICD9: V72.31, ICD10: Z01.411 (primary diagnosis) - Completed pelvic and breast exam - Encouraged monthly BSE - Follow up for annual exam in one year. - PAP TEST - BACTERIAL VAGINOSIS NAAT - BARB/TRICHOMONAS NAAT - HIGH RISK HUMAN PAPILLOMA VIRUS (HPV), PCR FOR DETECTION AND GENOTYPING 2. Screening for cervical cancer - ICD9: V76.2, ICD10: Z12.4 - Completed pelvic and breast exam - Encouraged monthly BSE - Follow up for annual exam in one year. - PAP TEST - HIGH RISK HUMAN PAPILLOMA VIRUS (HPV), PCR (more content not included)... [facility] 12-11-2023 History of Present illness Narrative Butch is a 43 year old who presents for an annual gynecologic exam with complaints, heavy bleeding and pelvic pain. Feels she can hit cervix and string hanging out of vagina at times Incontinence of urine. Urinated 10 times due to leakage, urge is not present but leaking so afraid she is leaking. When more empty can't hold it. Does not have frequency. Menses: no menses - Mirena IUD. Bleeding every 2.5 weeks for 7 days. Heavy for first 3 days then light. Heavy days change super tampon about 6 times a day and uses 2 at a time. Pain has increased, mild pain throughout the month. Before, during, and after menses moderate to sever pain. Pain has taken her to the ED where she received Toradol and that helped. Pain can be 10/10 when severe. Taking toradol at home when pain is severe. Would like IUD removed and to discuss other options as this is effecting her daily life. Requesting hysterectomy if possible. EMB 04/06/22 Contraception: IUD HPV vaccine: No Last Pap: 06/25/2018 normal HPV: 06/22/2018 negative History of abnormal pap: No Last mammogram: 2021normal Sexually active: Yes Time with current partner: , together since 1996, in 2001 Pain with intercourse: yes, when hitting cerix Postcoital bleeding: No Exercise: None Diet: Feels she does well. Seatbelt use: Yes OB History T0 L5 SAB0 IAB0 Ectopic0 Multiple0 Live Births0 Collections Associate History LMP: 04/17/2022 (Exact Date), IUD Age at Menarche: Age at First : Age at Menopause: Collections Associate History Comments: Sexual Activity: Yes; Male Contraception: Condom PAST MEDICAL HISTORY Diagnosis Date Cephalgia Pseudotumor cerebri Pyelonephritis PAST SURGICAL HISTORY Procedure Laterality Date APPENDECTOMY 08/21/1999 COLONOSCOPY GEN ANES 05/27/2021 lax anal sphincter, neg biopsies EGD 05/27/2021 mild chronic gastritis PAST SURGICAL HISTORY OF 08/21/2004 Sinus surgery PAST SURGICAL HISTORY OF Right 07/2021 Shoulder surgery FAMILY HISTORY Problem Relation Age of Onset No Known Problems Mother Hypertension Father Cancer Father No Known Problems Sister Hypertension Brother No Known Problems Brother Alzheimer's Disease Maternal Grandmother No Known Problems Paternal Grandmother No Known Problems Paternal Grandfather Arthritis Daughter Colon Cancer No Family History SOCIAL HISTORY Social History Tobacco Use Smoking status: Never Smokeless tobacco: Never Vaping Use Vaping Use: Never used Substance Use Topics Alcohol use: No Drug use: No REVIEW OF SYSTEMS Abdomen: No abdominal pain, nausea, vomiting, diarrhea, or constipation. No bloating, early satiety, indigestion, or increased flatulence. Bladder: No dysuria, gross hematuria, urinary frequency, urinary urgency, or incontinence. Breast: No breast lumps, nipple d/c, overlying skin changes, redness or skin retraction. Allergies and current medication updated:Yes EXAM: BP 116/74 Wt 197 lb 3.2 oz (89.4kg) LMP 04/17/2022 GENERAL: pleasant, female in no apparent distress HEENT: Normocephalic, atraumatic, mucus membranes moist, and no lesions NECK: Supple, full range of motion, no adenopathy, and thyroid normal DERMATOLOGY: Normal, without lesions, non-icteric, and non-hirsute BREAST: soft, non-tender, symmetric, no dominant mass, normal nipple-areolar complex, no lymphadenopathy, and no nipple discharge CHEST: Clear to auscultation, Normal inspiratory effort, Regular rate and rhythm, and No murmurs, clicks, rubs or gallops ABDOMEN: soft, distended and no masses, Right lower quadrant pain with palpation. PELVIC: external genitalia normal, normal Bartholin's glands, urethra, [place]'s glands, no vulvar lesions, no cervical lesions, good vaginal support, normal appearing perineal body and perianal region, cystocele 2nd degree, rectocele 1st degree, cervical prolapse 1st degree. IUD strings present. BIMANUAL: uterus normal size, shape and consistency, no adnexal masses. No CMT. Midline pain and RLQ pain, rating 5/10, sharp. RECTOVAGINAL: deferred. NEURO: alert and oriented x3,exam grossly non-focal EXTREMITIES: normal ASSESSMENT/PLAN: 1. Encounter for gynecological examination (general) (routine) with abnormal findings - ICD9: V72.31, ICD10: Z01.411 (primary diagnosis) - Completed pelvic and breast exam - Encouraged monthly BSE - Follow up for annual exam in one year. - PAP TEST - BACTERIAL VAGINOSIS NAAT - BARB/TRICHOMONAS NAAT - HIGH RISK HUMAN PAPILLOMA VIRUS (HPV), PCR FOR DETECTION AND GENOTYPING 2. Screening for cervical cancer - ICD9: V76.2, ICD10: Z12.4 - Completed pelvic and breast exam - Encouraged monthly BSE - Follow up for annual exam in one year. - PAP TEST - HIGH RISK HUMAN PAPILLOMA VIRUS (HPV), PCR FOR DETECTION AND GENOTYPING 3. Encounter for screening for human papillomavirus (HPV) - ICD9: V73.81, ICD10: Z11.51 - PAP TEST - HIGH RISK HUMAN PAPILLOMA VIRUS (HPV), PCR FOR DETECTION AND GENOTYPING 4. Encounter for screening mammogram for breast cancer - ICD9: V76.12, ICD10: Z12.31 - Completed pelvic and breast exam - Encouraged monthly BSE - Follow up for annual exam in one year. - CHRISTIANA SCREENING W MONIQUE 5. Dense breast tissue - ICD9: 793.82, ICD10: R92.30 - CHRISTIANA SCREENING W MONIQUE 6. Unintended weight gain - ICD9: 783.1, ICD10: R63.5 - THYROID STIMULATING HORMONE - COMPREHENSIVE METABOLIC PANEL - LIPID PANEL BASIC - COMPLETE BLOOD COUNT AND DIFFERENTIAL - HEMOGLOBIN A1C - VITAMIN D 25 HYDROXY - TESTOSTERONE, FREE AND TOTAL - DHEA-S BLD - HYDROXYPROGESTERONE-17 7. Menorrhagia with regular cycle - ICD9: 626.2, ICD10: N92.0 - TESTOSTERONE, FREE AND TOTAL - DHEA-S BLD - HYDROXYPROGESTERONE-17 - BACTERIAL VAGINOSIS NAAT - BARB/TRICHOMONAS NAAT 8. IUD check up - ICD9: V25.42, ICD10: Z30.431 9. Pelvic pain in female - ICD9: 625.9, ICD10: R10.2 Pelvic US. Patient is requesting hysterectomy due to ongoing pain and discomfort. Cystocele present, may need referral to urogyn for management. Will discuss with physician after results. 1) Health maintenance: Pap done with HPV. Mammogram ordered. Nutrition, exercise and routine health maintenance exams reviewed. Calcium/Vitamin D supplementation information provided. Lipids/glucose: Ordered Vitamin D: Ordered 2) Contraception: IUD. Contraceptive options reviewed and information provided. 3) STD screening: Declined STD check. 4) Follow up one year or sooner as needed Deborah Rasmussen APRN.CNM documented in this encounter [facility] 11-24-2023 Miscellaneous Notes Patient called in and scheduled. Iris Quinn RN Per [facility] patient has [employer] and is planning to call in to update insurance. She is to be scheduled for [facility] u/s and f/u with [facility] sameday. 12/10 9am u/s and 10:30 with [facility] placed on hold for patient and patient is aware. Will schedule once insurance is updated. Iris Quinn RN documented in this encounter [facility] 10-31-2023 Hospital Discharge instructions Patient Education 10/31/2023 14:38:38 Abdominal Pain, Unknown Cause, (Female) Unknown Causes of Abdominal Pain (Female) The exact cause of your belly (abdominal) pain is not clear. This does not mean that this is something to worry about. Everyone likes to know the exact cause of the problem. But sometimes with belly pain, there is no clear-cut cause, and this could be a good thing. The good news is that your symptoms can be treated, and you will feel better. Your condition does not seem serious now. But sometimes the signs of a serious problem may take more time to appear. For this reason, it is important for you to watch for any new symptoms, problems, or worsening of your condition. Over the next few days, the abdominal pain may come and go. Or it may be constant. Other common symptoms can include nausea and vomiting. Sometimes it can be difficult to tell if you feel nauseous. You may just feel bad and not connect that feeling to nausea. Constipation, diarrhea, and a fever may go along with the pain. The pain may continue even if treated correctly over the following days. Depending on how things go, sometimes the cause can become clear and may need more or different treatment. Additional evaluations, medicines, or tests may also be needed. Home care Your healthcare provider may prescribe medicine for pain, symptoms, or an infection. Follow the healthcare provider's instructions for taking these medicines. General care Rest as much as you can until your next exam. No strenuous activities. Try to find positions that ease discomfort. A small pillow placed on the abdomen may help relieve pain. Something warm on your abdomen (such as a heating pad) may help, but be careful not to burn yourself. Diet Don t force yourself to eat, especially if having cramps, vomiting, or diarrhea. Water is important so you don't get dehydrated. Soup may also be good. Sports drinks may also help, especially if they are not too acidic. Don't drink sugary drinks as this can make things worse. Take liquids in small amounts. Don t guzzle them. Caffeine sometimes makes the pain and cramping worse. Don t take dairy products if you have vomiting or diarrhea. Don't eat large amounts at a time. Wait a few minutes between bites. Eat a diet low in fiber (called a low-residue diet). Foods allowed include refined breads, white rice, fruit and vegetable juices without pulp, tender meats. These foods will pass more easily through the intestine. Don t have whole-grain foods, whole fruits and vegetables, meats, seeds and nuts, fried or fatty foods, dairy, alcohol and spicy foods until your symptoms go away. Follow-up care Follow up with your healthcare provider, or as advised, if your pain does not begin to improve in the next 24 hours. Call 911 Call 911 if any of these occur: Trouble breathing Confusion Fainting or loss of consciousness Rapid heart rate Seizure When to seek medical advice Call your healthcare provider right away if any of these occur: Pain gets worse or moves to the right lower abdomen New or worsening vomiting or diarrhea Swelling of the abdomen Unable to pass stool for more than 3 days Fever of 100.4 F (38 C) or higher, or as directed by your healthcare provider. Blood in vomit or bowel movements (dark red or black color) Yellow color of eyes and skin (jaundice) Weakness, dizziness Chest, arm, back, neck, or jaw pain Unexpected vaginal bleeding or missed period Can't keep down liquids or water and you are getting dehydrated [id number] [employer]. [address] [place] [address], [place] [address]. All rights reserved. This information is not intended as a substitute for professional medical care. Always follow your healthcare professional's instructions. Follow Up Care 10/31/2023 11:35:43 With:MARIA FERNANDA BARRIENTOS Address: [address] [place] [address] [address] [place] [phone] Business (1) When:2-4 days Comments:Follow-up with your doctor, enrollment nurse, do not take ibuprofen or naproxen or other NSAIDs with Toradol. You may take Tylenol with time, as discussed, return if any worsening symptoms such as severe pain vomiting fever or other concerning symptoms. [facility] 10-31-2023 Emergency department Discharge summary Discharge Instructions Thank you for allowing [place] to assist you with your healthcare needs. The following is important discharge information regarding your hospital visit. Diagnosis from Today's Visit Abdominal pain Abdominal pain Vomiting What to Do Next Instructions from Your Care Team No qualifying data available. Post Acute Orders No qualifying data available. You Need to Schedule the Following Appointments Follow Up with MARIA FERNANDA BARRIENTOS When Within 2-4 days Why: Follow-up with your doctor, enrollment nurse, do not take ibuprofen or naproxen or other NSAIDs with Toradol. You may take Tylenol with time, as discussed, return if any worsening symptoms such as severe pain vomiting fever or other concerning symptoms. Where: [address] [place] [address] [address] [place] [phone] [facility] (1) Allergies NKA Medications Please ask your primary doctor or pharmacist before taking any other medication not listed, including over the counter drugs, herbal medications, vitamins and or supplements as they may interact with your home medications. What How Much When Instructions Last Dose New ketorolac (ketorolac 10 mg oral tablet) 1 tab(s) by mouth Four (4) times a day as needed for as needed for pain Duration: 3 Days not to exceed 40 mg/ day and 5 days duration for all dose forms Printed Prescription Unchanged ibuprofen (Motrin) Please take this list to your next doctor s visit. Bring all medications you take, including over the counter medications, herbals and other supplements with you to your doctor s visit. Patients and families are reminded to discard old lists and to update any records with all medication providers or retail pharmacies. Education Materials Unknown Causes of Abdominal Pain (Female) The exact cause of your belly (abdominal) pain is not clear. This does not mean that this is something to worry about. Everyone likes to know the exact cause of the problem. But sometimes with belly pain, there is no clear-cut cause, and this could be a good thing. The good news is that your symptoms can be treated, and you will feel better. Your condition does not seem serious now. But sometimes the signs of a serious problem may take more time to appear. For this reason, it is important for you to watch for any new symptoms, problems, or worsening of your condition. Over the next few days, the abdominal pain may come and go. Or it may be constant. Other common symptoms can include nausea and vomiting. Sometimes it can be difficult to tell if you feel nauseous. You may just feel bad and not connect that feeling to nausea. Constipation, diarrhea, and a fever may go along with the pain. The pain may continue even if treated correctly over the following days. Depending on how things go, sometimes the cause can become clear and may need more or different treatment. Additional evaluations, medicines, or tests may also be needed. Home care Your healthcare provider may prescribe medicine for pain, symptoms, or an infection. Follow the healthcare provider's instructions for taking these medicines. General care Rest as much as you can until your next exam. No strenuous activities. Try to find positions that ease discomfort. A small pillow placed on the abdomen may help relieve pain. Something warm on your abdomen (such as a heating pad) may help, but be careful not to burn yourself. Diet Don t force yourself to eat, especially if having cramps, vomiting, or diarrhea. Water is important so you don't get dehydrated. Soup may also be good. Sports drinks may also help, especially if they are not too acidic. Don't drink sugary drinks as this can make things worse. Take liquids in small amounts. Don t guzzle them. Caffeine sometimes makes the pain and cramping worse. Don t take dairy products if you have vomiting or diarrhea. Don't eat large amounts at a time. Wait a few minutes between bites. Eat a diet low in fiber (called a low-residue diet). Foods allowed include refined breads, white rice, fruit and vegetable juices without pulp, tender meats. These foods will pass more easily through the intestine. Don t have whole-grain foods, whole fruits and vegetables, meats, seeds and nuts, fried or fatty foods, dairy, alcohol and spicy foods until your symptoms go away. Follow-up care Follow up with your healthcare provider, or as advised, if your pain does not begin to improve in the next 24 hours. Call 911 Call 911 if any of these occur: Trouble breathing Confusion Fainting or loss of consciousness Rapid heart rate Seizure When to seek medical advice Call your healthcare provider right away if any of these occur: Pain gets worse or moves to the right lower abdomen New or worsening vomiting or diarrhea Swelling of the abdomen Unable to pass stool for more than 3 days Fever of 100.4 F (38 C) or higher, or as directed by your healthcare provider. Blood in vomit or bowel movements (dark red or black color) Yellow color of eyes and skin (jaundice) Weakness, dizziness Chest, arm, back, neck, or jaw pain Unexpected vaginal bleeding or missed period Can't keep down liquids or water and you are getting dehydrated [id number] [employer]. [address] [place] [address]. All rights reserved. This information is not intended as a substitute for professional medical care. Always follow your healthcare professional's instructions. Additional Information VACCINATE! IT SAVES LIVES! Members of the community who have not yet received the COVID-19 vaccine and would like to receive it can visit one of [facility] vaccine clinics. There are many vaccine clinic locations within the [facility]. For locations and available times, please visit www.gettheshot.[email or web address].[place].gov /. It is important to note that some COVID mobile vaccine clinics are held outdoors and may be canceled in rainy or stormy conditions. To learn more about pediatric vaccinations (ages 5-11), we invite you to visit the [facility] webpage. [email or web address] To learn more about the COVID-19 vaccine, we invite you to visit the CDC website for a list of frequently asked questions. https://www.cdc.gov/coronavirus/201 9-ncov/vaccines/faq.html [facility] Patient Portal Access Instructions: Stay connected with your healthcare team and access your personal medical information anytime with the [facility] Patient Portal. If you would like a full copy of your medical records please contact the [facility] Medical Records Department Monday through Monday between 8a.m. and 4:30p.m. Please follow the directions below to access the portal: 1.Access the email account you provided upon registration to the [facility].2.Look for an invitation email from [facility].3.Open the email and access the invitation link: Accept Invitation to [facility]4.Fill in the required barajas to create your account. Sign into [email or web address] with your username and password that you created in the above steps to stay up to date. You can then view a summary of results, a summary of your visits, and the ability to download your summaries to your computer or send the information securely to a physician. Remember that your healthcare information is confidential, so carefully consider who you will allow to register on the [facility] Patient Portal for access to your information. You can also access the [facility] Patient Portal on the [employer]. Simply click on Health Records under Health Data and then click on the [facility] logo. HOW TO SAFELY DISPOSE OF PRESCRIPTION MEDICATIONS Please use one of the following methods to safely dispose of your unused medications. 1.Use a drug disposal kit: the drug disposal pouch allows you to safely discard your old and unused drugs. Ask your nurse to give you one when you are discharged.2.Visit a local take-back location: Many local pharmacies and police departments have programs that collect old and unwanted prescription drugs. Call your local pharmacy or go to http://[employer] [place] [employer]/1N1Hq8v to find one close to you.3.Make use of household items: Use cat litter or old coffee grounds to dispose medications if other options are not available. Mix your drugs with these household products, seal them in an airtight container and throw it into the garbage. Call [facility]: [phone] to be sure your drugs can be disposed of in this way. Some medicines may require a different approach.4.Never flush your medications down the toilet. IF YOU HAVE BEEN PRESCRIBED AN OPIOIDS FOR PAIN If you have been prescribed an opioid (such as hydrocodone, oxycodone or morphine), it is critical to understand the possible side effects and risks of opioid pain medications. Even when taken as directed, opioids can have several side effects including: Tolerance, meaning you might need to take more of a medication for the same pain relief. Nausea, vomiting and/or constipation. Sleepiness, dizziness, dry mouth, confusion, depression or itching. Physical dependence, meaning you have withdrawal symptoms when a medication is stopped ? this can develop within a few days. KNOW YOUR RESPONSIBILITIES It is important to know exactly how much and how often to take the opioid pain medications you are prescribed. Never take opioids in higher amounts or more often than prescribed. Do not combine opioids with alcohol or other drugs that cause drowsiness, such as benzodiazepines, also known as benzos, including diazepam and alprazolam, muscle relaxants or sleep aids. Never sell or share prescription opioids. This is illegal. Store opioids in a secure place and out of reach of others (including children, family, friends and visitors). The last page(s) of this document has been signed and retained as a CHART COPY Signatures Patient Education Materials Abdominal Pain, Unknown Cause, (Female) Medication Leaflets My discharge plan and instructions have been reviewed and explained to me and I,BUTCH KELLY M understand my current condition and have read and understand these discharge instructions. I have received a written copy of the plan/instructions. If I have questions, I am aware that I should contact my doctor. 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 COMPARISON: None HISTORY: ORDERING SYSTEM PROVIDED HISTORY: Reason for Exam: eval for ovarian torsion, rlq pain IUD inserted. FINDINGS: Measurements: Uterus: 8.0 x 5.6 x 4.1 Endometrial stripe: 5.6 mm Right Ovary:2.3 x 1.3 x 1.4 Left Ovary: 2.5 x 1.7 x 1.8 Ultrasound Findings: Uterus: Uterus demonstrates normal myometrial echotexture. Endometrial stripe: Endometrial stripe is within normal range and contains a echogenic focus representing the intrauterine device in appropriate location. Right Ovary: Right ovary is within normal limits. Left Ovary: Left ovary is within normal limits. Free Fluid: No evidence of free fluid. IMPRESSION: 1. Intrauterine device in appropriate location. 2. No acute pelvic process. Interpreted by: Louis Saenz DO Preliminary Report By: Louis Saenz DO Electronically signed By Louis Saenz DO Dictated Date: 10/31/2023 2:11:08 PM Prelim Date: 10/31/2023 2:18:48 PM Sign Date: 10/31/2023 2:18:48 PM Ordering Provider: [facility] 09-22-2022 History of Present illness Narrative Butch Kelly presents today for IUD check. She had a Mirena placed on 08/17/23. She has had no complications since placement. REVIEW OF SYSTEMS: GENERAL: Negative for fever PHYSICAL EXAMINATION: BP 100/64 LMP 04/17/2022 GEN: Female in NAD Had ultrasound today which shows IUD in proper location. IMPRESSION/PLAN: IUD correctly positioned. Reviewed Mirena IUD bleeding expectations and when to call. RTO for yearly exams. I spent a total of 10 minutes on the date of the service which included preparing to see the patient, [id number] patient care, completing clinical documentation, obtaining and/or reviewing separately obtained history, performing a medically appropriate examination, and counseling and educating the patient/family/caregiver. Meme Gibson MD documented in this encounter [facility] 08-17-2022 Instructions Sally Russell Ma - 08/17/2022 9:17 AM EST POST IUD INSTRUCTIONS You may have irregular bleeding during the first 3 months of use. You may have mild-severe cramping for the next 48 hours. You may use over the counter medication (Motrin, Tylenol) as needed. Your IUD must be removed or replaced based on the following table: IUD Type Removed or replaced within: Kaitlin 3 years Kyleena 5 years Mirena 8 years Paragard 10 years Call my office for signs/symptoms of infection such as severe cramping, fever, or unusual bleeding. Check for string placement as instructed by your doctor. If you have any additional questions, please contact the office. documented in this encounter [facility] 08-17-2022 History of Present illness Narrative Butch Kelly presents for IUD REMOVAl with ENDOSEE/hysteroscopy. Indication: IUD strings lost . Age: [age] year old LMP: Patient's last menstrual period was 04/17/2022 (exact date). Contraception: Mirena IUD test: negative VS: BP 110/64 Wt 182 lb (82.6kg) LMP 04/17/2022 UNIVERSAL PROTOCOL / SAFETY CHECKLIST Procedure to be Performed: IUD removal with ENDOSEE and reinsertion of mirena IUD Sign In: A Moment of CARE was completed. Personnel directly involved with the procedure wore the appropriate PPE (Personal Protective Equipment). Patient/Surrogate Stated/Verified: PATIENT VERIFIED(optional for EMERGENT procedures): Patient name, Date of , Relevant allergies, and The intended procedure Time Out Communication: Intended patient and procedure match the source documents. Consent documented and matches the intended procedure. Sign Out: SIGN OUT (optional for EMERGENT procedures): No specimen collected. Meme Gibson MD OBJECTIVE: Cervix cleaned with betadine. A single tooth tenaculum was used to grasp cervix. Cervix was dilated. Unable to place camera due to significant retroflexed uterus. At this time IUD hook used to dislodge IUD- then long suad used to grasp iud- IUD removed intact. PROCEDURE SUMMARY: Patient tolerated procedure well. ASSESMENT: IUD malposition and strings lost- Hysteroscopy not able to be performed. Multiple attempts made. IUD removed successfully PLAN: IUD to be placed. MD Butch Shepherd presents today for IUD insertion for contraception, dysmenorrhea, menstrual dysfunction. Patient's last menstrual period was 04/17/2022 (exact date). GC/chlamydia: Not done: no risk factors and/or patient declines screening test: negative Side effects including irregular bleeding were discussed with the patient. The patient understands that it should be removed in 8 years or sooner if the patient desires a . IUD source: office provided IUD lot #: [id number] Exp date: 08/2024 UNIVERSAL PROTOCOL / SAFETY CHECKLIST Procedure to be Performed: IUD removal with ENDOSEE and IUD mirena INSERTION Sign In: A Moment of CARE was completed. Personnel directly involved with the procedure wore the appropriate PPE (Personal Protective Equipment). Patient/Surrogate Stated/Verified: PATIENT VERIFIED(optional for EMERGENT procedures): Patient name, Date of , Relevant allergies, and The intended procedure Time Out Communication: Intended patient and procedure match the source documents. Consent documented and matches the intended procedure. Sign Out: SIGN OUT (optional for EMERGENT procedures): No specimen collected. The cervix was prepped with betadine. The uterus sounded to 9 cm and the uterus is Retroverted.. Using sterile technique, the Mirena IUD was inserted without difficulty and the string was cut to 2cm from the external os of the cervix. Patient tolerated procedure well. PLAN: Patient was advised to observe for signs and symptoms of infection including but not limited to fever, malodorous vaginal discharge and/or pain. The patient was told to check the string monthly for accurate placement. Bleeding expectations were reviewed. Follow up 4 weeks Pelvic us to confirm placement . Meme Gibson MD documented in this encounter [facility] 06-20-2022 Miscellaneous Notes Images from the original note were not included. [facility] approved Approved 06/17/2022 12:30 PM Sending user: Teresa Gorman Ma Payer: [employer] [phone] Submitted via covermymeds to [facility] Butch Kelly (Mike: [id number]) Nurtec 75MG dispersible tablets Received prior auth request for Nurtec. Scanned to patient's chart for review. documented in this encounter [facility] 06-16-2022 History of Present illness Narrative Butch Kelly presents today for IUD check. She had a Mirena placed on 05/17/2022. Was able to feel strings one week post placement. Attempted to feel strings this week and unable to palpate. She has had heavy bleeding and cramping since placement. Bleeding every day since placement. 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 Bleeding for 3 days Then had light old blood spotting 06/16/22-Bleeding and clots but costume technician and smaller than before. Pain is increased though like before, has been taking Motrin. Shedd causes bright red bleeding and no clots. Used Higgins Skin Condom and improved REVIEW OF SYSTEMS: PAIN ASSESSMENT: Negative for pain, history of chronic pain, or current treatment for a chronic pain condition. 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 Patient happy with results of IUD and would like to keep in place at this time. Will follow up in 2 months for IUD evaluation. Continue to use higgins skin condoms as this has brought resolution of vulvar complaints with intercourse. If no resolution for bleeding after intercourse in 2 months, will discuss treatment for cervicitis or possible silver nitrate. Follow up for annual exam or sooner if needed. documented in this encounter [facility] 06-14-2022 Miscellaneous Notes Patient called and appointment scheduled. Mona Stevens RN documented in this encounter [facility] 05-18-2022 Miscellaneous Notes [employer] approval received by fax and scanned to patient's chart. documented in this encounter [facility] 05-17-2022 Instructions John Nelson Cma - 05/17/2022 9:42 AM EDT POST IUD INSTRUCTIONS You may have irregular bleeding during the first 3 months of use. You may have mild-severe cramping for the next 48 hours. You may use over the counter medication (Motrin, Tylenol) as needed. Your IUD must be removed or replaced based on the following table: IUD Type Removed or replaced within: Kaitlin 3 years Kyleena 5 years Mirena 8 years Paragard 10 years Call my office for signs/symptoms of infection such as severe cramping, fever, or unusual bleeding. Check for string placement as instructed by your doctor. If you have any additional questions, please contact the office. documented in this encounter [facility] 05-17-2022 History of Present illness Narrative Butch presents today for IUD insertion for dysmenorrhea. Patient's last menstrual period was 04/17/2022 (exact date). GC/chlamydia: Not done: no risk factors and/or patient declines screening test: negative Side effects including irregular bleeding were discussed with the patient. The patient understands that it should be removed in 8 years or sooner if the patient desires a . IUD source: office provided IUD lot #: [id number] Exp date: 05/2024 UNIVERSAL PROTOCOL / SAFETY CHECKLIST Procedure to be Performed: Mirena IUD Insertion Sign In: A Moment of CARE was completed. Personnel directly involved with the procedure wore the appropriate PPE (Personal Protective Equipment). Special equipment: Uterine sound, tenaculum Patient/Surrogate Stated/Verified: PATIENT VERIFIED(optional for EMERGENT procedures): Patient name, Date of , Relevant allergies, and The intended procedure Time Out Communication: Intended patient and procedure match the source documents. Consent documented and matches the intended procedure. Relevant labs, photos, and/or imaging studies have been reviewed. Correct side/site marked and visible. No medications required for procedure. No fire risk assessment and interventions applicable. Implant(s) inserted: Correct implant(s) confirmed including size and side. and Expiration date(s) reviewed. Sign Out: SIGN OUT (optional for EMERGENT procedures): No specimen collected. All instruments, equipment, possible retained foreign bodies accounted for. Post-procedure follow-up management communicated and Plan of Care Visit completed when applicable. The uterus sounded to 9 cm and the uterus is Retroverted.. After prepping the cervix with betadine and using sterile technique, the Mirena IUD was inserted without difficulty and the string was cut to 3cm from the external os of the cervix. Patient tolerated procedure well. PLAN: Patient was advised to observe for signs and symptoms of infection including but not limited to fever, malodorous vaginal discharge and/or pain. The patient was told to check the string monthly for accurate placement. Bleeding expectations were reviewed. Follow up in one month. Deborah Rasmussen APRN.CNM documented in this encounter [facility] 03-11-2022 Instructions Deborah Rasmussen APRN.CNM - 03/11/2022 11:46 AM EDT Treat with Flagyl first, then diflucan, then start probiotic After diflucan is completed can start temovate ointment Temovate at bedtime for 4 weeks, then every other day for 4 weeks, then twice weekly for 4 weeks then as needed. Send me a message after 4 weeks to let me know how it is working and if we need to switch plan. VULVAR BIOPSY PATIENT INSTRUCTIONS Many conditions may cause your enrollment nurse to suggest a vulvar biopsy including vulvar itching unresponsive to therapy, ulcerated lesions, pigmented lesions, and tumors. The biopsy result will assist your enrollment nurse to devise a treatment plan suitable to your condition. 1. Usually, there is a local discomfort, swelling, and skin discoloration. Using cold compresses overnight usually alleviates the discomfort considerably. Warm compresses thereafter can be used as needed. Prescribed analgesic (pain killers) are not necessary. You may use Advil, Tylenol, etc. for pain relief. 2. You may shower or take tub baths. 3. If sutures are used, they will dissolve in 7-14 days. 4. You should call the office if there is excessive bleeding, swelling, fever, chills, sweats, or difficulty walking. 5. Biopsy results will be available in 7-10 days. If you have not heard your results in 2 weeks please contact your physician. documented in this encounter [facility] 03-11-2022 History of Present illness Narrative Butch Kelly is a 41 year old female who presents today for a vulvar biopsy. Indication: persistent pruritis. UNIVERSAL PROTOCOL / SAFETY CHECKLIST Procedure to be Performed: vulvar biopsy Sign In: A Moment of CARE was completed. Personnel directly involved with the procedure wore the appropriate PPE (Personal Protective Equipment). Special equipment: 3 gab Patient/Surrogate Stated/Verified: PATIENT VERIFIED(optional for EMERGENT procedures): Patient name, Date of , Relevant allergies and The intended procedure Time Out Communication: Intended patient and procedure match the source documents. Consent documented and matches the intended procedure. Relevant labs, photos, and/or imaging studies have been reviewed. Correct side/site marked and visible. Medications required for procedure verified. No fire risk assessment and interventions applicable. No implant(s) inserted. Sign Out: SIGN OUT (optional for EMERGENT procedures): All specimen containers correctly labeled. No instruments, equipment or retained foreign bodies applicable. Post-procedure follow-up management communicated and Plan of Care Visit completed when applicable. PROCEDURE NOTE: GROSS LESIONS: No BIOPSY: Area was cleansed with betadine and anesthetized with 1mL 1% lidocaine with 1:100,000 epi. 3mm Gab punch used to biopsy region. HEMOSTASIS: Obtained with silver nitrate Procedure Summary: Patient tolerated procedure well. ASSESSMENT: 1. Vulvar itching - ICD9: 698.1, ICD10: L29.2 (primary diagnosis) - SURGICAL PATHOLOGY -Temovate ointment to vulva at at bedtime for 4 weeks then every other day for 4 weeks then 3 times weekly. Patient to notify office if any resolution or no improvement. Discussed possible vulvodynia and may need to try topical lidocaine or compounded ointment. Recommend no intercourse for 4 weeks and nothing to touch vagina or vulva. 2. Bacterial vaginosis - ICD9: 616.10, 041.9, ICD10: N76.0, B96.89 -Flagyl 500 mg p.o. twice daily for 7 days 3. Vaginal yeast infection - ICD9: 112.1, ICD10: B37.3 -Diflucan 150 mg p.o. once 4. Herpes labialis - ICD9: 054.9, ICD10: B00.1 -Patient with 3 outbreaks this month. Will start on Valtrex 500 mg p.o. once daily for suppressive therapy. Also given prescription for acute outbreak 2 g p.o. twice daily for 1 day. Discussed with patient if he/she continues to have outbreaks while on suppressive therapy would need to increase to 1 g p.o. daily PLAN: Specimens labeled and sent to Pathology. Will notify patient of results in 1-2 weeks. Follow up in 2 weeks to discuss results. Post-procedure instructions reviewed and written material given to the patient. Deborah Rasmussen APRN.CNM documented in this encounter [facility] 03-09-2022 History of Present illness Narrative Butch is a 41 year old who presents for an annual gynecologic exam Constant urgency to urinate. Increased frequency and pelvic pressure. Incomplete emptying. Feels better when applying pressure. Sex makes feeling worse. Does not notice anything that improves. Bleeding after intercourse. Not a flow or spotting. Thinks it is external like a tear. Menses every 21 days with 5 days of flow. External vulva always red and inflamed, itching and irritated. Has used OTC yeast medication but does not notice any improvement. Anytime anything touches it itches. Cystocele and rectocele present. Bowel issues, seen GI. Complaints of diarrhea daily for last year, stool leakage. Had started pelvic floor PT in the past for rectocele and urine leakage (stress incontinence) but unable to continue due to time commitment. Has not seen GI or had work up for diarrhea. Denies any recent illness or sick contacts. Unsure if food related but tries to avoid triggers. Neurology, sumatriptan caused upset stomach, not effective. Migraines 3-4 a month. Headaches, severe 3 days prior to menses, will go away after first day of menses, this happens twice a month. Starts bilateral Behind temples then wraps around head. Takes tylenol, ibuprofen and does not help. Has not seen anyone for this. History of Pseudotumor cerebri. Menses: cycles every 21 days and 5 days of flow. Past 2 menses 2 large clots plum size. Contraception: none HPV vaccine: No Last Pap: 06/25/2018 normal HPV: 06/22/2018 negative History of abnormal pap: No Last mammogram: never Sexually active: Yes Pain with intercourse: Yes Postcoital bleeding: Yes Exercise: [place] Diet: Regular Seatbelt use: Yes OB History T0 L5 SAB0 IAB0 Ectopic0 Multiple0 Live Births0 Collections Associate History LMP: 05/25/2021, Having periods Age at Menarche: Age at First : Age at Menopause: Collections Associate History Comments: Sexual Activity: Yes; Male Contraception: Condom PAST MEDICAL HISTORY Diagnosis Date Cephalgia Pseudotumor cerebri Pyelonephritis PAST SURGICAL HISTORY Procedure Laterality Date APPENDECTOMY 08/21/1999 COLONOSCOPY GEN ANES 05/27/2021 lax anal sphincter, neg biopsies EGD 05/27/2021 mild chronic gastritis PAST SURGICAL HISTORY OF 08/21/2004 Sinus surgery FAMILY HISTORY Problem Relation Age of Onset No Known Problems Mother Hypertension Father No Known Problems Sister No Known Problems Brother No Known Problems Brother Alzheimer's Disease Maternal Grandmother Arthritis Daughter Colon Cancer No Family History SOCIAL HISTORY Social History Tobacco Use Smoking status: Never Smoker Smokeless tobacco: Never Used Vaping Use Vaping Use: Never used Substance Use Topics Alcohol use: No Drug use: No REVIEW OF SYSTEMS Abdomen: No nausea, vomiting,or constipation. No early satiety, indigestion, or increased flatulence. Bladder: No dysuria, gross hematuria, urinary frequency, urinary urgency Breast: No breast lumps, nipple d/c, overlying skin changes, redness or skin retraction. Allergies and current medication updated:Yes EXAM: BP 110/80 Ht 5' 6 (1.676 m) Wt 179 lb (81.2 kg) LMP 02/28/2022 BMI 28.89 kg/m GENERAL: pleasant, female in no apparent distress HEENT: Normocephalic, atraumatic, mucus membranes moist and no lesions NECK: Supple, full range of motion, no adenopathy and thyroid normal DERMATOLOGY: Normal, without lesions, non-icteric and non-hirsute BREAST: soft, non-tender, symmetric, no dominant mass, normal nipple-areolar complex, no lymphadenopathy and no nipple discharge CHEST: Normal inspiratory effort ABDOMEN: soft, non-tender and no masses PELVIC: external genitalia normal, normal Bartholin's glands, urethra, [place]'s glands, no vulvar lesions, no cervical lesions, good vaginal support, white discharge present, normal appearing perineal body and perianal region BIMANUAL: uterus normal size, shape and consistency, no adnexal masses and non-tender RECTOVAGINAL: deferred. NEURO: alert and oriented x3,exam grossly non-focal EXTREMITIES: normal ASSESSMENT/PLAN: 1. Encounter for gynecological examination (general) (routine) with abnormal findings - ICD9: V72.31, ICD10: Z01.411 (primary diagnosis) - Completed pelvic and breast exam - Encouraged monthly BSE - Follow up for annual exam in one year. 2. Encounter for screening mammogram for breast cancer - ICD9: V76.12, ICD10: Z12.31 - CHRISTIANA SCREENING W MONIQUE 3. Vaginal discharge - ICD9: 623.5, ICD10: N89.8 - BARB / TRICHOMONAS AMPLIFICATION - BACTERIAL VAGINOSIS AMPLIFICATION 4. Screening for condition - ICD9: V82.9, ICD10: Z13.9 - BARB / TRICHOMONAS AMPLIFICATION - BACTERIAL VAGINOSIS AMPLIFICATION - TSH BLD - T3 FREE BLD - T4 FREE/FREE THYROX - PROLACTIN BLD - CBC + DIFF - LIPID PANEL BASIC - VITAMIN D 25 HYDROXY 5. Urinary urgency - ICD9: 788.63, ICD10: R39.15 - URINE CULTURE - UA DIP, URINE (POC) - Recommend referral to pelvic floor PT to start. Would also recommend referral to urogynecology if desires surgical intervention. 6. Abnormal uterine bleeding (AUB) - ICD9: 626.9, ICD10: N93.9 - PELVIC US WHI 7. Oral herpes simplex infection - ICD9: 054.2, ICD10: B00.2 - VALACYCLOVIR 500 MG TABLET 8. Vulvar itching - ICD9: 698.1, ICD10: L29.2 -Recommend vulvar biopsy and then will treat with steroid ointment after testing complete -Reviewed uncertain if itch/scratch cycle causing the discomfort or lichen sclerosis. 1) Health maintenance: Pap done with HPV. Mammogram ordered. Nutrition, exercise and routine health maintenance exams reviewed. Calcium/Vitamin D supplementation information provided. Lipids/glucose: followed by PCP Vitamin D: followed by PCP 2) Contraception: vasectomy. Contraceptive options reviewed and information provided. 3) STD screening: Declined STD check. 4) Follow up one year or sooner as needed Deborah Rasmussen APRN.CNM documented in this encounter [facility] 07-20-2021 Note HNO ID: [id number] Author: Jan Espinoza MD Service: ? Author Type: Physician Type: Progress Notes Filed: 08/02/2021 10:05 AM Note Text: DISTANCE HEALTH VISIT ? This visit is a?distance health?encounter.??It required patient-provider interaction for the medical decision making as documented below. ? 1.???Patient has consented to this telephone and video encounter?instead of office visit due to COVID-19 pandemic 2. ??Patient and provider present during telemedicine encounter 3.???Reason: headache 4. ??Total time spent on medical discussion:???60 minutes ? Jan Espinoza MD? INITIAL CONSULT ? HEADACHE MEDICINE SERVICE DATE:?July 20, 2021 Participants: patient and provider Requesting Provider: Deborah Rasmussen APRN.CNM Recommendations of care will be communicated by shared medical record. Subjective HPI: Butch Kelly is a 40 year old female with a chief complaint of headache. 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 She was diagnosed with IIH that lasted for 3 years(Aug [id number]). After resolution of that she started to have hormone and stress related headaches. sinus headache, long hx of sinus problems. Triggered by weather changes. Treats efficiently with essential oils. Moderate pressure pain. Cant remember when was her last brain imaging. Headache Description: 1.Severity: moderate to severe 2.Duration of attacks: up to 24 hrs 3.Frequency: 4 days per week 4.Aura: no 5.Location: unilateral, voodoo, then the eyes 6.Quality: stabbing, pulsating 7.Triggers: stress, hormones(menses) 8.Associated symptoms: Nausea- yes Photophobia- yes Phonophobia- yes Vision changes- episodes of lights on both her eyes during pain phase Vertigo- yes Neck pain- no Tinnitus-yes Sinus symptoms- no Autonomic symptoms- no Worsens with simple activity- yes Avoidance of activity- yes Head pain change/trigger by valsalva maneuvers-no Positional headache- no 9. Prior Treatments: PO Sumatriptan- GI side effects. 10. Date of onset: 2012 11.Most common time of the day: 12.Onset: gradual Current medication review: 1. Excedrin helps for menstrual headaches 2. Stress headaches nothing helps Current Outpatient Medications Medication Sig - halobetasol propionate (ULTRAVATE) 0.05 % ointment - ibuprofen (MOTRIN ORAL) 0 Refill(s) - Bismuth Subsalicylate (PEPTO-BISMOL) 262 mg tab Take by mouth. - loperamide HCl (IMODIUM A-D) 2 mg tab Take 2 mg by mouth as needed. - cholestyramine-sucrose (QUESTRAN) 4 gram powder Take 4 g by mouth twice daily with meals. No current facility-administered medications for this visit. PAST MEDICAL HISTORY Diagnosis Date - Cephalgia - Pseudotumor cerebri - Pyelonephritis PAST SURGICAL HISTORY Procedure Laterality Date - APPENDECTOMY 08/21/1999 - COLONOSCOPY GEN ANES 05/27/2021 lax anal sphincter, neg biopsies - EGD 05/27/2021 mild chronic gastritis - PAST SURGICAL HISTORY OF 08/21/2004 Sinus surgery Social History Tobacco Use - Smoking status: Never Smoker - Smokeless tobacco: Never Used Vaping Use - Vaping Use: Never used Substance Use Topics - Alcohol use: No - Drug use: No FAMILY HISTORY Problem Relation Age of Onset - No Known Problems Mother - Hypertension Father - No Known Problems Sister - No Known Problems Brother - No Known Problems Brother - Alzheimer's Disease Maternal Grandmother - Arthritis Daughter - Colon Cancer No Family History ALLERGIES No Known Allergies Objective REVIEW OF SYSTEMS: GENERAL: no fevers or irritability. HEENT: no nose bleeds or other nasal problems. NECK: Negative for stiffness, lumps or significant neck swelling RESPIRATORY: Negative for cough, wheezing or respiratory distress. CARDIOVASCULAR: Negative for chest pain, syncope, lightheadness or heart racing. GI: Negative for abdominal discomfort, blood in stools or black stools or change in bowel habits : No history of dysuria, frequency or incontinence MUSCULOSKELETAL: Negative for joint pain or swelling, back pain or muscle pain. SKIN: Negative for lesions, rash, and itching. NEURO: See HPI PHYSICAL EXAM: via virtual observation General appearance: Well appearing, alert, in no acute distress, well-hydrated, well nourished. Skin: no jaundice Head: Normocephalic, no masses, atraumatic. Eyes: Anicteric sclera.Extraocular movements are grossly intact. Lungs: unlabored on room air Neuro: Negative findings: speech normal, mental status intact ASSESSMENT: - her stress and hormonal headaches meet ICHD-3 criteria for migraine without aura. - sinus headache - hx of IIH RECOMMENDATIONS: 1. Continue chiropractor since it helps 2. Trial of Zomig nasal spray 3. We also discussed Migranal 4. OTC preventives, lifestyle changes, headache diet. Information provided. 5. Follow up in 2-3 months if above plan has not helped. SIGNATURE: Jan Castaneda (more content not included)... [facility] Evaluation + Plan note No data available for this section [facility] Evaluation + Plan note Future Appointments Appointment Date:02/20/2024 10:40:00 AM Scheduled Provider:NIKHIL EDEN MD Location: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 ONC Appointment Type:SO OV Post Op [facility] Evaluation + Plan note Future Appointments Appointment Date:05/28/2024 01:00:00 PM Scheduled Provider:NIKIHL EDEN MD Location: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 [facility]C Appointment Type:SO OV Post Op [facility] Evaluation note Diagnosis Vulvar itching- Primary Pruritus of genital organs Bacterial vaginosis Vaginitis and vulvovaginitis, unspecified Vaginal yeast infection Candidiasis of vulva and vagina Herpes labialis Herpes simplex without mention of complication [facility] Diagnosis Encounter for gynecological examination (general) (routine) with abnormal findings- Primary Encounter for screening mammogram for breast cancer Vaginal discharge Leukorrhea, not specified as infective Screening for condition Screening for unspecified condition Urinary urgency Urgency of urination Abnormal uterine bleeding (AUB) Oral herpes simplex infection Herpetic gingivostomatitis Vulvar itching Pruritus of genital organs BV (bacterial vaginosis) Vaginitis and vulvovaginitis, unspecified Yeast vaginitis Candidiasis of vulva and vagina [facility] Diagnosis Encounter for IUD insertion- Primary Encounter for insertion of intrauterine contraceptive device Vaginal vault prolapse Unspecified prolapse of vaginal mahan [facility] Diagnosis Surveillance of previously prescribed intrauterine contraceptive device- Primary Intrauterine contraceptive device threads lost, initial encounter Abnormal uterine bleeding (AUB) [facility] Migraine without aura and without status migrainosus, not intractable- Primary Migraine without aura, without mention of intractable migraine without mention of status migrainosus [facility] Diagnosis Malpositioned intrauterine device (IUD), sequela- Primary [facility] Diagnosis Encounter for IUD insertion- Primary Encounter for insertion of intrauterine contraceptive device Encounter for IUD removal Encounter for removal of intrauterine contraceptive device Malpositioned intrauterine device (IUD), subsequent encounter IUD (intrauterine device) in place Presence of intrauterine contraceptive device Abnormal uterine bleeding (AUB) [facility] Diagnosis Surveillance of previously prescribed intrauterine contraceptive device- Primary [facility] Diagnosis IUD (intrauterine device) in place- Primary Presence of intrauterine contraceptive device [facility] Diagnosis IUD (intrauterine device) in place Presence of intrauterine contraceptive device Abnormal uterine bleeding (AUB) [facility] Diagnosis Pelvic pain in female- Primary Unspecified symptom associated with female genital organs [facility] Diagnosis Pelvic pain in female Unspecified symptom associated with female genital organs documented in this encounter [facility] note* Diagnosis Encounter for gynecological examination (general) (routine) with abnormal findings- Primary Screening for cervical cancer Screening for malignant neoplasm of the cervix Encounter for screening for human papillomavirus (HPV) Special screening examination for human papillomavirus (HPV) Encounter for screening mammogram for breast cancer Dense breast tissue Unintended weight gain Abnormal weight gain Menorrhagia with regular cycle Excessive or frequent menstruation IUD check up Surveillance of previously prescribed intrauterine contraceptive device Pelvic pain in female Unspecified symptom associated with female genital organs [facility]* Diagnosis Menorrhagia with regular cycle- Primary Excessive or frequent menstruation Pelvic pain in female Unspecified symptom associated with female genital organs Endometrioma Endometriosis, site unspecified Endometrial polyp Polyp of corpus uteri Cystocele, midline Rectocele [facility] No data available for this section [facility] Progress note No data available for this section [facility] Reason for referral (narrative)* Diagnostic Procedure Only (Routine) - Pending Review Specialty Diagnoses / Procedures Referred By Nina garcia Referred To Contact [facility] Diagnoses Abnormal uterine bleeding (AUB) Procedures PELVIC US WHI US PELVIC NONOBSTETRIC REAL-TIME IMAGE COMPLETE Deborah Rasmussen APRN.CNM [address] [place] [address] [facility] [address] [place] [address] Referral ID Status Reason Start Date Expiration Date Visits Requested Visits Authorized [id number] Pending Review Auto-Generat ed Referral 03/09/2022 03/09/2023 1 1 * Diagnostic Procedure Only (Routine) - Authorized Specialty Diagnoses / Procedures Referred By Contac t Referred To Contact [facility] Diagnoses Encounter for screening mammogram for breast cancer Procedures CHRISTIANA SCREENING SCREENING MAMMOGRAPHY BI 2-VIEW BREAST INC CAD Deborah Rasmussen APRN.CN [address] [place] [address] [facility] [address] [place] [address] Referral ID Status Reason Start Date Expiration Date V isits Requested Visits Authorized [id number] Authorized 03/11/2022 08/20/2022 1 1 [facility] for referral (narrative)* Diagnostic Procedure Only (Routine) - Open Specialty Diagnoses / Procedures Referred By Nina t Referred To Contact [facility] Diagnoses Surveillance of previously prescribed intrauterine contraceptive device Procedures PELVIC US [facility] US PELVIC NONOBSTETRIC REAL-TIME IMAGE COMPLETE Deborah Rasmussen APRN.CNM [address] [place] [address] [address] Referral ID Status Reason Start Date Expiration Date V isits Requested Visits Authorized [id number] Open Auto-Generate d Referral 06/16/2022 06/16/2023 1 1 [facility] for referral (narrative)* Diagnostic Procedure Only (Routine) - Authorized Specialty Diagnoses / Procedures Referred By Contac t Referred To Contact [facility] Diagnoses IUD (intrauterine device) in place Abnormal uterine bleeding (AUB) Procedures PELVIC US [facility] US PELVIC NONOBSTETRIC REAL-TIME IMAGE COMPLETE Meme Stanford MD [address] [place] [address] [facility] [address] [place] [address] Referral ID Status Reason Start Date Expiration Date Visits Requested Visits Authorized [id number] Authorized Auto-Generat ed Referral 2 08/17/2023 1 1 * Outpatient Procedure (Routine) - Pending Review Specialty Diagnoses / Procedures Referred By Nina gracia Referred To Contact [facility] Diagnoses Encounter for IUD removal Procedures REMOVE INTRAUTERINE DEVICE REMOVE INTRAUTERINE DEVICE Meme Stanford MD [address] [place] [address] [facility] [address] [place] [address] Referral ID Status Reason Start Date Expiration Date Visits Requested Visits Authorized [id number] Pending Review Auto-Generat ed Referral 08/17/2023 1 1 [facility] for referral (narrative)* Diagnostic Procedure Only (Routine) - Authorized Specialty Diagnoses / Procedures Referred By Nina garcia Referred To Contact [facility] Diagnoses Pelvic pain in female Procedures PELVIC US WHI US PELVIC NONOBSTETRIC REAL-TIME IMAGE COMPLETE Deborah Rasmussen APRN.CNM [address] [place] [address] [facility] [address] [place] [phone] Referral ID Status Reason Start Date Expiration Date Visits Requested Visits Authorized [id number] Authorized Auto-Generat ed Referral 11/24/2023 11/23/2024 1 1 [facility] for referral (narrative)* Diagnostic Procedure Only (Routine) - Pending Review Specialty Diagnoses / Procedures Referred By Nina garcia Referred To Contact [facility] Diagnoses Encounter for screening mammogram for breast cancer Dense breast tissue Procedures CHRISTIANA SCREENING W MONIQUE SCREENING DIGITAL BREAST TOMOSYNTHESIS BI SCREENING MAMMOGRAPHY BI 2-VIEW BREAST INC CAD Deborah Rasmussen APRN.CNM [address] [place] [address] [facility] [address] [place] [address] Referral ID Status Reason Start Date Expiration Date Visits Requested Visits Authorized [id number] Pending Review Auto-Generat ed Referral 12/11/2023 01/09/2025 1 1 [facility] Summary Purpose Family History No Family History Records FoundNo Family History Records FoundNo Family History Records Found No data available for this section No Family History Records Found No data available for this section No data available for this section No data available for this section No Family History Records Found No data available for this section No data available for this section No Family History Records Found No data available for this section Advance Directives Documents on File Type Date Recorded 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 Advance Directive(s) 05/27/2021 7:09 AM Documents on File Type Date Recorded 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 Advance Directive(s) 05/27/2021 7:09 AM Reason for Referral Specialty Diagnoses / Procedures Referred By Nina garcia Referred To Contact [facility] Diagnoses Vaginal vault prolapse Procedures CONSULT TO PHYSICAL THERAPY PHYSICAL THERAPY EVALUATION HIGH COMPLEX 45 MINS Deborah Rasmussen APRN.CNM [address] [place] [address] [address] Referral ID Status Reason Start Date Expiration Date Visits Requested Visits Authorized [id number] Pending Review Auto-Generat ed Referral 05/17/2022 05/17/2023 1 1 Specialty Diagnoses / Procedures Referred By Nina garcia Referred To Contact [facility] Diagnoses Encounter for IUD insertion Procedures INSERT INTRAUTERINE DEVICE LEVONORGESTREL IU 52MG 5 YR INSERT INTRAUTERINE DEVICE Deborah Rasmussen APRN.CNM [address] [place] [address] [address] Referral ID Status Reason Start Date Expiration Date Visits Requested Visits Authorized [id number] Pending Review Auto-Generat ed Referral 05/17/2022 05/17/2023 1 1 Specialty Diagnoses / Procedures Referred By Nina t Referred To Contact Diagnoses Migraine without aura and without status [place]rain[place], [place] [address] [place] [address] Referral ID Status Reason Start Date Expiration Date V isits Requested Visits Authorized [id number] Authorized 1 1 Specialty Diagnoses / Procedures Referred By Contac t Referred To Contact Diagnoses Menorrhagia with regular cycle Pelvic pain in female Endometrioma Endometrial polyp Cystocele, midline Rectocele Procedures CONSULT TO URO GYNECOLOGY OFFICE/OUTPATIENT [facility] 60 MINUTES Deborah Rasmussen APRN.CN [address] [place] [address] Referral ID Status Reason Start Date Expiration Date Visits Requested Visits Authorized [id number] Authorized PCP Requested Referral Auto-Generate d Referral 12/26/2023 12/25/2024 1 1 Specialty Diagnoses / Procedures Referred By Contac t Referred To Contact [facility] Diagnoses Menorrhagia with regular cycle Pelvic pain in female Procedures ENDOMETRIAL BIOPSY ENDOMETRIAL BX W/WO ENDOCERVIX BX W/O DILAT SPX Deborah Rasmussen APRN.CNM [address] [place] [address] [facility] [address] [place] [address] Referral ID Status Reason Start Date Expiration Date V isits Requested Visits Authorized [id number] Closed Auto-Generate d Referral 12/26/2023 08/20/2024 1 1 Medications Administered Section Inactive Administered Medications - up to 3 most recent administrations Medication Order MAR Action Action Date Dose Rate Site levonorgestrel 20 mcg/24 hours (8 yrs) 52 mg 1 Each intrauterine device (MIRENA) 1 Each, INTRAUTERINE, ONCE (UP TO 30 DAYS AMB), 1 dose, On Mon08/17/22 at 1000, Hazardous Potential Reproductive Risk Drug: Use appropriate PPE. Given 08/17/2022 10:14 AM EST 1 Each Additional Source Comments INFORMATION SOURCE (unrecogn ized section and content) DATE CREATED AUTHOR 06/01/2021 [facility] DATE CREATED AUTHOR AUTHOR'S ORGANIZ ATION 08/02/2021 [facility] DATE CREATED AUTHOR AUTHOR'S ORGANIZ ATION 03/25/2023 [facility] DATE CREATED AUTHOR AUTHOR'S ORGANIZ ATION 01/07/2024 [facility] DATE CREATED AUTHOR AUTHOR'S ORGANIZ ATION 04/27/2024 [facility] ([place]) DATE CREATED AUTHOR AUTHOR'S ORGANIZ ATION 06/01/2024 [facility] Source Comments (unrecognize d section and content) In the event this informatio n is protected by the Federal Confidentiality of Alcohol and Drug Abuse Patient Records regulations: The Federal rules restrict any use of the information to criminally investigate or prosecute any alcohol or drug abuse patient.[facility] the event this information is protected by the Federal Confidentiality of Alcohol and Drug Abuse Patient Records regulations: The Federal rules restrict any use of the information to criminally investigate or prosecute any alcohol or drug abuse patient.[facility] the event this information is protected by the Federal Confidentiality of Alcohol and Drug Abuse Patient Records regulations: The Federal rules restrict any use of the information to criminally investigate or prosecute any alcohol or drug abuse patient.[facility] the event this information is protected by the Federal Confidentiality of Alcohol and Drug Abuse Patient Records regulations: The Federal rules restrict any use of the information to criminally investigate or prosecute any alcohol or drug abuse patient.[facility] the event this information is protected by the Federal Confidentiality of Alcohol and Drug Abuse Patient Records regulations: The Federal rules restrict any use of the information to criminally investigate or prosecute any alcohol or drug abuse patient.[facility] the event this information is protected by the Federal Confidentiality of Alcohol and Drug Abuse Patient Records regulations: The Federal rules restrict any use of the information to criminally investigate or prosecute any alcohol or drug abuse patient.[facility] the event this information is protected by the Federal Confidentiality of Alcohol and Drug Abuse Patient Records regulations: The Federal rules restrict any use of the information to criminally investigate or prosecute any alcohol or drug abuse patient.[facility] the event this information is protected by the Federal Confidentiality of Alcohol and Drug Abuse Patient Records regulations: The Federal rules restrict any use of the information to criminally investigate or prosecute any alcohol or drug abuse patient.[facility] the event this information is protected by the Federal Confidentiality of Alcohol and Drug Abuse Patient Records regulations: The Federal rules restrict any use of the information to criminally investigate or prosecute any alcohol or drug abuse patient.[facility] the event this information is protected by the Federal Confidentiality of Alcohol and Drug Abuse Patient Records regulations: The Federal rules restrict any use of the information to criminally investigate or prosecute any alcohol or drug abuse patient.[facility] the event this information is protected by the Federal Confidentiality of Alcohol and Drug Abuse Patient Records regulations: The Federal rules restrict any use of the information to criminally investigate or prosecute any alcohol or drug abuse patient.[facility] the event this information is protected by the Federal Confidentiality of Alcohol and Drug Abuse Patient Records regulations: The Federal rules restrict any use of the information to criminally investigate or prosecute any alcohol or drug abuse patient.[facility] the event this information is protected by the Federal Confidentiality of Alcohol and Drug Abuse Patient Records regulations: The Federal rules restrict any use of the information to criminally investigate or prosecute any alcohol or drug abuse patient.[facility] the event this information is protected by the Federal Confidentiality of Alcohol and Drug Abuse Patient Records regulations: The Federal rules restrict any use of the information to criminally investigate or prosecute any alcohol or drug abuse patient.[facility] the event this information is protected by the Federal Confidentiality of Alcohol and Drug Abuse Patient Records regulations: The Federal rules restrict any use of the information to criminally investigate or prosecute any alcohol or drug abuse patient.[facility] the event this information is protected by the Federal Confidentiality of Alcohol and Drug Abuse Patient Records regulations: The Federal rules restrict any use of the information to criminally investigate or prosecute any alcohol or drug abuse patient.[facility] the event this information is protected by the Federal Confidentiality of Alcohol and Drug Abuse Patient Records regulations: The Federal rules restrict any use of the information to criminally investigate or prosecute any alcohol or drug abuse patient.[facility] the event this information is protected by the Federal Confidentiality of Alcohol and Drug Abuse Patient Records regulations: The Federal rules restrict any use of the information to criminally investigate or prosecute any alcohol or drug abuse patient.[facility] the event this information is protected by the Federal Confidentiality of Alcohol and Drug Abuse Patient Records regulations: The Federal rules restrict any use of the information to criminally investigate or prosecute any alcohol or drug abuse patient.[facility] Reason for Visit (unrecogniz ed section and content) Reason Comments IUD Specialty Diagnoses / Procedures Referred By Contac t Referred To Contact POLICE DISPATCHER Diagnoses Read Procedures OFFICE/OUTPATIENT ESTABLISHED HIGH MDM 40-54 MIN EST WHI PATIENT Meme Stanford MD [address] [place] [address] Meme Stanford MD [address] [place] [address] Referral ID Status Reason Start Date Expiration Date Visits Re quested Visits Authorized [id number] Closed 09/22/2022 08/20/2023 1 1 Reason Comments vulvar biopsy Specialty Diagnoses / Procedures Referred By Contac t Referred To Contact POLICE DISPATCHER Diagnoses Follow-up examination vulvar bx Procedures BIOPSY VULVA/PERINEUM 1 LESION SPX VAGINAL/VULVAR BIOPSY Deborah Rasmussen APRN.CNTonya [address] [place] [address] Deborah Rasmussen APRN.CNTonya [address] [place] [address] Referral ID Status Reason Start Date Expiration Date Visits Re quested Visits Authorized [id number] Closed 03/11/2022 08/20/2022 1 1 Reason Comments Well Woman Specialty Diagnoses / Procedures Referred By Contac t Referred To Contact POLICE DISPATCHER Diagnoses social worker aide exam Procedures EST WHI PATIENT Deborah Rasmussen APRN.CNM [address] [place] [address] Deborah Rasmussen APRN.CNTonya [address] [place] [address] Referral ID Status Reason Start Date Expiration Date V isits Requested Visits Authorized [id number] Closed Financial Clearance Required - [employer] 03/09/2022 08/20/2022 1 1 Reason Onset Date Comments Insertion Of IUD 05/17/2022 Specialty Diagnoses / Procedures Referred By Contac t Referred To Contact POLICE DISPATCHER Diagnoses Encounter for insertion of mirena IUD Mirena IUD insertion Procedures OFFICE/OUTPATIENT ESTABLISHED MOD MDM 30-39 MIN EST WHI PATIENT Deborah Rasmussen APRN.CNM [address] [place] [place] [address] Deborah Rasmussen APRN.[facility] [address] [place] [address] Referral ID Status Reason Start Date Expiration Date Visits Re quested Visits Authorized [id number] Closed 05/10/2022 08/20/2022 1 1 Reason Comments Medication Authorization Reason Comments IUD Check Specialty Diagnoses / Procedures Referred By Contac t Referred To Contact POLICE DISPATCHER Diagnoses IUD Check-Cramping Procedures EST WHI PATIENT Self Deborah Rasmussen APRN.CN [address] [place] [address] Referral ID Status Reason Start Date Expiration Date Visits Re quested Visits Authorized [id number] Closed 06/16/2022 08/20/2022 1 1 Reason Comments 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 Ultrasound Specialty Diagnoses / Procedures Referred By Contac t Referred To Contact POLICE DISPATCHER Diagnoses Reading comprehension disorder READ Procedures OFFICE/OUTPATIENT ESTABLISHED HIGH MDM 40-54 MIN EST WHI PATIENT Self Meme Stanford MD [address] [place] [address] Referral ID Status Reason Start Date Expiration Date Visits Re quested Visits Authorized [id number] Closed 06/16/2022 08/20/2022 1 1 Reason Onset Date Comments Insertion Of IUD 08/17/2022 IUD Removal 08/17/2022 Specialty Diagnoses / Procedures Referred By Nina t Referred To Contact POLICE DISPATCHER Diagnoses Malpositioned IUD Endosee IUD removal and reinsertion Procedures INSERT INTRAUTERINE DEVICE REMOVE INTRAUTERINE DEVICE In office Endosee / IUD removal and reinsertion Deborah Rasmussen APRN.[facility] [address] [place] [address] Meme Stanford MD [address] [place] [address] Referral ID Status Reason Start Date Expiration Date Visits Re quested Visits Authorized [id number] Closed 08/17/2022 08/20/2022 1 1 Specialty Diagnoses / Procedures Referred By Nina garcia Referred To Contact POLICE DISPATCHER Diagnoses IUD check up check IUD placement Procedures OFFICE/OUTPATIENT ESTABLISHED HIGH MDM 40-54 MIN EST I PATIENT Meme Stanford MD [address] [place] [address] Meme Stanford MD [address] [place] [address] Referral ID Status Reason Start Date Expiration Date Visits Re quested Visits Authorized [id number] Closed 09/22/2022 08/20/2023 1 1 Specialty Diagnoses / Procedures Referred By Nina garcia Referred To Contact [facility] Diagnoses IUD (intrauterine device) in place Abnormal uterine bleeding (AUB) Procedures PELVIC US I US PELVIC NONOBSTETRIC REAL-TIME IMAGE COMPLETE Meme Stanford MD [address] [place] [address] [facility] [address] [place] [address] Referral ID Status Reason Start Date Expiration Date V isits Requested Visits Authorized [id number] Closed Auto-Generate d Referral 09/22/2022 08/20/2023 1 1 Reason Comments Pelvic Pain Specialty Diagnoses / Procedures Referred By Contac t Referred To Contact [facility] Diagnoses Pelvic pain in female Procedures PELVIC US WHI US PELVIC NONOBSTETRIC REAL-TIME IMAGE COMPLETE Deborah Rasmussen APRN.CNM [address] [place] [address] [address] Referral ID Status Reason Start Date Expiration Date V isits Requested Visits Authorized [id number] Closed Auto-Generate d Referral 11/24/2023 11/23/2024 1 1 Reason Comments Yearly Exam Reason Comments Orders Reason Comments Endometrial Biopsy Specialty Diagnoses / Procedures Referred By Contac t Referred To Contact [facility] Diagnoses Menorrhagia with regular cycle Pelvic pain in female Procedures ENDOMETRIAL BIOPSY ENDOMETRIAL BX W/WO ENDOCERVIX BX W/O DILAT SPX Deborah Rasmussen APRN.CNTonya [address] [place] [address] [address] Referral ID Status Reason Start Date Expiration Date V isits Requested Visits Authorized [id number] Closed Auto-Generate d Referral 12/26/2023 08/20/2024 1 1 Care Teams (unrecognized sec tion and content) Care Team Personnel [facility]: [facility] Position: Quality Review Member Role: Police Records Clerk Name: NIKHIL EDEN MD Position: P4 Oncology Provider Member Role: OBGYN Address: Address: [address] [place] [address] [place] [address]- Name: EMELY BARRIENTOS MD Member Role: Primary Care Physician Address: Address: [address] [address]- Care Team Related Persons Name: JONI KELLY Address: [facility] MAIN Address: Home [address] [place], [place] [id number] [place] Name: JUAN RAMON KELLY Address: [facility] MAIN Address: Home [address] [place], [place] [id number] [place] Name: DELORES KELLY Address: [facility] Address: Home [address] [place], [place] [id number] [place] Name: DARLING KELLY Address: [facility] Address: Home [address] [place], [place] [id number] [place] Name: PARAM KELLY Coating Machine Feeder Relationship Specialty Start Date End Date Maria Fernanda Barrientos MD [address] [place], [place] [address] [phone] PCP - General Family Practice 04/19/11 Coating Machine Feeder Relationship Specialty Start Date End Date Maria Fernanda Barrientos MD [address] [place] [address] PCP - General Family Practice 04/19/11 Coating Machine Feeder Relationship Specialty Start Date End Date Maria Fernanda Barrientos MD [address] [place] [address] PCP - General Family Medicine 04/19/11 Coating Machine Feeder Relationship Specialty Start Date End Date Maria Fernanda Barrientos MD [address] [place] [address] PCP - General Family Medicine 04/19/11 Coating Machine Feeder Relationship Specialty Start Date End Date Maria Fernanda Barrientos MD [address] [place] [address] PCP - General Family Medicine 04/19/11 Coating Machine Feeder Relationship Specialty Start Date End Date Maria Fernanda Barrientos MD [address] [place] [address] PCP - General Family Medicine 04/19/11 Coating Machine Feeder Relationship Specialty Start Date End Date Maria Fernanda Barrientos MD [address] [place] [address] PCP - General Family Medicine 04/19/11 Coating Machine Feeder Relationship Specialty Start Date End Date Maria Fernanda Barrientos MD [address] [place] [address] PCP - General Family Medicine 04/19/11 Coating Machine Feeder Relationship Specialty Start Date End Date Maria Fernanda Barrientos MD [address] [place] [address] PCP - General Family Medicine 04/19/11 Coating Machine Feeder Relationship Specialty Start Date End Date Maria Fernanda Barrientos MD [address] [place] [address] PCP - General Family Medicine 04/19/11 Coating Machine Feeder Relationship Specialty Start Date End Date Maria Fernanda Barrientos MD [address] [place] [address] PCP - General Family Medicine 04/19/11 Coating Machine Feeder Relationship Specialty Start Date End Date Maria Fernanda Barrientos MD [address] [place] [address] PCP - General Family Medicine 04/19/11 Coating Machine Feeder Relationship Specialty Start Date End Date Maria Fernanda Barrientos MD [address] [place] [address] PCP - General Family Medicine 04/19/11 Coating Machine Feeder Relationship Specialty Start Date End Date Maria Fernanda Barrientos MD [address] [place] [address] PCP - General Family Medicine 04/19/11 Coating Machine Feeder Relationship Specialty Start Date End Date Maria Fernanda Barrientos MD [address] [place] [address] PCP - General Family Medicine 04/19/11 Coating Machine Feeder Relationship Specialty Start Date End Date Maria Fernanda Barrientos MD [address] [place] [address] PCP - General Family Medicine 04/19/11 Coating Machine Feeder Relationship Specialty Start Date End Date Maria Fernanda Barrientos MD [address] [facility] [place], [place] [address] PCP - General Family Medicine 04/19/11 FOR RECORDS PERTAINING TO PATIENTS WHO ARE OR HAVE BEEN ENROLLED IN A CHEMICAL DEPENDENCY/SUBSTANCEABUSE PROGRAM, SOME INFORMATION MAY BE OMITTED. This clinical summary was aggregated from multiple sources. Caution should be exercised in using it in the provision of clinical care. This summary normalizes information from multiple sources, and as a consequence, information in this document may materially change the coding, format and clinical context of patient data. In addition, data may be omitted in some cases. CLINICAL DECISIONS SHOULD BE BASED ON THE PRIMARY CLINICAL RECORDS. [facility]. provides no warranty or guarantee of the accuracy or completeness of information in this document.
== END | disposition home or self-care (01) ==
LOC: US 07:29
PROVIDERS: PCP Family Medicine; Referring Provider Family Medicine; Visit Provider Family Medicine
DX: R10.11 Right upper quadrant pain (principal)
CPT/HCPCS: 76705

== ENCOUNTER → 2024-07-31 | Outpatient (CLI) | payer OTHER, SELFPAY ==
--- NOTE | 2024-07-31 08:41 | NM_ITS ---
CLINICAL: 43-year-old female with history of abdominal pain. RADIONUCLIDE HEPATOBILIARY SCINTIGRAPHY COMPARISON: Abdominal ultrasound report 06/10/2024 FINDINGS: Following the intravenous administration of 5.7 mCi of 99m Tc Mebrofenin, hepatobiliary images reveal: 1. Relatively prompt and homogeneous radiopharmaceutical concentration is noted by a normal sized liver. No parenchymal defects are identified. 2. Gallbladder activity is identified at 10 minutes post radiopharmaceutical administration. 3. Small intestinal tract is observed at 30 minutes following tracer injection. 4. Washout of the radiopharmaceutical by the hepatic parenchyma appears qualitatively normal. Cholecystokinin (0.02 ug/kg) was administered intravenously over a 30-minute period. The post CCK gallbladder ejection fraction calculated at 20 minutes following Cholecystokinin administration was noted to be 60.0 % (normal greater than 35%). During 30 minutes of post CCK imaging, there is no scintigraphic evidence of reflux of the radiotracer into the common hepatic duct or refilling of the gallbladder. CO/Hepatobilliary Img w/Pharm Int IMPRESSION: 1. NORMAL 99m Tc Mebrofenin hepatobiliary imaging examination with Cholecystokinin. A. A gallbladder ejection fraction calculated to be greater than 35% following the administration of Cholecystokinin makes the probability of functional hepatobiliary disease (gallbladder and/or sphincter of Oddi dyskinesia) and/or organic hepatobiliary disease (chronic acalculous cholecystitis and/or cystic duct syndrome) to be low. (Doreen Stewart et al, Journal of Nuclear Medicine 32:1695, 1991). Electronically Signed: Justin Benson DO at 7:58 EST ,
== END | disposition home or self-care (01) ==
LOC: NM 08:36
PROVIDERS: PCP Family Medicine; Referring Provider Family Medicine; Visit Provider Family Medicine
DX: R10.9 Unspecified abdominal pain (principal)
CPT/HCPCS: 78227; A9537; J2805